=== PATIENT | male | born 1960 | race Caucasian/White ===

== ENCOUNTER → 2019-08-20 | Outpatient (REF) | payer OTHER ==
[~2019-08-20] MED LIST: ASPI325T5 PO; ATIV0.5T3 PO; BENA10TA PO; CEFD250S16 PO; FOLI400T PO; GABA300C2 PO; LEXA1TAB PO; MAG-400T7 PO; MICR10CA PO; PANT40TA2 PO; TYLE325T5 PO; VITA250L PO; verapamil PO
[2019-08-20 12:52] LABS: ALT/SGPT 43 U/L (12-78); BILIRUBIN,TOTAL 0.6 MG/DL (0.2-1.0); BLOOD UREA NITROGEN 24 MG/DL (7-18); CALCIUM LEVEL 9.3 MG/DL (8.8-10.2); CARBON DIOXIDE LEVEL 27 MEQ/L (21-32); CHLORIDE LEVEL 107 MEQ/L (98-107); CHOLESTEROL LEVEL 181 MG/DL (<200); CHOLESTEROL RISK RATIO 2.919 (<5); CREATININE FOR GFR 0.73 MG/DL (0.70-1.30); GLOMERULAR FILTRATION RATE > 60.0 (>49); GLUCOSE, FASTING 138 MG/DL (70-100); HDL CHOLESTEROL 62 MG/DL (>40); LDL CHOLESTEROL 99 MG/DL (<100); NON-HDL-C 119 MG/DL; POTASSIUM SERUM 3.6 MEQ/L (3.5-5.1); SODIUM LEVEL 140 MEQ/L (136-145); TOTAL PROTEIN 7.6 GM/DL (6.4-8.2); TRIGLYCERIDES LEVEL 99 MG/DL (<150)
[2019-08-20 15:23] LABS: MALB URINE SIEMENS 18.5 MG/L; MAU/CREAT RATIO 9.5 MCG/MG (0.0-30.0)
[2019-08-20 16:54] LABS: HEMOGLOBIN A1c 6.6 %
== END ==
LOC: M SFHCPLAZ 10:21
PROVIDERS: ATTEND Nurse Practitioner Adult Health
DX: E11.9 Type 2 diabetes mellitus without complications (principal); E78.2 Mixed hyperlipidemia; I10 Essential (primary) hypertension

== ENCOUNTER → 2019-08-28 | Outpatient (CLI) | payer OTHER ==
--- NOTE | 2019-08-29 09:33 | ECHO ---
DATE OF PROCEDURE: 08/28/2019 DATE OF : 1960 REFERRING PROVIDER: SUNITA Coffman PATIENT LOCATION: Outpatient. REASON FOR THE STUDY: Heart murmur, abnormal EKG. 2-D MEASUREMENTS: IVS: 1.7 cm LV: 4.9 cm LVPW: 1.7 cm LA: 3.8 cm Aorta: 3.6 cm IVC: 1.2 cm DOPPLER MEASUREMENTS: Peak velocity across the aortic valve: 1.6 m/s Peak velocity across the LVOT: 1.1 m/s Mitral E: 0.67, Mitral A: 0.76 with a ratio of 0.9 Maximum tricuspid valve velocity: 2.0 m/s 2-D COMMENTS: 1. Normal left ventricular size with moderately increased left ventricular wall thickness. Left ventricular systolic function is normal, estimated at 60-65%. 2. Normal left atrium. Normal right atrium and right ventricle. 3. The atrial septum appeared to be normal without evidence of defect or shunt. 4. Normal aortic root. 5. Trace pericardial effusion was noted, no evidence of cardiac component. 6. Mildly calcified aortic valve with normal leaflet excursion. Normal tricuspid valve, pulmonic valve, and mitral valve. The proximal pulmonary artery branches were not well visualized. 7. The inferior vena cava was normal in size, central venous pressure is most likely normal. DOPPLER: It detects trace mitral regurgitation, mild tricuspid regurgitation, mild pulmonic regurgitation. The calculated pulmonary artery systolic pressure was normal. Abnormal relaxation pattern was noted across the mitral valve leaflets as well as the mitral valve annulus consistent with features of grade 1 left ventricular diastolic dysfunction. IMPRESSION: 1. Normal global left ventricular systolic function with probably moderate concentric left ventricular hypertrophy. There are some features of grade 1 left ventricular diastolic dysfunction manifested by abnormal relaxation. 2. Aortic valve sclerosis without stenosis or aortic radiation. 3. Trace mitral regurgitation. 4. Trace to mild tricuspid regurgitation with a normal calculated pulmonary artery systolic pressure. 5. Mild pulmonic regurgitation. 6. Trace pericardial effusion, no evidence of cardiac tamponade. [facility]
== END ==
LOC: M CARPUL 08:48
PROVIDERS: ATTEND Nurse Practitioner Adult Health
DX: I45.10 Unspecified right bundle-branch block (principal); R01.1 Cardiac murmur, unspecified

== ENCOUNTER → 2019-11-28 | Outpatient (REF) | payer OTHER ==
[2019-11-28 11:00] LABS: ALBUMIN 3.8 GM/DL (3.2-5.2); ALT/SGPT 89 U/L (12-78); BILIRUBIN,TOTAL 0.7 MG/DL (0.2-1.0); BLOOD UREA NITROGEN 16 MG/DL (7-18); CARBON DIOXIDE LEVEL 30 MEQ/L (21-32); CHLORIDE LEVEL 102 MEQ/L (98-107); CHOLESTEROL LEVEL 184 MG/DL (<200); CHOLESTEROL RISK RATIO 2.875 (<5); CREATININE FOR GFR 0.83 MG/DL (0.70-1.30); GLOMERULAR FILTRATION RATE > 60.0 (>49); GLUCOSE, FASTING 195 MG/DL (70-100); HDL CHOLESTEROL 64 MG/DL (>40); LDL CHOLESTEROL 92 MG/DL (<100); NON-HDL-C 120 MG/DL; POTASSIUM SERUM 4.3 MEQ/L (3.5-5.1); SODIUM LEVEL 138 MEQ/L (136-145); TOTAL PROTEIN 7.6 GM/DL (6.4-8.2); TRIGLYCERIDES LEVEL 140 MG/DL (<150)
[2019-11-28 12:10] LABS: HEMOGLOBIN A1c 7.2 %
== END ==
LOC: M SFHCPLAZ 08:36
PROVIDERS: ATTEND Nurse Practitioner Adult Health
DX: I10 Essential (primary) hypertension (principal); E11.9 Type 2 diabetes mellitus without complications; E78.2 Mixed hyperlipidemia

== ENCOUNTER 2019-12-31 07:12 | Inpatient (IN) | payer OTHER ==
[~2019-12-31] VITALS: Ht 170.2 cm; Wt 97.5 kg
[2019-12-31] VITALS (7 sets, daily range): BP systolic 109–120; BP diastolic 55–79
[2019-12-31] MEDS ORDERED: NS 1,000 ML IV ONE ×3 (07:45→13:30)
[2019-12-31 08:27] LABS: HEMATOCRIT 36.4 % (42.0-52.0); HEMOGLOBIN 12.8 g/dl (13.5-17.5); MEAN CORPUSCULAR HEMOGLOBIN 31.8 pg (27.0-33.0); MEAN CORPUSCULAR HGB CONC 35.2 g/dl (32.0-36.5); MEAN CORPUSCULAR VOLUME 90.3 fl (80.0-96.0); PLATELET COUNT, AUTOMATED 172 10^3/uL (150-450); RED BLOOD COUNT 4.03 10^6/uL (4.30-6.10); WHITE BLOOD COUNT 6.5 10^3/uL (4.0-10.0)
[2019-12-31 08:38] LABS: PARTIAL THROMBOPLASTIN TIME 26.6 SECONDS (24.2-38.5); PROTHROMBIN TIME 13.4 SECONDS (12.5-14.3)
[2019-12-31 08:47] LABS: ATYPICAL LYMPH 1 % (0-5); EOSINOPHILS 2 % (0-3); LYMPHOCYTES 33 % (16-44); METAMYELOCYTES 2 % (0-0); MONOCYTES 4 % (0-5); NEUTROPHILS 24 % (28-66); PLATELET ESTIMATE NORMAL (NORMAL)
[2019-12-31] MEDS ORDERED: FOLIC ACID 1 MG TAB PO SCH (09:00)
[2019-12-31] MEDS ORDERED: MULTIVITAMINS/MINERALS THERAP 1 TAB PO SCH (09:00)
--- NOTE | 2019-12-31 10:17 | REP ---
INDICATION: cough/fever COMPARISON: 02/12/2013 TECHNIQUE: Portable AP view of the chest FINDINGS: The mediastinum and cardiac silhouette are stable and within normal limits for portable technique. The lung srivastava are clear without acute consolidation, effusion, or pneumothorax. Skeletal structures are intact. IMPRESSION: No acute cardiopulmonary process appreciated. <Electronically signed by Delfin Gatica > 12/31/19 [id number]
[2019-12-31 10:45] LABS: ALBUMIN 2.9 GM/DL (3.2-5.2); BILIRUBIN,DIRECT 2.4 MG/DL (0.0-0.2); BILIRUBIN,TOTAL 2.8 MG/DL (0.2-1.0); CK-MB VALUE MASS 11.9 NG/ML (<3.6); CREATININE FOR GFR 2.15 MG/DL (0.70-1.30); ETHYL ALCOHOL (ETHANOL) 0.003 % (0.000-0.010); GLOMERULAR FILTRATION RATE 33.5 (>49); MB/CK RELATIVE INDEX 1.36 (< OR =4); POTASSIUM SERUM 3.4 MEQ/L (3.5-5.1); TOTAL PROTEIN 6.5 GM/DL (6.4-8.2); TROPONIN I 0.04 NG/ML (< 0.10)
[2019-12-31] MEDS ORDERED: PIPERACILLIN/TAZOBACTAM SOD 3.375 GM in D5W MINI-BAG PLUS 50 ML IV ONE (11:15)
--- NOTE | 2019-12-31 12:53 | REP ---
INDICATION: leukocytosis/ vomiting. COMPARISON: None. TECHNIQUE: CT chest performed without the use of intravenous contrast. Sagittal and coronal reconstruction images are performed. FINDINGS: Lungs: There are bilateral fibro atelectatic changes. Mediastinum: No gross adenopathy. Katharina: No gross adenopathy. Axilla: No gross adenopathy. Pleura: No effusion. Heart: Not enlarged. Thoracic aorta: No aneurysm. Visualized osseous structures: There are mild degenerative changes of the spine without compression deformity. IMPRESSION: Fibro atelectatic changes in the dependent lungs with no acute abnormalities. <Electronically signed by Silvestre Fleming > 12/31/19 [id number]
--- NOTE | 2019-12-31 13:07 | REP ---
INDICATION: leukocytosis/ vomiting COMPARISON: None. TECHNIQUE: CT Scan of the abdomen and pelvis was performed without intravenous contrast. Sagittal and coronal reconstruction images performed. FINDINGS: Lung bases: There is a small hiatal hernia. Liver: There is a hepatomegaly, the length of the liver is approximately 22.5 cm. There is heterogeneous diffuse fatty infiltration of the liver. Gallbladder: Unremarkable. Spleen: Grossly unremarkable.. Adrenals: Nodular enlargement of the left adrenal gland is compatible with adrenal adenoma, within maximum diameter is 3 cm. Pancreas: Tiny pancreatic calcifications are seen compatible with prior pancreatitis. There is a cystic mass of the head of the pancreas extending anteriorly and superiorly with a maximum diameter of 5 cm. Kidneys: No hydronephrosis. A punctate calcification is seen in the left renal collecting system.. Ureters demonstrate no dilatation or calculus. Small and large bowel: There is sigmoid and left colonic diverticulosis without evidence of acute diverticulitis. There is a long segment of distal ileum (not terminal ileum) which demonstrates wall thickening and surrounding inflammatory change, with mild dilatation. This is compatible with some type of inflammatory bowel disease. Free fluid: None. Abdominal aorta: No aneurysm. Adenopathy: None. Appendix: Not inflamed. Osseous structures: There are degenerative changes of the spine without compression deformity. Pelvis: No mass. No bladder calculus seen. There is a relatively large right inguinal hernia containing noninflamed fat as well as a portion of the urinary bladder. IMPRESSION: There is a long segment of distal ileum (not terminal ileum) which demonstrates wall thickening and surrounding inflammatory change, with mild dilatation. This is compatible with some type of inflammatory bowel disease. Large right inguinal hernia containing noninflamed fat as well as a portion of the urinary bladder. Tiny pancreatic calcifications compatible with prior pancreatitis. Cystic mass head of the pancreas 5 cm in diameter. Hepatomegaly with diffuse fatty infiltration of the liver. Small hiatal hernia. <Electronically signed by Silvestre Fleming > 12/31/19 [id number]
[2019-12-31] MEDS ORDERED: PANT40TA29 PO (14:10)
[2019-12-31] MEDS ORDERED: LEVE1INJ5 SQ (14:10)
[2019-12-31] MEDS ORDERED: TADA20TA PO (14:10)
[2019-12-31] MEDS ORDERED: FENO145T7 PO (14:10)
[2019-12-31] MEDS ORDERED: PRAZ2CAP PO (14:10)
[2019-12-31] MEDS ORDERED: GABA-843 PO ×2 (14:10)
[2019-12-31] MEDS ORDERED: ESCI20TA PO (14:10)
[2019-12-31] MEDS ORDERED: ARIP1TAB6 PO (14:10)
[2019-12-31] MEDS ORDERED: VERA360C PO (14:10)
[2019-12-31] MEDS ORDERED: AMLO1TAB24 PO (14:10)
[2019-12-31] MEDS ORDERED: OLME40TA PO (14:10)
[2019-12-31] MEDS ORDERED: HYDR100T PO (14:10)
[2019-12-31] MEDS ORDERED: HUMA100I5 SQ (14:10)
[2019-12-31] MEDS ORDERED: METO1TAB33 PO (14:10)
[2019-12-31] MEDS ORDERED: NS 1,000 ML IV SCH (14:45)
[2019-12-31] MEDS ORDERED: THIAMINE 100 MG TAB PO ONE (14:45)
[2019-12-31] MEDS ORDERED: LORazepam 2 MG TAB PO PRN (14:45)
--- NOTE | 2019-12-31 15:29 | HPEPDOC ---
[facility] Medical History & Physical Date of Admission Dec 31, 2019 Date of Service: Dec 31, 2019 Attending Physician: Caroline Edmonds MD History and Physical CHIEF COMPLAINT: Increased weakness, diarrhea HISTORY OF PRESENT ILLNESS: Patient is a 59-year-old male with past mental history of hypertension, alcohol abuse, peripheral neuropathy, diabetes mellitus type 2, GERD, BPH, erectile dysfunction who presented to [facility] emergency room with the chief complaint of increased weakness and diarrhea since 12/28/2019. The patient states that beginning 12/28/2019, and experiencing up to 5 loose, watery bowel movements associated with increased weakness, fever of 103.4 at home, recent fall over the past several days. He denies any recent sick contacts, recent antibiotic use, recent hospitalizations, change in medications, change in diet, nausea/vomiting, shortness of breath, chest pain, decreased appetite or decreased by mouth intake. The patient is a heavy drinker and drinks 1 pint of vodka a day and has done so for over 20 years. His last drink was on 12/26/2019 and he has not been experiencing any signs or symptoms of withdrawal he states. He denies tremoring, hallucinations, diaphoresis. In the emergency room WBC 6.5, 34 bands seen on differential. Sodium was low at 129, chloride low at 89, potassium low at 3.4. Creatinine elevated at 2.15, creatinine is normal at baseline. Lactic acid elevated at 2.3, T bili 2.8, D bili 2.4, AST 534, ALP 193, lipase normal, CK-MB 1.9, troponin negative. The patient was given a total of over 3 L of normal saline for a blood pressure low at 88/36, all other vital signs were within normal limits. He was afebrile on exam. CT of the abdomen and pelvis showed a long segment of distal ileum (not terminal ileum) which demonstrates wall thickening and surrounding inflammatory change, with mild dilatation, poss compatible with some type of inflammatory bowel disease. Hepatomegaly and fatty liver seen. CT chest without contrast: neg for acute findings. Blood pressure improved after aggressive fluid hydration the patient remained weak. The patient was admitted for hypotension likely secondary to dehydration due to diarrhea, rule out infectious etiology, SIRS, alcoholic hepatitis, acute kidney injury likely prerenal cause. REVIEW OF SYSTEMS: CONSTITUTIONAL: Denies unexplained weight gain or weight loss, night sweats EYES: Denies eye drainage, eye pain, visual changes, dry/irritated eye EARS, NOSE, MOUTH, THROAT: Denies difficulty hearing, ringing in ears, mouth sores, loose teeth, sore throat, facial numbness or pain NECK: Denies swollen glands CARDIOVASCULAR: Denies irregular heartbeat, racing heart, chest pains, swelling of feet or legs, pain in legs with walking RESPIRATORY: Denies shortness of breath, night sweats, wheezing, sputum production, oxygen at home, coughing up blood, cough lasting > 1 month GASTROINTESTINAL: Denies abdominal pain, constipation, bloody stool, heartburn, nausea, vomiting GENITOURINARY: Denies painful urination, bloody urine, frequent urination, urgency, leaking urine, impotence MUSCULOSKELETAL: Denies joint pain, muscle pain, leg swelling INTEGUMENTARY: Denies rash, itching, new skin lesion, change in existing skin lesion, hair loss or increase, breast changes. NEUROLOGICAL: Denies headaches, dizziness, numbness or tingling PSYCHIATRIC: Denies recurrent bad thoughts, mood swings, hallucinations PAST MEDICAL HISTORY: 1. HTN 2. Alcohol abuse 3. Depression 4. Peripheral neuropathy 5. DM type II 6. GERD 7. BPH 8. Erectile dysfunction PAST SURGICAL HISTORY: 1. Left total knee replacement FAMILY HISTORY: Father: cancer, at 71 y/o Mother: healthy, Alive SOCIAL HISTORY: Alcohol use daily 1 pint of vodka per day, greater than 20 years. Last drink 12/26/2019. Prior smoker of cigars for 5 years quit recently, exact date unknown. Denies use of drugs. Primary care provider is local. He has been to rehabilitation in the past for his alcohol use most recently earlier this year. He is a full code. ALLERGIES: Please see below. HOME MEDICATIONS: Please see below. PHYSICAL EXAMINATION: VS: please see below CONSTITUTIONAL: Weak appearing, No acute distress, resting comfortably, AAO x 3 EYES: PERRLA, EOM intact HENT, MOUTH: Normocephalic, atraumatic, dry mucous membranes NECK: SUPPLE, no JVD, no lymphadenopathy, no carotid bruit CV: Regular rate and rhythm, S1S2 normal, no murmurs/rubs/gallops RESPIRATORY: Clear to auscultation bilaterally, no rales/rhonchi/wheezes GI: obese abd, BS positive in 4 quadrants, soft, nontender, nondistended, no rebound or guarding, no organomegaly : Deferred MUSCULOSKELETAL: Normal ROM. No cyanosis, clubbing, swelling, joint deformity, extremity edema INTEGUMENTARY: Intact, no rashes, no lesions, no erythema NEUROLOGIC: Cranial Nerves II-XII are intact, no focal deficits PSYCHIATRIC: Flat affect LABORATORY/MICROBIOLOGY: Please see below Blood cultures x 2 sets: pending GI panel: pending IMAGING: CT abd/pelvis: There is a long segment of distal ileum (not terminal ileum) which demonstrates wall thickening and surrounding inflammatory change, with mild dilatation. This is compatible with some type of inflammatory bowel disease. Large right inguinal hernia containing noninflamed fat as well as a portion of the urinary bladder. Tiny pancreatic calcifications compatible with prior pancreatitis. Cystic mass head of the pancreas 5 cm in diameter. Hepatomegaly with diffuse fatty infiltration of the liver. Small hiatal hernia. CT chest without contrast: Fibro atelectatic changes in the dependent lungs with no acute abnormalities. ASSESSMENT: 59-year-old male with past mental history of hypertension, alcohol abuse, peripheral neuropathy, diabetes mellitus type 2, GERD, BPH, erectile dysfunction who was admitted for hypotension likely secondary to dehydration due to diarrhea, rule out infectious etiology, SIRS, alcoholic hepatitis, acute kidney injury likely prerenal cause. PLAN: #Hypotension likely multifactorial 2/2 to dehydration from diarrhea, medication use -Hx of hypertension, on hydralazine, amlodipine, omelsartan and verapamil- all of which patient has been taking daily with diarrhea -Cannot r/o sepsis, septic shock as cause -S/p 3 L NS bolus in ER with improvement of BP from 68/36 --> 120/70 -Holding all antihypertensive meds -F/u infectious w/u, treatment -C/w IVFs at 125 cc/hr, tele, repeat lactic acid #SIRS -WBC wnl, Bandemia: 34, febrile at home but currently afebrile , LA elevated -Source is likely bacterial/gut -Discussed with GI who is consulted -F/u US abd to r/o gallbladder pathology/obstructive pathology, repeat LA, labs, cultures -Started on zosyn, IVFs at 125 cc/hr #Alcoholic hepatitis 2/2 to alcohol abuse -Hx of heavy alcohol abuse, elevated AST/ALT, D and T Bili -this can cause many of his presenting symptoms alone per GI -F/u daily CMP, avoid hepatotoxic medications -US abd to r/o gallbladder pathology -CIWA protocol with ativan, thiamine, folate, MV #Acute kidney injury likely 2/2 to prerenal cause, dehydration, hypovolemia -Cr at baseline is normal, Cr today is 2.3 -Avoid all nephrotoxic meds -F/u daily labs -C/w IVFs #Hypoglycemia likely 2/2 to decreased Po intake and acute infection -Hx of DM type II -BG 65 on admission -Holding all home insulins -FS AC/HS with CLD, advance diet to consistent carb as tolerated -Reincorporate insulins when BS normalize #Hepatomegaly, fatty liver 2/2 to alcohol abuse -AST/ALT, Bili all elevated -Daily CMP -GI to evaluate #Peripheral neuropathy -Resume gabapentin in AM #GERD -IV PPI, change to Po when tolerating diet #BPH -Holding home prazosin with low BP for now #Erectile dysfunction -Holding home tadalafil #HLD -Holding fenofibrate for now #DVT px -lovenox SC DISPOSITION: Admitted under inpatient status. GI consulted to see. Plan is PT/OT when BP normalizes/stabilizes. Vital Signs Vital Signs Date Time Temp Pulse Resp B/P (MAP) Pulse Ox O2 Delivery O2 Flow Rate FiO2 12/31/19 15:00 81 132/83 12/31/19 14:49 18 93 Room Air 12/31/19 08:25 99.0 Laboratory Data Labs 24H Laboratory Tests 2 12/31/19 07:37: Neutrophils (%) (Auto) , Nucleated Red Blood Cells % (auto) 1.7H, Neutrophils 24L, Band Neutrophils 34H, Lymphocytes (Manual) 33, Monocytes (Manual) 4, Eosinophils (Manual) 2, Metamyelocytes 2H, Atypical Lymphocytes 1, Red Blood Cell Morphology NORMAL, Platelet Estimate NORMAL, Prothrombin Time 13.4, P rothromb Time International Ratio 1.00, Activated Partial Thromboplast Time 26.6, Anion Gap 13, Glomerular Filtration Rate 33.5L, Lactic Acid Level 2.3*H, Calcium Level 11.0H, Total Bilirubin 2.8H, Direct Bilirubin 2.4H, Aspartate Amino Transf (AST/SGOT) 534H, Alanine Aminotransferase (ALT/SGPT) 193H, Alkaline Phosphatase 208H, Total Creatine Kinase 877H, Creatine Kinase MB 11.9H, Creatine Kinase MB Relative Index 1.36, Troponin I 0.04, Total Protein 6.5, Albumin 2.9L, Albumin/Globulin Ratio 0.8, Amylase Level 72, Lipase 211, Ethyl Alcohol Level 0.003 12/31/19 07:48: Bedside Glucose (Misc Panel) 90 12/31/19 09:07: Urine Color DAVID, Urine Appearance HAZY, Urine pH 5.0, Urine Specific [place] 1.018, Urine Protein 1+H, Urine Glucose (UA) NEGATIVE, Urine Ketones NEGATIVE, Urine Blood 2+H, Urine Nitrite NEGATIVE, Urine Bilirubin NEGATIVE, Urine Urob ilinogen 4.0H, Urine Leukocyte Esterase NEGATIVE, Urine WBC (Auto) 2, Urine RBC (Auto) 1, Urine Hyaline Casts (Auto) 0, Urine Bacteria (Auto) NEGATIVE, Urine Squamous Epithelial Cells 0, Urine Mucus (Auto) SMALL, Urine Sperm (Auto) 12/31/19 12:46: Bedside Glucose (Misc Panel) 95 CBC/BMP Laboratory Tests 12/31/19 07:37 Microbiology Microbiology 12/31/19 Blood Culture, Received Pending 12/31/19 Blood Culture, Received Pending 12/31/19 Respiratory Virus Panel (PCR) (ESTEFANIA) - Final, Complete 12/31/19 Campylobacter (PCR), Received Pending 12/31/19 Clostridium difficile Toxin A&B PCR, Received Pending 12/31/19 Plesiomonas shigelloides (PCR), Received Pending 12/31/19 Salmonella (PCR)(ESTEFANIA), Received Pending 12/31/19 Vibrio Species (PCR), Received Pending 12/31/19 Vibrio Cholerae (PCR), Received Pending 12/31/19 Yersinia enterocolitica (PCR), Received Pending 12/31/19 Enteroaggregative E. coli (PCR), Received Pending 12/31/19 Enteropathogenic E. coli (PCR), Received Pending 12/31/19 Enterotoxigenic E. coli (PCR), Received Pending 12/31/19 E. coli Shiga-like Toxin (PCR), Received Pending 12/31/19 Escherichia coli 0157 (PCR), Received Pending 12/31/19 Enteroinvasive E. coli/Shigella PCR, Received Pending 12/31/19 Cryptosporidium (PCR), Received Pending 12/31/19 Cyclospora cayetanensis (PCR), Received Pending 12/31/19 Entamoeba histolytica (PCR), Received Pending 12/31/19 Giardia lamblia (PCR), Received Pending 12/31/19 Adenovirus Type F 40/41 (PCR), Received Pending 12/31/19 Astrovirus (PCR), Received Pending 12/31/19 Norovirus GI/GII (PCR), Received Pending 12/31/19 Rotavirus A (PCR), Received Pending 12/31/19 Sapovirus I/II/IV/V (PCR), Received Pending Home Medications Scheduled Amlodipine Besylate (Amlodipine Besylate) 5 Mg Tablet, 5 MG PO DAILY Aripiprazole (Aripiprazole) 5 Mg Tablet, 5 MG PO QHS Escitalopram Oxalate (Escitalopram Oxalate) 20 Mg Tablet, 20 MG PO DAILY Fenofibrate Nanocrystallized (Fenofibrate) 145 Mg Tablet, 145 MG PO QHS Gabapentin (Gabapentin) 300 Mg Capsule, 300 MG PO QAM Gabapentin (Gabapentin) 300 Mg Capsule, 600 MG PO QHS Insulin Detemir (Levemir Flextouch) 100 Unit/1 Ml Insuln.pen, 45 UNITS SQ BID Insulin Lispro (Humalog Kwikpen U-100) 100 Unit/1 Ml Insuln.pen, 1 DOSE SQ AC PER SLIDING SCALE Metoprolol Succinate (Metoprolol Succinate) 100 Mg Tab.er.24h, 100 MG PO DAILY Olmesartan Medoxomil (Olmesartan Medoxomil) 40 Mg Tablet, 40 MG PO DAILY Pantoprazole Sodium (Pantoprazole Sodium) 40 Mg Tablet.dr, 40 MG PO DAILY Prazosin Hcl (Prazosin HCl) 2 Mg Capsule, 2 MG PO QHS Verapamil HCl (Verapamil HCl) 360 Mg Cap24h.pel, 360 MG PO DAILY hydrALAZINE HCL (Hydralazine HCl) 100 Mg Tablet, 100 MG PO BID Scheduled PRN Tadalafil (Tadalafil) 20 Mg Tablet, 20 MG PO DAILY PRN for ERECTILE DYSFUNCTION Allergies Coded Allergies: benazepril (Verified Allergy, Severe, ANGIOEDEMA, 12/31/19) ENVIROMENTAL (Verified Allergy, Unknown, 06/28/04) A-FIB/CHADSVASC A-FIB History Current/History of A-Fib/PAF?: No Current PO Anticoag Therapy: No Age/Risk Factor Scoring CHADSVASC: CHADSVASC Response (Comments) Value Age Risk Factor Age < 65 years old 0 Gender Risk Factor Male 0 Hx of CHF No 0 Hx of HTN Yes 1 Hx of Stroke/TIA/or VTE No 0 Hx of Diabetes Yes 1 Hx of Vascular Disease No 0 Total 2 Treatment Other anticoagulant ordered: Caroline Kirby MD Dec 31, 2019 15:29
[2019-12-31] MEDS: PANTOPRAZOLE 40MG VIAL (C9113 PER 1) IV SCH (17:41)
[2019-12-31] MEDS ORDERED: LORazepam 2 MG/ML VIAL IV PRN ×2 (18:15)
[2019-12-31] MEDS ORDERED: DEXTROSE 50% 50 ML SYRINGE IV STA (18:20)
[2019-12-31] MEDS: D5W/0.9% SODIUM CHLORIDE 1,000 ML IV SCH (18:26)
[2019-12-31 18:47] LABS: ABG BASE EXCESS 0.6 (-2.0-2.0); ABG HCO3 25.1 MEQ/L (22.0-26.0); ABG O2 SATURATION 96.2 % (95.0-99.0); ABG PARTIAL PRESSURE CO2 40.2 mmHg (35.0-45.0); ABG PARTIAL PRESSURE O2 83.1 mmHg (75.0-100.0); ABG TOTAL CO2 26.4 MEQ/L (23.0-31.0); ABG pH (ARTERIAL) 7.414 UNITS (7.350-7.450)
[2019-12-31] MEDS: PIPERACILLIN/TAZOBACTAM SOD 3.375 GM in D5W MINI-BAG PLUS 50 ML IV SCH (19:28)
[2019-12-31 19:52] LABS: CALCIUM LEVEL 8.8 MG/DL (8.8-10.2); CREATININE FOR GFR 1.56 MG/DL (0.70-1.30); GLOMERULAR FILTRATION RATE 48.6 (>49); POTASSIUM SERUM 2.9 MEQ/L (3.5-5.1)
[2019-12-31] MEDS ORDERED: GLUCOSE 4GM CHEW TABLET PO PRN (20:00)
[2019-12-31] MEDS ORDERED: GLUCAGON INJ 1MG VIAL SC PRN (20:00)
[2019-12-31] MEDS ORDERED: DEXTROSE 50% 50 ML SYRINGE IV PRN (20:00)
[2019-12-31] MEDS: KCL 10MEQ/100ML SWI (KRUN) 10 MEQ in IV 1 EA IV SCH ×2 (20:11→21:11)
[2019-12-31] MEDS ORDERED: THIAMINE 100 MG TAB PO SCH (21:00)
--- NOTE | 2019-12-31 21:01 | ECGEPIP ---
[facility] - ED Test Date: 2019-12-31 Pat Name: DEMETRIA HILL Department: Room: - Gender: Male Materials Handling Coordinator: : 1960 Requested By: REYES Wang Order Number: [id number] Reading MD: Reyes Ayon Measurements Intervals [place] Rate: 101 P: -17 CA: 132 QRS: 3 QRSD: 168 T: 31 QT: 419 QTc: 543 Interpretive Statements SINUS TACHYCARDIA POSSIBLE LEFT ATRIAL ENLARGEMENT RIGHT BUNDLE BRANCH BLOCK Baseline artifact Comparison tracing not on file Electronically Signed on 12-31-2019 21:01:01 EST by Reyes Ayon
--- NOTE | 2019-12-31 21:42 | REPVR ---
PROCEDURE INFORMATION: Exam: US Abdomen Complete Exam date and time: 12/31/19 (8:18pm) Age: 59 years old Clinical indication: Alcoholic hepatitis. Possible gallbladder stones / obstructive causes. TECHNIQUE: Imaging protocol: Real-time ultrasound of the abdomen with image documentation COMPARISON: CT ABDOMEN PELVIS of 12/31/19 FINDINGS: The liver shows fatty infiltration (dense, echogenic texture), with no focal lesions. The spleen is normal in size (10.5 cm length). The gallbladder demonstrates normal wall thickness (1.5 mm), with no stones nor sludge appreciated. No pericholecystic fluid is seen. The sonographic Hooper's sign is reported to be (-). The CBD is mildly prominent (5-6 mm diameter). The kidneys are normal in size, with no solid masses and no hydronephrosis noted. The right kidney measures 13.6 cm in length. The left kidney measures 14.6 cm in length. Small peripheral left renal cyst (11 mm size). Hypoechoic mass (6.0 x 3.8 x 4.0 cm size) (4.6 cm avg. size) at the pancreatic head region (also seen on recent CT scan) No ascites. The abdominal aorta and IVC appear unremarkable. IMPRESSION: The gallbladder appears unremarkable, with no stones identified. The sonographic Hooper's sign is reported to be (-). The CBD is mildly prominent (5-6 mm diameter). No ductal stone is seen. Fatty liver infiltration. Indeterminate hypoechoic (cystic) mass at the pancreatic head / proximal pancreatic body region (also seen on recent CT scan) (4.6 cm avg. size). A pancreatic cystic mass of this size, in a patient of this age, usually warrants further evaluation. Can consider: endoscopic ultrasound; fine needle aspiration; MRI scan; enhanced CT scan with pancreas protocol. Consultation with GI and/or surgical service can also be considered initially, to help in further diagnostic and management plan. Electronically signed by: Renata Polanco On 12/31/2019 21:41:38 PM
[2020-01-01] VITALS (11 sets, daily range): BP systolic 98–148; BP diastolic 45–91
[2020-01-01] MEDS: PIPERACILLIN/TAZOBACTAM SOD 3.375 GM in D5W MINI-BAG PLUS 50 ML IV SCH ×4 (00:40→19:30)
[2020-01-01 01:37] LABS: CALCIUM LEVEL 8.6 MG/DL (8.8-10.2); CREATININE FOR GFR 1.38 MG/DL (0.70-1.30); POTASSIUM SERUM 3.2 MEQ/L (3.5-5.1)
[2020-01-01] MEDS: KCL 10MEQ/100ML SWI (KRUN) 10 MEQ in IV 1 EA IV SCH ×4 (02:04→12:07)
[2020-01-01] MEDS: D5W/0.9% SODIUM CHLORIDE 1,000 ML IV SCH ×2 (03:15→10:03)
[2020-01-01 06:08] LABS: BASO % 0.3 % (0.0-1.0); EOS % 0.6 % (0.0-3.0); HEMATOCRIT 29.9 % (42.0-52.0); LYMPH # 0.9 10^3/uL (1.5-5.0); LYMPH % 24.9 % (24.0-44.0); MEAN CORPUSCULAR HEMOGLOBIN 31.8 pg (27.0-33.0); MEAN CORPUSCULAR HGB CONC 34.1 g/dl (32.0-36.5); MEAN CORPUSCULAR VOLUME 93.1 fl (80.0-96.0); MONO # 0.5 10^3/uL (0.0-0.8); MONO % 13.4 % (0.0-5.0); NEUTROPHILS # 2.1 10^3/uL (1.5-8.5); NEUTROPHILS % 59.9 % (36.0-66.0); PLATELET COUNT, AUTOMATED 133 10^3/uL (150-450); RED BLOOD COUNT 3.21 10^6/uL (4.30-6.10); WHITE BLOOD COUNT 3.5 10^3/uL (4.0-10.0)
[2020-01-01 06:13] LABS: HEMOGLOBIN 10.2 g/dl (13.5-17.5)
[2020-01-01 06:38] LABS: ALBUMIN 2.3 GM/DL (3.2-5.2); ALT/SGPT 102 U/L (12-78); BILIRUBIN,TOTAL 1.3 MG/DL (0.2-1.0); BLOOD UREA NITROGEN 53 MG/DL (7-18); CARBON DIOXIDE LEVEL 26 MEQ/L (21-32); CHLORIDE LEVEL 105 MEQ/L (98-107); CREATININE FOR GFR 1.26 MG/DL (0.70-1.30); GLOMERULAR FILTRATION RATE > 60.0 (>49); GLUCOSE, FASTING 116 MG/DL (70-100); POTASSIUM SERUM 3.2 MEQ/L (3.5-5.1); SODIUM LEVEL 139 MEQ/L (136-145); TOTAL PROTEIN 5.2 GM/DL (6.4-8.2)
[2020-01-01] MEDS ORDERED: KCL 20MEQ IN 100ML SWI (KRUN) 20 MEQ in IV 1 EA IV ONE ×2 (07:00)
[2020-01-01 07:28] LABS: MAGNESIUM LEVEL 1.2 MG/DL (1.8-2.4)
[2020-01-01] MEDS: KCL 10MEQ/100ML SWI (KRUN) 100 ML IV SCH ×2 (07:50→09:04)
[2020-01-01] MEDS: ENOXAPARIN 40MG/0.4ML SYRINGE (J1650 PER 10MG) SC SCH (07:50)
[2020-01-01] MEDS ORDERED: MAG SULF 1GM/100ML (MAG RUN) 1 GM in IV 1 EA IV ONE ×2 (08:30→10:00)
[2020-01-01] MEDS ORDERED: THIAMINE 200MG/2ML VIAL (J3411 PER 100MG) IM SCH (09:00)
[2020-01-01] MEDS ORDERED: KCL 10MEQ/100ML SWI (KRUN) 10 MEQ in IV 1 EA IV SCH (09:30)
--- NOTE | 2020-01-01 12:33 | IPNPDOC ---
Date Seen The patient was seen on 01/01/20. Progress Note SUBJECTIVE: BS 127 this AM and later 273, likely increased with advancing to clear liquid diet. Stopping D5 IVFs, will wait until pre-dinner finger stick before adding ISS. More awake and alert this AM, appropriate and following commands . Total of 3 BM since admission. GI panel pending. Patient has flat affect but denies chest pain, shortness of breath, n/v/d, fevers, chills, abdominal pain. OBJECTIVE: PHYSICAL EXAMINATION: VS: please see below CONSTITUTIONAL: No acute distress, sitting up at bedside chair, AAO x 3 EYES: PERRLA, EOM intact HENT, MOUTH: Normocephalic, atraumatic, moist mucous membranes NECK: SUPPLE, no JVD, no lymphadenopathy, no carotid bruit CV: Regular rate and rhythm, S1S2 normal, no murmurs/rubs/gallops RESPIRATORY: Clear to auscultation bilaterally, no rales/rhonchi/wheezes GI: obese abd, BS positive in 4 quadrants, soft, nontender, nondistended, no rebound or guarding, no organomegaly : Deferred MUSCULOSKELETAL: Normal ROM. No cyanosis, clubbing, swelling, joint deformity, extremity edema INTEGUMENTARY: Intact, no rashes, no lesions, no erythema NEUROLOGIC: Cranial Nerves II-XII are intact, no focal deficits PSYCHIATRIC: Flat affect LABORATORY/MICROBIOLOGY: Blood cultures x 2 sets: NG at 24 hours. GI panel: pending IMAGING: US abd: The gallbladder appears unremarkable, with no stones identified. The sonographic Hooper's sign is reported to be (-). The CBD is mildly prominent (5-6 mm diameter). No ductal stone is seen. Fatty liver infiltration. Indeterminate hypoechoic (cystic) mass at the pancreatic head / proximal pancreatic body region (also seen on recent CT scan) (4.6 cm avg. size). A pancreatic cystic mass of this size, in a patient of this age, usually warrants further evaluation. Can consider: endoscopic ultrasound; fine needle aspiration; MRI scan; enhanced CT scan with pancreas protocol. Consultation with GI and/or surgical service can also be considered initially, to help in further diagnostic and management plan. CT abd/pelvis: There is a long segment of distal ileum (not terminal ileum) which demonstrates wall thickening and surrounding inflammatory change, with mild dilatation. This is compatible with some type of inflammatory bowel disease. Large right inguinal hernia containing noninflamed fat as well as a portion of the urinary bladder. Tiny pancreatic calcifications compatible with prior pancreatitis. Cystic mass head of the pancreas 5 cm in diameter. Hepatomegaly with diffuse fatty infiltration of the liver. Small hiatal hernia. CT chest without contrast: Fibro atelectatic changes in the dependent lungs with no acute abnormalities. ASSESSMENT: 59-year-old male with past mental history of hypertension, alcohol abuse, peripheral neuropathy, diabetes mellitus type 2, GERD, BPH, erectile dysfunction who was admitted for hypotension likely secondary to dehydration due to diarrhea, rule out infectious etiology, SIRS, alcoholic hepatitis, acute kidney injury likely prerenal cause. PLAN: #Hypotension likely multifactorial 2/2 to dehydration from diarrhea, medication use- Resolved. Cannot r/o septic shock as cause. - Positive 4.9 Liters since admission, BP much improved, decreased diarrhea -Hx of hypertension, on hydralazine, amlodipine, omelsartan and verapamil- all of which patient has been taking daily prior to admission with diarrhea -Advanced diet to CLD, stopped IVFs. -Continue to hold all antihypertensive meds -F/u infectious w/u, treatment #SIRS- resolved -WBC now low at 3.5, Bandemia on admission: 34, afebrile , LA wnl -Source is likely bacterial/gut -Discussed with GI who has seen, requesting MRI abd -US abd above, BCx NG to date, Gi panel pending -F/u MRI abd -C/w zosyn #Alcoholic hepatitis 2/2 to alcohol abuse -Hx of heavy alcohol abuse. Elevated AST/ALT, D and T Bili- all improving -F/u daily CMP, avoid hepatotoxic medications -US abd above #Acute kidney injury likely 2/2 to prerenal cause, dehydration, hypovolemia- Resolved -Cr wnl today -Avoid all nephrotoxic meds -F/u daily labs -Stopped IVFs, on CLD #Hypoglycemia likely 2/2 to decreased Po intake and acute infection- Resolved -According to patient, hx DM type II and of hypoglycemic episodes -S/p 2 amp D50, D5 0.5% IVFs at 125 throughout the evening and AM today. Stopped this afternoon -BG 270 this afternoon. -Will see how blood sugar does while off D5 IVFs. If does well, will initiate ISS after dinner -Holding all home insulins for now -FS AC/HS with CLD, advance diet to consistent carb as tolerated #Pancreatic mass (cyst?) -Please see US abd and CT abd above -F/u MRI abdomen with pancreatic protocol today -GI following #Hyponatremia, acute and likely 2/2 to hypovolemia -129 on admission, 139 this AM -Stopped IVFs -F/u AM labs #Hypokalemia, acute likely 2/2 to decreased PO intake, diarrhea -Supplementing 40 mEq this AM -F/u K at 13:00 and daily in AM #Hypomagnesemia, acute likely 2/2 to decreased Po intake, diarrhea -Given mag run this AM -F/u mag daily #Hyperammonemia, likely chronic -Ammonia 38--> 41. No increased mental status changes -Per GI, will hold off on treating this currently unless mental status worsens #Hepatomegaly, fatty liver 2/2 to alcohol abuse -AST/ALT, Bili-improving -Daily CMP -US abd above #Alcohol abuse -States last drink was last week, no s/s of withdrawl this AM -CIWA protocol with ativan, thiamine, folate, MV #Peripheral neuropathy -C/w gabapentin #GERD -IV PPI, change to Po when tolerating diet #BPH -Holding home prazosin #Erectile dysfunction -Will not restart tadalafil #HLD -Resume fenofibrate #DVT px -lovenox SC DISPOSITION: Admitted under inpatient status. GI consulted to see. Plan is PT/OT when BP normalizes/stabilizes. VS, I&O, 24H, Fishbone Vital Signs/I&O Vital Signs Date Time Temp Pulse Resp B/P (MAP) Pulse Ox O2 Delivery O2 Flow Rate FiO2 01/01/20 10:00 99 22 106/79 (88) 93 Nasal Cannula 0.0 01/01/20 08:00 98.9 I&O- Last 24 Hours up to 6 AM 01/01/20 06:00 Intake Total 4850 ml Output Total 600 ml Balance 4250 ml Laboratory Data 24H LABS Laboratory Tests 2 12/31/19 12:46: Bedside Glucose (Misc Panel) 95 12/31/19 18:18: Bedside Glucose (Misc Panel) 18*L 12/31/19 18:24: Bedside Glucose (Misc Panel) 186H 12/31/19 18:30: Blood Gas Bicarbonate Standard 25.0, Arterial Blood pH 7.414, Arterial Blood Partial Pressure CO2 40.2, Arterial Blood Partial Pressure O2 83.1, Arterial Blood Total CO2 26.4, Arterial Blood HCO3 25.1, Arterial Blood Base Excess 0.6, Arterial Blood Oxygen Saturation 96.2 12/31/19 18:31: Anion Gap 10, Glomerular Filtration Rate 48.6L, Lactic Acid Level 0.6, Calcium Level 8.8#, Ammonia 38H 12/31/19 18:44: Bedside Glucose (Misc Panel) 111 12/31/19 19:50: Bedside Glucose (Misc Panel) 73L 12/31/19 20:32: Bedside Glucose (Misc Panel) 105 12/31/19 21:54: Bedside Glucose (Misc Panel) 86 12/31/19 22:58: Bedside Glucose (Misc Panel) 85 01/01/20 01:04: Anion Gap 7L, Glomerular Filtration Rate 56.0, Calcium Level 8.6L 01/01/20 05:26: Bedside Glucose (Misc Panel) 127H 01/01/20 05:48: Immature Granulocyte % (Auto) 0.9, Neutrophils (%) (Auto) 59.9, Lymphocytes (%) (Auto) 24.9, Monocytes (%) (Auto) 13.4H, Eosinophils (%) (Auto) 0.6, Basophils (%) (Auto) 0.3, Neutrophils # (Auto) 2.1, Lymphocytes # (Auto) 0.9L, Monocytes # (Auto) 0.5, Eosinophils # (Auto) 0.0, Basophils # (Auto) 0.0, Nucleated Red Blood Cells % (auto) 0.0, Anion Gap 8, Glomerular Filtration Rate > 60.0, Calcium Level 8.0L, Magnesium Level 1.2L, Total Bilirubin 1.3#H, Aspartate Amino Transf (AST/SGOT) 197H, Alanine Aminotransferase (ALT/SGPT) 102H, Alkaline Phosphatase 155H, Ammonia 41H, Total Protein 5.2L, Albumin 2.3#L, A lbumin/Globulin Ratio 0.8 CBC/BMP Laboratory Tests 12/31/19 18:31 01/01/20 01:04 01/01/20 05:48 Microbiology Microbiology 12/31/19 Blood Culture - Preliminary, Resulted No growth after 24 hours . All specim... 12/31/19 Blood Culture - Preliminary, Resulted No growth after 24 hours . All specim... 12/31/19 Respiratory Virus Panel (PCR) (ESTEFANIA) - Final, Complete 12/31/19 Campylobacter (PCR), Received Pending 12/31/19 Clostridium difficile Toxin A&B PCR, Received Pending 12/31/19 Plesiomonas shigelloides (PCR), Received Pending 12/31/19 Salmonella (PCR)(ESTEFANIA), Received Pending 12/31/19 Vibrio Species (PCR), Received Pending 12/31/19 Vibrio Cholerae (PCR), Received Pending 12/31/19 Yersinia enterocolitica (PCR), Received Pending 12/31/19 Enteroaggregative E. coli (PCR), Received Pending 12/31/19 Enteropathogenic E. coli (PCR), Received Pending 12/31/19 Enterotoxigenic E. coli (PCR), Received Pending 12/31/19 E. coli Shiga-like Toxin (PCR), Received Pending 12/31/19 Escherichia coli 0157 (PCR), Received Pending 12/31/19 Enteroinvasive E. coli/Shigella PCR, Received Pending 12/31/19 Cryptosporidium (PCR), Received Pending 12/31/19 Cyclospora cayetanensis (PCR), Received Pending 12/31/19 Entamoeba histolytica (PCR), Received Pending 12/31/19 Giardia lamblia (PCR), Received Pending 12/31/19 Adenovirus Type F 40/41 (PCR), Received Pending 12/31/19 Astrovirus (PCR), Received Pending 12/31/19 Norovirus GI/GII (PCR), Received Pending 12/31/19 Rotavirus A (PCR), Received Pending 12/31/19 Sapovirus I/II/IV/V (PCR), Received Pending Current Medications Current Medications Medications (Trade) Dose Ordered Sig/Mary Route PRN Reason Start Time Stop Time Status Last Admin Dose Admin Dextrose (Dextrose 50%) 25 ml ASDIRECTED PRN IV SEE LABEL COMMENTS 12/31/19 20:00 12/31/19 20:33 Dextrose (Dextrose 50%) 50 ml STAT STAT IV 12/31/19 18:20 12/31/19 18:22 DC 12/31/19 18:26 Dextrose/Sodium Chloride 1,000 ml @ 125 mls/hr Q8H IV 12/31/19 18:30 01/01/20 03:15 Enoxaparin Sodium (Lovenox) 40 mg DAILY SC 01/01/20 09:00 01/01/20 07:50 Folic Acid (Folic Acid) 1 mg DAILY PO 12/31/19 09:00 12/31/19 18:06 DC Folic Acid 1 mg/ Sodium Chloride 50.2 ml @ 100.4 mls/ hr Q24H IV 01/01/20 18:00 Glucagon (Glucagon) 1 mg ASDIRECTED PRN SC SEE LABEL COMMENTS 12/31/19 20:00 Glucose (Glucose) 16 GM ASDIRECTED PRN PO SEE LABEL COMMENTS 12/31/19 20:00 Home Med (Med Rec Complete!) ASDIRECTED XX 12/31/19 14:15 12/31/19 14:17 DC Lorazepam (Ativan) 2 mg ASDIRECTED PRN IV SEE PROTOCOL 12/31/19 18:15 Lorazepam (Ativan) 2 mg ASDIRECTED PRN PO SEE PROTOCOL 12/31/19 14:45 12/31/19 18:06 DC 12/31/19 15:55 Lorazepam (Ativan) 2 mg Q2HP PRN IV AGITATION 12/31/19 18:15 12/31/19 18:11 DC Multivitamins (Theragram-M) 1 tab DAILY PO 12/31/19 09:00 12/31/19 18:06 DC Pantoprazole Sodium (Protonix) 40 mg Q24H IV 12/31/19 15:00 12/31/19 17:41 Piperacillin Sod/ Tazobactam Sod 3.375 gm/Dextrose 50 ml @ 50 mls/hr Q6H IV 12/31/19 19:00 01/01/20 06:31 Potassium Chloride 10 meq/ IV Miscellaneous Supplies 100 ml @ 100 mls/hr 0145,0245 IV 01/01/20 01:45 01/01/20 05:00 DC 01/01/20 03:15 Potassium Chloride 10 meq/ IV Miscellaneous Supplies 100 ml @ 100 mls/hr Q1H IV 12/31/19 20:00 12/31/19 21:59 DC 12/31/19 21:11 Potassium Chloride 10 meq/ IV Miscellaneous Supplies 100 ml @ 100 mls/hr Q1H IV 01/01/20 09:30 01/01/20 13:29 Cancel Potassium Chloride 10 meq/ IV Miscellaneous Supplies 100 ml @ 100 mls/hr Q1H IV 01/01/20 11:00 01/01/20 12:59 01/01/20 12:07 Potassium Chloride 100 ml @ 100 mls/hr 0700,0800 IV 01/01/20 07:00 01/01/20 11:00 DC 01/01/20 09:04 Sodium Chloride 1,000 ml @ 125 mls/hr Q8H IV 12/31/19 14:45 12/31/19 18:22 DC 12/31/19 15:08 Thiamine HCl (Thiamine HCl) 100 mg BID PO 12/31/19 21:00 12/31/19 18:06 DC Thiamine HCl (VITAMIN B1 INJection) 100 mg DAILY IM 01/01/20 09:00 01/01/20 07:51 Allergies Coded Allergies: benazepril (Verified Allergy, Severe, ANGIOEDEMA, 12/31/19) ENVIROMENTAL (Verified Allergy, Unknown, 06/28/04) Caroline Edmonds MD Jan 01, 2020 12:33
[2020-01-01] MEDS: PANTOPRAZOLE 40MG VIAL (C9113 PER 1) IV SCH (14:05)
[2020-01-01 14:06] LABS: CALCIUM LEVEL 8.3 MG/DL (8.8-10.2); CREATININE FOR GFR 1.3 MG/DL (0.70-1.30); GLOMERULAR FILTRATION RATE 59.9 (>49); MAGNESIUM LEVEL 1.5 MG/DL (1.8-2.4); POTASSIUM SERUM 3.7 MEQ/L (3.5-5.1)
[2020-01-01] MEDS ORDERED: PROHANCE 279.3MG/ML 5ML VIAL As Ordered ONE (14:41)
[2020-01-01] MEDS ORDERED: PROHANCE 279.3MG/ML 15ML VIAL As Ordered ONE (14:41)
--- NOTE | 2020-01-01 16:11 | REP ---
INDICATION: panreatic protocol needed for pancreatic mass/cyst. COMPARISON: CT 12/31/2019. TECHNIQUE: Multiple sequences obtained in the axial coronal planes prior to and following the intravenous administration of 20 cc ProHance. FINDINGS: There is a cystic mass in the anterior head of the pancreas which measures approximately 6.2 x 3.7 cm. The wall of this cystic mass is mildly thickened and mildly enhances with mild irregularity along the inner wall of the cyst. The more distal pancreatic duct is mildly dilated up to about 5 mm. No other discrete pancreatic lesion is seen. The common bile duct is not dilated. The gallbladder is grossly unremarkable. There is no intrahepatic biliary dilatation. There is hepatomegaly. The length of the liver is approximately 23 cm. There is signal throughout the liver characteristic of heterogeneous diffuse fatty infiltration. Small cyst is noted in the left lobe of the liver which measures approximately 8 mm in diameter. No significant abnormality is seen of the spleen. There is a left adrenal adenoma again noted. Cyst in the posterior upper pole left kidney measures 1.3 cm in diameter. There is no hydronephrosis bilaterally. There is no adenopathy. There is no free fluid. IMPRESSION: Cystic mass anterior head of pancreas which measures 6.2 x 3.7 cm. The wall is mildly irregular and mildly enhances. There is mild dilatation of the distal pancreatic duct. Recent CT exam showed tiny pancreatic calcifications in the body of the pancreas indicating chronic pancreatitis. This cystic mass could possibly represent a benign pseudocyst. However cystic neoplasm needs to be excluded. <Electronically signed by Silvestre Fleming > 01/01/20 0709
[2020-01-01] MEDS ORDERED: FOLIC ACID 1 MG in NS 50 ML IV SCH (18:00)
[2020-01-01] MEDS: GABAPENTIN 300 MG CAP PO SCH (20:21)
[2020-01-01] MEDS: FENOFIBRATE 145 MG TAB (TRICOR) PO SCH (20:22)
[2020-01-01 20:42] LABS: CLOSTRIDIUM DIFFICILE PCR POSITIVE (NEGATIVE)
[2020-01-01] MEDS ORDERED: PRAZOSIN 1 MG CAP PO SCH (21:00)
[2020-01-01] MEDS ORDERED: LEVEMIR (INSULIN DETEMIR) 1 UNITS/0.01ML SC SCH (21:00)
[2020-01-01] MEDS ORDERED: HumaLOG INSULIN (NovoLOG) PER UNIT SC SCH (21:00)
[2020-01-01] MEDS: LORazepam 2 MG TAB PO PRN ×2 (21:37→22:32)
[2020-01-02] VITALS (10 sets, daily range): BP systolic 91–153; BP diastolic 51–97
[2020-01-02] MEDS ORDERED: LORazepam 2 MG/ML VIAL IV PRN (00:15)
[2020-01-02] MEDS: PIPERACILLIN/TAZOBACTAM SOD 3.375 GM in D5W MINI-BAG PLUS 50 ML IV SCH ×2 (00:50→06:42)
[2020-01-02 05:50] LABS: BASO % 0.7 % (0.0-1.0); EOS # 0.1 10^3/uL (0.0-0.5); EOS % 1.3 % (0.0-3.0); HEMATOCRIT 30.3 % (42.0-52.0); HEMOGLOBIN 10.1 g/dl (13.5-17.5); LYMPH # 1.4 10^3/uL (1.5-5.0); LYMPH % 31.1 % (24.0-44.0); MEAN CORPUSCULAR HEMOGLOBIN 31.8 pg (27.0-33.0); MEAN CORPUSCULAR HGB CONC 33.3 g/dl (32.0-36.5); MEAN CORPUSCULAR VOLUME 95.3 fl (80.0-96.0); MONO # 0.7 10^3/uL (0.0-0.8); MONO % 15.7 % (0.0-5.0); NEUTROPHILS # 2.1 10^3/uL (1.5-8.5); NEUTROPHILS % 47.8 % (36.0-66.0); PLATELET COUNT, AUTOMATED 144 10^3/uL (150-450); RED BLOOD COUNT 3.18 10^6/uL (4.30-6.10); WHITE BLOOD COUNT 4.5 10^3/uL (4.0-10.0)
[2020-01-02 06:23] LABS: ALBUMIN 2.3 GM/DL (3.2-5.2); ALT/SGPT 78 U/L (12-78); BILIRUBIN,TOTAL 1.1 MG/DL (0.2-1.0); BLOOD UREA NITROGEN 30 MG/DL (7-18); CALCIUM LEVEL 7.9 MG/DL (8.8-10.2); CARBON DIOXIDE LEVEL 29 MEQ/L (21-32); CHLORIDE LEVEL 108 MEQ/L (98-107); CREATININE FOR GFR 0.81 MG/DL (0.70-1.30); GLOMERULAR FILTRATION RATE > 60.0 (>49); GLUCOSE, FASTING 35 MG/DL (70-100); POTASSIUM SERUM 2.9 MEQ/L (3.5-5.1); SODIUM LEVEL 141 MEQ/L (136-145); TOTAL PROTEIN 5.9 GM/DL (6.4-8.2)
[2020-01-02] MEDS: HumaLOG INSULIN (NovoLOG) PER UNIT SC SCH ×3 (07:30→16:45)
[2020-01-02] MEDS ORDERED: HumaLOG INSULIN (NovoLOG) PER UNIT SC SCH ×2 (07:30→21:00)
[2020-01-02] MEDS ORDERED: POTASSIUM CHLORIDE 10 MEQ SR TABLET PO ONE (07:30)
[2020-01-02 07:50] LABS: MAGNESIUM LEVEL 1.2 MG/DL (1.8-2.4)
[2020-01-02] MEDS: GABAPENTIN 300 MG CAP PO SCH ×2 (08:14→20:28)
[2020-01-02] MEDS: ESCITALOPRAM OXALATE 10 MG TAB (LEXAPRO) PO SCH (08:14)
[2020-01-02] MEDS: PANTOPRAZOLE 40MG TAB (PROTONIX) PO SCH (08:15)
[2020-01-02] MEDS: MULTIVITAMINS/MINERALS THERAP 1 TAB PO SCH (08:15)
[2020-01-02] MEDS: THIAMINE 100 MG TAB PO SCH (08:15)
[2020-01-02] MEDS: FOLIC ACID 1 MG TAB PO SCH (08:15)
[2020-01-02] MEDS: ENOXAPARIN 40MG/0.4ML SYRINGE (J1650 PER 10MG) SC SCH (08:16)
[2020-01-02] MEDS: MAG SULF 1GM/100ML (MAG RUN) 1 GM in IV 1 EA IV SCH ×2 (08:32→10:11)
--- NOTE | 2020-01-02 11:25 | IPNPDOC ---
Date Seen The patient was seen on 01/02/20. Progress Note SUBJECTIVE: BS 38 this AM, stopped levemir BID. C. diff positive, started vancomycin. 2 BM over 24 hours. Denies chest pain, shortness of breath, n/v, fevers, chills, abdominal pain. OBJECTIVE: PHYSICAL EXAMINATION: VS: please see below CONSTITUTIONAL: No acute distress, sitting up at bedside chair, AAO x 3, slow to respond at times EYES: PERRLA, EOM intact HENT, MOUTH: Normocephalic, atraumatic, moist mucous membranes NECK: SUPPLE, no JVD, no lymphadenopathy, no carotid bruit CV: Regular rate and rhythm, S1S2 normal, no murmurs/rubs/gallops RESPIRATORY: Clear to auscultation bilaterally, no rales/rhonchi/wheezes GI: obese abd, BS positive in 4 quadrants, soft, nontender, nondistended, no rebound or guarding, no organomegaly : Deferred MUSCULOSKELETAL: Normal ROM. No cyanosis, clubbing, swelling, joint deformity, extremity edema INTEGUMENTARY: Intact, no rashes, no lesions, no erythema NEUROLOGIC: Cranial Nerves II-XII are intact, no focal deficits PSYCHIATRIC: Flat affect LABORATORY/MICROBIOLOGY: Blood cultures x 2 sets: NG at 24 hours. GI panel: pending C. diff PCR: positive IMAGING: MRI abd 01/01/20: Cystic mass anterior head of pancreas which measures 6.2 x 3.7 cm. The wall is mildly irregular and mildly enhances. There is mild dilatation of the distal pancreatic duct. Recent CT exam showed tiny pancreatic calcifications in the body of the pancreas indicating chronic pancreatitis. This cystic mass could possibly represent a benign pseudocyst. However cystic neoplasm needs to be excluded. US abd: The gallbladder appears unremarkable, with no stones identified. The sonographic Hooper's sign is reported to be (-). The CBD is mildly prominent (5-6 mm diameter). No ductal stone is seen. Fatty liver infiltration. Indeterminate hypoechoic (cystic) mass at the pancreatic head / proximal pancreatic body region (also seen on recent CT scan) (4.6 cm avg. size). A pancreatic cystic mass of this size, in a patient of this age, usually warrants further evaluation. Can consider: endoscopic ultrasound; fine needle aspiration; MRI scan; enhanced CT scan with pancreas protocol. Consultation with GI and/or surgical service can also be considered initially, to help in further diagnostic and management plan. CT abd/pelvis: There is a long segment of distal ileum (not terminal ileum) which demonstrates wall thickening and surrounding inflammatory change, with mild dilatation. This is compatible with some type of inflammatory bowel disease. Large right inguinal hernia containing noninflamed fat as well as a portion of the urinary bladder. Tiny pancreatic calcifications compatible with prior pancreatitis. Cystic mass head of the pancreas 5 cm in diameter. Hepatomegaly with diffuse fatty infiltration of the liver. Small hiatal hernia. CT chest without contrast: Fibro atelectatic changes in the dependent lungs with no acute abnormalities. ASSESSMENT: 59-year-old male with past mental history of hypertension, alcohol abuse, peripheral neuropathy, diabetes mellitus type 2, GERD, BPH, erectile dysfunction who was admitted for hypotension likely secondary to dehydration due to diarrhea, rule out infectious etiology, SIRS, alcoholic hepatitis, acute kidney injury likely prerenal cause. PLAN: # C. difficile colitis, diarrhea. Resolved sepsis -2 BM overnight, WBC wnl, afebrile ;however, tachycardic still -BCx NG, GI panel pending -C/w IVFs, cLD -PO vancomycin QID x 10 days, contact precautions -GI following #Hypoglycemia likely 2/2 to decreased Po intake and acute infection, insulin use -BS 38 this AM, given juice and increased to 80's -D/rocky levemir at lower dose, restarted 01/01/20 for BS's in the 300's -Appears to be brittle currently and may have hx of brittle diabetes -On CLD -C/w ISS but decreased, FS AC/HS with CLD, advance diet to consistent carb as tolerated #Hypokalemia, acute likely 2/2 to decreased PO intake, diarrhea -Supplementing 50 mEq this AM -F/u K at 11:00 and daily in AM #Hypomagnesemia, acute likely 2/2 to decreased Po intake, diarrhea -Mag 1.2 -Given mag run x 2 today -F/u mag daily #Physical deconditioning likely 2/2 to acute and chronic illness -Per PT: likely need rehab -C/w PT/OT #Pancreatic mass, pseudocyst vs. cystic neoplasm cannot be excluded -MRI abd above -Will discuss results with GI today #Pancreatic calcifications likely 2/2 to chronic pancreatitis likely 2/2 to chronic alcohol abuse -MRI abd: tiny pancreatic calcifications in the body of the pancreas indicating chronic pancreatitis. -Monitor closely #Alcoholic hepatitis 2/2 to alcohol abuse -Hx of heavy alcohol abuse. Elevated AST/ALT, D and T Bili- all improving -F/u daily CMP, avoid hepatotoxic medications #Hyperammonemia, likely chronic -Ammonia 38--> 41. No increased mental status changes -Per GI, will hold off on treating this currently unless mental status worsens -F/u level in the AM #Hepatomegaly, fatty liver 2/2 to alcohol abuse -AST/ALT, Bili-improving -Daily CMP -US abd above #Alcohol abuse -States last drink was last week, no s/s of withdrawl this AM -CIWA protocol with ativan, thiamine, folate, MV #Peripheral neuropathy -C/w gabapentin #GERD -PPI #BPH -Prazosin #Erectile dysfunction -Will not restart tadalafil #HLD -Resume fenofibrate #DVT px -lovenox SC Resolved issues: #Hypotension likely multifactorial 2/2 to dehydration from diarrhea, medication use #Sepsis 2/2 to C. diff colitis #Acute kidney injury likely 2/2 to prerenal cause, dehydration, hypovolemia #Hyponatremia, acute and likely 2/2 to hypovolemia DISPOSITION: Admitted under inpatient status. GI following. Transfer for PCU downgrade. VS, I&O, 24H, Megan Vital Signs/I&O Vital Signs Date Time Temp Pulse Resp B/P (MAP) Pulse Ox O2 Delivery O2 Flow Rate FiO2 01/02/20 08:23 97.8 102 20 118/74 (89) 95 Room Air 01/01/20 10:00 0.0 I&O- Last 24 Hours up to 6 AM 01/02/20 06:00 Intake Total 2000 ml Output Total 1160 ml Balance 840 ml Laboratory Data 24H LABS Laboratory Tests 2 01/01/20 12:13: Bedside Glucose (Misc Panel) 273H 01/01/20 13:28: Anion Gap 10, Glomerular Filtration Rate 59.9, Calcium Level 8.3L, Magnesium Level 1.5L 01/01/20 18:23: Clostridium difficile [id number] PRESUMPTIVE NEGATIVE, Clostridium difficile Toxin (PCR) POSITIVEA 01/01/20 18:37: Bedside Glucose (Misc Panel) 344H 01/01/20 20:17: Bedside Glucose (Misc Panel) 333H 01/02/20 05:26: Immature Granulocyte % (Auto) 3.4H, Neutrophils (%) (Auto) 47.8, Lymphocytes (%) (Auto) 31.1, Monocytes (%) (Auto) 15.7H, Eosinophils (%) (Auto) 1.3, Basophils (%) (Auto) 0.7, Neutrophils # (Auto) 2.1, Lymphocytes # (Auto) 1.4L, Monocytes # (Auto) 0.7, Eosinophils # (Auto) 0.1, Basophils # (Auto) 0.0, Nucleated Red Blood Cells % (auto) 0.0, Anion Gap 4L, Glomerular Filtration Rate > 60.0, Calcium Level 7.9L, Magnesium Level 1.2L, Total Bilirubin 1.1H, Aspartate Amino Transf (AST/SGOT) 96H, Alanine Aminotransferase (ALT/SGPT) 78, Alkaline Phosphatase 150H, Total Protein 5.9L, Albumin 2.3L, Albumin/Globulin Ratio 0.6 01/02/20 07:09: Bedside Glucose (Misc Panel) 83 CBC/BMP Laboratory Tests 01/01/20 13:28 01/02/20 05:26 Microbiology Microbiology 12/31/19 Blood Culture - Preliminary, Resulted No Growth after 48 hours. All Specime... 12/31/19 Blood Culture - Preliminary, Resulted No Growth after 48 hours. All Specime... 12/31/19 Respiratory Virus Panel (PCR) (ESTEFANIA) - Final, Complete 12/31/19 Campylobacter (PCR), Received Pending 12/31/19 Clostridium difficile Toxin A&B PCR, Received Pending 12/31/19 Plesiomonas shigelloides (PCR), Received Pending 12/31/19 Salmonella (PCR)(ESTEFANIA), Received Pending 12/31/19 Vibrio Species (PCR), Received Pending 12/31/19 Vibrio Cholerae (PCR), Received Pending 12/31/19 Yersinia enterocolitica (PCR), Received Pending 12/31/19 Enteroaggregative E. coli (PCR), Received Pending 12/31/19 Enteropathogenic E. coli (PCR), Received Pending 12/31/19 Enterotoxigenic E. coli (PCR), Received Pending 12/31/19 E. coli Shiga-like Toxin (PCR), Received Pending 12/31/19 Escherichia coli 0157 (PCR), Received Pending 12/31/19 Enteroinvasive E. coli/Shigella PCR, Received Pending 12/31/19 Cryptosporidium (PCR), Received Pending 12/31/19 Cyclospora cayetanensis (PCR), Received Pending 12/31/19 Entamoeba histolytica (PCR), Received Pending 12/31/19 Giardia lamblia (PCR), Received Pending 12/31/19 Adenovirus Type F 40/41 (PCR), Received Pending 12/31/19 Astrovirus (PCR), Received Pending 12/31/19 Norovirus GI/GII (PCR), Received Pending 12/31/19 Rotavirus A (PCR), Received Pending 12/31/19 Sapovirus I/II/IV/V (PCR), Received Pending Current Medications Current Medications Medications (Trade) Dose Ordered Sig/Mary Route PRN Reason Start Time Stop Time Status Last Admin Dose Admin Aripiprazole (AbiLIFY) 5 mg QHS PO 01/01/20 21:00 01/01/20 20:21 Dextrose (Dextrose 50%) 25 ml ASDIRECTED PRN IV SEE LABEL COMMENTS 12/31/19 20:00 12/31/19 20:33 Dextrose (Dextrose 50%) 50 ml STAT STAT IV 12/31/19 18:20 12/31/19 18:22 DC 12/31/19 18:26 Dextrose/Sodium Chloride 1,000 ml @ 125 mls/hr Q8H IV 12/31/19 18:30 01/01/20 12:19 DC 01/01/20 03:15 Enoxaparin Sodium (Lovenox) 40 mg DAILY SC 01/01/20 09:00 01/02/20 08:16 Escitalopram Oxalate (Lexapro) 20 mg DAILY PO 01/02/20 09:00 01/02/20 08:14 Fenofibrate (Tricor) 145 mg QHS PO 01/01/20 21:00 01/01/20 20:22 Folic Acid (Folic Acid) 1 mg DAILY PO 12/31/19 09:00 12/31/19 18:06 DC Folic Acid (Folic Acid) 1 mg DAILY PO 01/02/20 09:00 01/02/20 08:15 Folic Acid 1 mg/ Sodium Chloride 50.2 ml @ 100.4 mls/ hr Q24H IV 01/01/20 18:00 01/01/20 18:45 DC 01/01/20 18:27 Gabapentin (Neurontin) 300 mg QAM PO 01/02/20 09:00 01/02/20 08:14 Gabapentin (Neurontin) 600 mg QHS PO 01/01/20 21:00 01/01/20 20:21 Glucagon (Glucagon) 1 mg ASDIRECTED PRN SC SEE LABEL COMMENTS 12/31/19 20:00 Glucose (Glucose) 16 GM ASDIRECTED PRN PO SEE LABEL COMMENTS 12/31/19 20:00 Home Med (Med Rec Complete!) ASDIRECTED XX 12/31/19 14:15 12/31/19 14:17 DC Insulin Detemir (Levemir Insulin) 30 units BID SC 01/01/20 21:00 01/02/20 07:22 DC 01/01/20 20:22 Insulin Human Lispro (HumaLOG INSULIN) SEE PROTOCOL TABLE AC KS 01/02/20 07:30 01/02/20 07:26 DC Insulin Human Lispro (HumaLOG INSULIN) SEE PROTOCOL TABLE AC [place] 01/02/20 07:30 Insulin Human Lispro (HumaLOG INSULIN) [facility] 01/01/20 21:00 01/02/20 07:26 DC 01/01/20 20:23 Insulin Human Lispro (HumaLOG INSULIN) [facility]OTOCOL [facility] 01/02/20 21:00 Lorazepam (Ativan) 2 mg ASDIRECTED PRN IV SEE PROTOCOL 12/31/19 18:15 01/01/20 18:45 DC Lorazepam (Ativan) 2 mg ASDIRECTED PRN PO SEE PROTOCOL 12/31/19 14:45 12/31/19 18:06 DC 12/31/19 15:55 Lorazepam (Ativan) 2 mg ASDIRECTED PRN PO SEE PROTOCOL 01/01/20 18:45 01/02/20 00:11 DC 01/01/20 22:32 Lorazepam (Ativan) 2 mg Q2HP PRN IV AGITATION 12/31/19 18:15 12/31/19 18:11 DC Lorazepam (Ativan) 2 mg Q2HP PRN IV AGITATION 01/02/20 00:15 Magnesium Sulfate/ Dextrose 1 gm/IV Miscellaneous Supplies 100 ml @ 100 mls/hr Q1H IV 01/02/20 09:00 01/02/20 10:59 DC 01/02/20 10:11 Multivitamins (Theragram-M) 1 tab DAILY PO 12/31/19 09:00 12/31/19 18:06 DC Multivitamins (Theragram-M) 1 tab DAILY PO 01/02/20 09:00 01/02/20 08:15 Pantoprazole Sodium (Protonix) 40 mg DAILY PO 01/02/20 09:00 01/02/20 08:15 Pantoprazole Sodium (Protonix) 40 mg Q24H IV 12/31/19 15:00 01/01/20 18:49 DC 01/01/20 14:05 Piperacillin Sod/ Tazobactam Sod 3.375 gm/Dextrose 50 ml @ 50 mls/hr Q6H IV 12/31/19 19:00 01/02/20 07:26 DC 01/02/20 06:42 Potassium Chloride 10 meq/ IV Miscellaneous Supplies 100 ml @ 100 mls/hr 0145,0245 IV 01/01/20 01:45 01/01/20 05:00 DC 01/01/20 03:15 Potassium Chloride 10 meq/ IV Miscellaneous Supplies 100 ml @ 100 mls/hr Q1H IV 12/31/19 20:00 12/31/19 21:59 DC 12/31/19 21:11 Potassium Chloride 10 meq/ IV Miscellaneous Supplies 100 ml @ 100 mls/hr Q1H IV 01/01/20 09:30 01/01/20 13:29 Cancel Potassium Chloride 10 meq/ IV Miscellaneous Supplies 100 ml @ 100 mls/hr Q1H IV 01/01/20 11:00 01/01/20 12:59 DC 01/01/20 12:07 Potassium Chloride 100 ml @ 100 mls/hr 0700,0800 IV 01/01/20 07:00 01/01/20 11:00 DC 01/01/20 09:04 Prazosin HCl (Minipress) 2 mg QHS PO 01/01/20 21:00 01/01/20 20:22 Sodium Chloride 1,000 ml @ 125 mls/hr Q8H IV 12/31/19 14:45 12/31/19 18:22 DC 12/31/19 15:08 Thiamine HCl (Thiamine HCl) 100 mg BID PO 12/31/19 21:00 12/31/19 18:06 DC Thiamine HCl (Thiamine HCl) 100 mg DAILY PO 01/02/20 09:00 01/02/20 08:15 Thiamine HCl (VITAMIN B1 INJection) 100 mg DAILY IM 01/01/20 09:00 01/01/20 18:45 DC 01/01/20 07:51 Vancomycin HCl (First-Vancomycin 50(Firvanq)- 250mg/5ml) 125 mg Q6H PO 01/02/20 12:00 Allergies Coded Allergies: benazepril (Verified Allergy, Severe, ANGIOEDEMA, 12/31/19) ENVIROMENTAL (Verified Allergy, Unknown, 06/28/04) Caroline Edmonds MD Jan 02, 2020 11:25
[2020-01-02] MEDS: VANCOMYCIN ORAL SOL 250MG/5ML ORAL SYRINGE PO SCH ×2 (12:16→18:12)
[2020-01-02 13:02] LABS: BLOOD UREA NITROGEN 29 MG/DL (7-18); CALCIUM LEVEL 8.1 MG/DL (8.8-10.2); CARBON DIOXIDE LEVEL 26 MEQ/L (21-32); CHLORIDE LEVEL 104 MEQ/L (98-107); CREATININE FOR GFR 0.96 MG/DL (0.70-1.30); GLOMERULAR FILTRATION RATE > 60.0 (>49); GLUCOSE, FASTING 251 MG/DL (70-100); MAGNESIUM LEVEL 1.9 MG/DL (1.8-2.4); POTASSIUM SERUM 3.7 MEQ/L (3.5-5.1); SODIUM LEVEL 137 MEQ/L (136-145)
[2020-01-02] MEDS: NS 1,000 ML IV SCH (20:27)
[2020-01-02] MEDS: FENOFIBRATE 145 MG TAB (TRICOR) PO SCH (20:29)
[2020-01-03] VITALS: BP 169/95
[2020-01-03] MEDS: VANCOMYCIN ORAL SOL 250MG/5ML ORAL SYRINGE PO SCH ×5 (00:22→23:33)
[2020-01-03 04:00] VITALS: BP 144/93
[2020-01-03] MEDS: NS 1,000 ML IV SCH (05:43)
[2020-01-03 06:24] LABS: BASO # 0.1 10^3/uL (0.0-0.2); BASO % 1.3 % (0.0-1.0); EOS % 0.9 % (0.0-3.0); HEMOGLOBIN 10.1 g/dl (13.5-17.5); LYMPH # 1.3 10^3/uL (1.5-5.0); LYMPH % 29.1 % (24.0-44.0); MEAN CORPUSCULAR HEMOGLOBIN 31.9 pg (27.0-33.0); MEAN CORPUSCULAR HGB CONC 32.6 g/dl (32.0-36.5); MEAN CORPUSCULAR VOLUME 97.8 fl (80.0-96.0); MONO % 22.2 % (0.0-5.0); NEUTROPHILS # 1.7 10^3/uL (1.5-8.5); NEUTROPHILS % 36.8 % (36.0-66.0); PLATELET COUNT, AUTOMATED 161 10^3/uL (150-450); RED BLOOD COUNT 3.17 10^6/uL (4.30-6.10); WHITE BLOOD COUNT 4.5 10^3/uL (4.0-10.0)
[2020-01-03 06:42] LABS: ALBUMIN 2.4 GM/DL (3.2-5.2); ALT/SGPT 69 U/L (12-78); BILIRUBIN,TOTAL 0.9 MG/DL (0.2-1.0); BLOOD UREA NITROGEN 20 MG/DL (7-18); CALCIUM LEVEL 7.4 MG/DL (8.8-10.2); CARBON DIOXIDE LEVEL 23 MEQ/L (21-32); CHLORIDE LEVEL 106 MEQ/L (98-107); CREATININE FOR GFR 0.67 MG/DL (0.70-1.30); GLOMERULAR FILTRATION RATE > 60.0 (>49); GLUCOSE, FASTING 203 MG/DL (70-100); MAGNESIUM LEVEL 1.2 MG/DL (1.8-2.4); POTASSIUM SERUM 3.6 MEQ/L (3.5-5.1); SODIUM LEVEL 141 MEQ/L (136-145); TOTAL PROTEIN 5.6 GM/DL (6.4-8.2)
[2020-01-03 08:00] VITALS: BP 158/82
[2020-01-03] MEDS: MAG SULF 1GM/100ML (MAG RUN) 1 GM in IV 1 EA IV SCH ×2 (08:55→10:47)
[2020-01-03] MEDS: HumaLOG INSULIN (NovoLOG) PER UNIT SC SCH ×4 (08:55→20:27)
[2020-01-03] MEDS: ESCITALOPRAM OXALATE 10 MG TAB (LEXAPRO) PO SCH (08:55)
[2020-01-03] MEDS: **hydrALAZINE** 50 MG TAB PO SCH ×2 (08:56→20:23)
[2020-01-03] MEDS: THIAMINE 100 MG TAB PO SCH (08:56)
[2020-01-03] MEDS: FOLIC ACID 1 MG TAB PO SCH (08:56)
[2020-01-03] MEDS: MULTIVITAMINS/MINERALS THERAP 1 TAB PO SCH (08:56)
[2020-01-03] MEDS: ENOXAPARIN 40MG/0.4ML SYRINGE (J1650 PER 10MG) SC SCH (08:57)
[2020-01-03] MEDS: GABAPENTIN 300 MG CAP PO SCH ×2 (08:57→20:23)
[2020-01-03] MEDS: amLODIPine 5 MG TAB PO SCH (08:57)
[2020-01-03] MEDS: PANTOPRAZOLE 40MG TAB (PROTONIX) PO SCH (08:57)
--- NOTE | 2020-01-03 10:59 | IPNPDOC ---
Date Seen The patient was seen on 01/03/20. Progress Note SUBJECTIVE: BS 83-245, on ISS. 2 BM over 24 hours. Downgraded to med surg today. Denies chest pain, shortness of breath, n/v, fevers, chills, abdominal pain. OBJECTIVE: PHYSICAL EXAMINATION: VS: please see below CONSTITUTIONAL: No acute distress, sitting up at bedside chair, AAO x 3 EYES: PERRLA, EOM intact HENT, MOUTH: Normocephalic, atraumatic, moist mucous membranes NECK: SUPPLE, no JVD, no lymphadenopathy, no carotid bruit CV: Regular rate and rhythm, S1S2 normal, no murmurs/rubs/gallops RESPIRATORY: Clear to auscultation bilaterally, no rales/rhonchi/wheezes GI: obese abd, BS positive in 4 quadrants, soft, nontender, nondistended, no rebound or guarding, no organomegaly : Deferred MUSCULOSKELETAL: Normal ROM. No cyanosis, clubbing, swelling, joint deformity, extremity edema INTEGUMENTARY: Intact, no rashes, no lesions, no erythema NEUROLOGIC: Cranial Nerves II-XII are intact, no focal deficits PSYCHIATRIC: Flat affect LABORATORY/MICROBIOLOGY: Blood cultures x 2 sets: NG at 24 hours. GI panel: pending C. diff PCR: positive IMAGING: MRI abd 01/01/20: Cystic mass anterior head of pancreas which measures 6.2 x 3.7 cm. The wall is mildly irregular and mildly enhances. There is mild dilatation of the distal pancreatic duct. Recent CT exam showed tiny pancreatic calcifications in the body of the pancreas indicating chronic pancreatitis. This cystic mass could possibly represent a benign pseudocyst. However cystic neoplasm needs to be excluded. US abd: The gallbladder appears unremarkable, with no stones identified. The sonographic Hooper's sign is reported to be (-). The CBD is mildly prominent (5-6 mm diameter). No ductal stone is seen. Fatty liver infiltration. Indeterminate hypoechoic (cystic) mass at the pancreatic head / proximal pancreatic body region (also seen on recent CT scan) (4.6 cm avg. size). A pancreatic cystic mass of this size, in a patient of this age, usually warrants further evaluation. Can consider: endoscopic ultrasound; fine needle aspiration; MRI scan; enhanced CT scan with pancreas protocol. Consultation with GI and/or surgical service can also be considered initially, to help in further diagnostic and management plan. CT abd/pelvis: There is a long segment of distal ileum (not terminal ileum) which demonstrates wall thickening and surrounding inflammatory change, with mild dilatation. This is compatible with some type of inflammatory bowel disease. Large right inguinal hernia containing noninflamed fat as well as a portion of the urinary bladder. Tiny pancreatic calcifications compatible with prior pancreatitis. Cystic mass head of the pancreas 5 cm in diameter. Hepatomegaly with diffuse fatty infiltration of the liver. Small hiatal hernia. CT chest without contrast: Fibro atelectatic changes in the dependent lungs with no acute abnormalities. ASSESSMENT: 59-year-old male with past mental history of hypertension, alcohol abuse, peripheral neuropathy, diabetes mellitus type 2, GERD, BPH, erectile dysfunction who was admitted for hypotension likely secondary to dehydration due to diarrhea, rule out infectious etiology, SIRS, alcoholic hepatitis, acute kidney injury likely prerenal cause. PLAN: # C. difficile colitis, diarrhea. Resolved sepsis -2 BM overnight, WBC wnl, afebrile -BCx NG, GI panel pending -C/w IVFs, advanced diet this AM -PO vancomycin QID x 9 days, contact precautions -GI following #Hypoglycemia likely 2/2 to decreased Po intake and acute infection, insulin use- resolved -BS 83-245 -D/rocky levemir at lower dose, restarted 01/01/20 for BS's in the 300's -Appears to be brittle currently and may have hx of brittle diabetes -Started consistent carb diet and can incorporate long-acting insulin if blood sugar remains elevated -Switched to normal ISS, FS AC/HS with CLD, advance diet #Hypomagnesemia, acute likely 2/2 to decreased Po intake, diarrhea -Mag 1.2 -Given mag run x 2 again today -F/u mag daily #Hyperammonemia, likely chronic -Ammonia 41--> 71. No increased mental status changes -Per GI, repeat ammonia this evening. If worsened, start lactulose daily, goal is 2 BM daily. Careful with current diagnosis of c. diff and diarrhea #Physical deconditioning likely 2/2 to acute and chronic illness -C/w PT/OT #Pancreatic mass, pseudocyst vs. cystic neoplasm cannot be excluded -MRI abd above -Will discuss results with GI #Pancreatic calcifications likely 2/2 to chronic pancreatitis likely 2/2 to chronic alcohol abuse -MRI abd: tiny pancreatic calcifications in the body of the pancreas indicating chronic pancreatitis. -Monitor closely #Alcoholic hepatitis 2/2 to alcohol abuse -Hx of heavy alcohol abuse. Elevated AST/ALT, D and T Bili- all improving -F/u daily CMP, avoid hepatotoxic medications #Hepatomegaly, fatty liver 2/2 to alcohol abuse -AST/ALT, Bili-improving -Daily CMP -US abd above #Alcohol abuse -States last drink was last week, no s/s of withdrawl this AM -[facility] protocol with ativan, thiamine, folate, MV #Peripheral neuropathy -C/w gabapentin #GERD -PPI #BPH -Prazosin #Erectile dysfunction -Will not restart tadalafil #HLD -Resume fenofibrate #DVT px -lovenox SC Resolved issues: #Hypotension likely multifactorial 2/2 to dehydration from diarrhea, medication use #Sepsis 2/2 to C. diff colitis #Acute kidney injury likely 2/2 to prerenal cause, dehydration, hypovolemia #Hyponatremia, acute and likely 2/2 to hypovolemia #Hypokalemia, acute likely 2/2 to decreased PO intake, diarrhea DISPOSITION: Admitted under inpatient status. GI following. Transfer med/surg today, off tele VS, I&O, 24H, Fishbone Vital Signs/I&O Vital Signs Date Time Temp Pulse Resp B/P (MAP) Pulse Ox O2 Delivery O2 Flow Rate FiO2 01/03/20 08:57 89 01/03/20 08:56 158/82 01/03/20 04:00 98.7 20 98 Room Air 01/01/20 10:00 0.0 I&O- Last 24 Hours up to 6 AM 01/03/20 06:00 Intake Total 1650 ml Output Total 1025 ml Balance 625 ml Laboratory Data 24H LABS Laboratory Tests 2 01/02/20 12:08: Bedside Glucose (Misc Panel) 345H 01/02/20 12:09: Anion Gap 7L, Glomerular Filtration Rate > 60.0, Calcium Level 8.1L, Magnesium Level 1.9 01/02/20 16:39: Bedside Glucose (Misc Panel) 129H 01/02/20 20:11: Bedside Glucose (Misc Panel) 252H 01/03/20 05:56: Immature Granulocyte % (Auto) 9.7H, Neutrophils (%) (Auto) 36.8, Lymphocytes (%) (Auto) 29.1, Monocytes (%) (Auto) 22.2H, Eosinophils (%) (Auto) 0.9, Basophils (%) (Auto) 1.3H, Neutrophils # (Auto) 1.7, Lymphocytes # (Auto) 1.3L, Monocytes # (Auto) 1.0H, Eosinophils # (Auto) 0.0, Basophils # (Auto) 0.1, Nucleated Red Blood Cells % (auto) 0.0, Anion Gap 12, Glomerular Filtration Rate > 60.0, Calcium Level 7.4L, Magnesium Level 1.2L, Total Bilirubin 0.9, Aspartate Amino Transf (AST/SGOT) 73H, Alanine Aminotransferase (ALT/SGPT) 69, Alkaline Phosphatase 150H, Ammonia 71H, Total Protein 5.6L, Albumin 2.4L, Albumin/Globulin Ratio 0.8 CBC/BMP Laboratory Tests 01/02/20 12:09 01/03/20 05:56 Microbiology Microbiology 12/31/19 Blood Culture - Preliminary, Resulted No Growth after 72 hours. All specime... 12/31/19 Blood Culture - Preliminary, Resulted No Growth after 72 hours. All specime... 12/31/19 Respiratory Virus Panel (PCR) (ESTEFANIA) - Final, Complete 12/31/19 Campylobacter (PCR), Received Pending 12/31/19 Clostridium difficile Toxin A&B PCR, Received Pending 12/31/19 Plesiomonas shigelloides (PCR), Received Pending 12/31/19 Salmonella (PCR)(ESTEFANIA), Received Pending 12/31/19 Vibrio Species (PCR), Received Pending 12/31/19 Vibrio Cholerae (PCR), Received Pending 12/31/19 Yersinia enterocolitica (PCR), Received Pending 12/31/19 Enteroaggregative E. coli (PCR), Received Pending 12/31/19 Enteropathogenic E. coli (PCR), Received Pending 12/31/19 Enterotoxigenic E. coli (PCR), Received Pending 12/31/19 E. coli Shiga-like Toxin (PCR), Received Pending 12/31/19 Escherichia coli 0157 (PCR), Received Pending 12/31/19 Enteroinvasive E. coli/Shigella PCR, Received Pending 12/31/19 Cryptosporidium (PCR), Received Pending 12/31/19 Cyclospora cayetanensis (PCR), Received Pending 12/31/19 Entamoeba histolytica (PCR), Received Pending 12/31/19 Giardia lamblia (PCR), Received Pending 12/31/19 Adenovirus Type F 40/41 (PCR), Received Pending 12/31/19 Astrovirus (PCR), Received Pending 12/31/19 Norovirus GI/GII (PCR), Received Pending 12/31/19 Rotavirus A (PCR), Received Pending 12/31/19 Sapovirus I/II/IV/V (PCR), Received Pending Current Medications Current Medications Medications (Trade) Dose Ordered Sig/Mary Route PRN Reason Start Time Stop Time Status Last Admin Dose Admin Amlodipine Besylate (Norvasc) 5 mg DAILY PO 01/03/20 09:00 01/03/20 08:57 Aripiprazole (AbiLIFY) 5 mg QHS PO 01/01/20 21:00 01/02/20 20:28 Dextrose (Dextrose 50%) 25 ml ASDIRECTED PRN IV SEE LABEL COMMENTS 12/31/19 20:00 12/31/19 20:33 Dextrose (Dextrose 50%) 50 ml STAT STAT IV 12/31/19 18:20 12/31/19 18:22 DC 12/31/19 18:26 Dextrose/Sodium Chloride 1,000 ml @ 125 mls/hr Q8H IV 12/31/19 18:30 01/01/20 12:19 DC 01/01/20 03:15 Enoxaparin Sodium (Lovenox) 40 mg DAILY SC 01/01/20 09:00 01/03/20 08:57 Escitalopram Oxalate (Lexapro) 20 mg DAILY PO 01/02/20 09:00 01/03/20 08:55 Fenofibrate (Tricor) 145 mg QHS PO 01/01/20 21:00 01/02/20 20:29 Folic Acid (Folic Acid) 1 mg DAILY PO 12/31/19 09:00 12/31/19 18:06 DC Folic Acid (Folic Acid) 1 mg DAILY PO 01/02/20 09:00 01/03/20 08:56 Folic Acid 1 mg/ Sodium Chloride 50.2 ml @ 100.4 mls/ hr Q24H IV 01/01/20 18:00 01/01/20 18:45 DC 01/01/20 18:27 Gabapentin (Neurontin) 300 mg QAM PO 01/02/20 09:00 01/03/20 08:57 Gabapentin (Neurontin) 600 mg QHS PO 01/01/20 21:00 01/02/20 20:28 Glucagon (Glucagon) 1 mg ASDIRECTED PRN SC SEE LABEL COMMENTS 12/31/19 20:00 Glucose (Glucose) 16 GM ASDIRECTED PRN PO SEE LABEL COMMENTS 12/31/19 20:00 Home Med (Med Rec Complete!) ASDIRECTED XX 12/31/19 14:15 12/31/19 14:17 DC Hydralazine HCl (Apresoline) 100 mg BID PO 01/03/20 09:00 01/03/20 08:56 Insulin Detemir (Levemir Insulin) 30 units BID SC 01/01/20 21:00 01/02/20 07:22 DC 01/01/20 20:22 Insulin Human Lispro (HumaLOG INSULIN) SEE PROTOCOL TABLE AC TX 01/02/20 07:30 01/02/20 07:26 DC Insulin Human Lispro (HumaLOG INSULIN) SEE PROTOCOL TABLE AC TX 01/02/20 07:30 01/03/20 08:55 Insulin Human Lispro (HumaLOG INSULIN) [facility]OTOCOL [facility] 01/01/20 21:00 01/02/20 07:26 DC 01/01/20 20:23 Insulin Human Lispro (HumaLOG INSULIN) SEE PROTOCOL [facility] 01/02/20 21:00 Lorazepam (Ativan) 2 mg ASDIRECTED PRN IV SEE PROTOCOL 12/31/19 18:15 01/01/20 18:45 DC Lorazepam (Ativan) 2 mg ASDIRECTED PRN PO SEE PROTOCOL 12/31/19 14:45 12/31/19 18:06 DC 12/31/19 15:55 Lorazepam (Ativan) 2 mg ASDIRECTED PRN PO SEE PROTOCOL 01/01/20 18:45 01/02/20 00:11 DC 01/01/20 22:32 Lorazepam (Ativan) 2 mg Q2HP PRN IV AGITATION 12/31/19 18:15 12/31/19 18:11 DC Lorazepam (Ativan) 2 mg Q2HP PRN IV AGITATION 01/02/20 00:15 Magnesium Oxide (Mag-Ox) 400 mg BID PO 01/04/20 09:00 Magnesium Sulfate/ Dextrose 1 gm/IV Miscellaneous Supplies 100 ml @ 100 mls/hr Q1H IV 01/02/20 09:00 01/02/20 10:59 DC 01/02/20 10:11 Magnesium Sulfate/ Dextrose 1 gm/IV Miscellaneous Supplies 100 ml @ 100 mls/hr Q1H IV 01/03/20 08:00 01/03/20 09:59 DC 01/03/20 10:47 Multivitamins (Theragram-M) 1 tab DAILY PO 12/31/19 09:00 12/31/19 18:06 DC Multivitamins (Theragram-M) 1 tab DAILY PO 01/02/20 09:00 01/03/20 08:56 Pantoprazole Sodium (Protonix) 40 mg DAILY PO 01/02/20 09:00 01/03/20 08:57 Pantoprazole Sodium (Protonix) 40 mg Q24H IV 12/31/19 15:00 01/01/20 18:49 DC 01/01/20 14:05 Piperacillin Sod/ Tazobactam Sod 3.375 gm/Dextrose 50 ml @ 50 mls/hr Q6H IV 12/31/19 19:00 01/02/20 07:26 DC 01/02/20 06:42 Potassium Chloride 10 meq/ IV Miscellaneous Supplies 100 ml @ 100 mls/hr 0145,0245 IV 01/01/20 01:45 01/01/20 05:00 DC 01/01/20 03:15 Potassium Chloride 10 meq/ IV Miscellaneous Supplies 100 ml @ 100 mls/hr Q1H IV 12/31/19 20:00 12/31/19 21:59 DC 12/31/19 21:11 Potassium Chloride 10 meq/ IV Miscellaneous Supplies 100 ml @ 100 mls/hr Q1H IV 01/01/20 09:30 01/01/20 13:29 Cancel Potassium Chloride 10 meq/ IV Miscellaneous Supplies 100 ml @ 100 mls/hr Q1H IV 01/01/20 11:00 01/01/20 12:59 DC 01/01/20 12:07 Potassium Chloride 100 ml @ 100 mls/hr 0700,0800 IV 01/01/20 07:00 01/01/20 11:00 DC 01/01/20 09:04 Prazosin HCl (Minipress) 2 mg QHS PO 01/01/20 21:00 01/02/20 19:20 DC 01/01/20 20:22 Sodium Chloride 1,000 ml @ 100 mls/hr Q10H IV 01/02/20 19:30 01/03/20 05:43 Sodium Chloride 1,000 ml @ 125 mls/hr Q8H IV 12/31/19 14:45 12/31/19 18:22 DC 12/31/19 15:08 Thiamine HCl (Thiamine HCl) 100 mg BID PO 12/31/19 21:00 12/31/19 18:06 DC Thiamine HCl (Thiamine HCl) 100 mg DAILY PO 01/02/20 09:00 01/03/20 08:56 Thiamine HCl (VITAMIN B1 INJection) 100 mg DAILY IM 01/01/20 09:00 01/01/20 18:45 DC 01/01/20 07:51 Vancomycin HCl (First-Vancomycin 50(Firvanq)- 250mg/5ml) 125 mg Q6H PO 01/02/20 12:00 01/03/20 05:43 Allergies Coded Allergies: benazepril (Verified Allergy, Severe, ANGIOEDEMA, 12/31/19) ENVIROMENTAL (Verified Allergy, Unknown, 06/28/04) Caroline Edmonds MD Jan 03, 2020 10:59
[2020-01-03 15:38] VITALS: BP 140/76
[2020-01-03 20:00] VITALS: BP 150/72
[2020-01-03] MEDS: FENOFIBRATE 145 MG TAB (TRICOR) PO SCH (20:23)
[2020-01-04 05:27] VITALS: BP 150/92
[2020-01-04] MEDS: VANCOMYCIN ORAL SOL 250MG/5ML ORAL SYRINGE PO SCH ×4 (05:28→23:53)
[2020-01-04 05:59] LABS: BASO # 0.1 10^3/uL (0.0-0.2); EOS % 0.3 % (0.0-3.0); HEMATOCRIT 33.7 % (42.0-52.0); HEMOGLOBIN 10.9 g/dl (13.5-17.5); LYMPH # 1.8 10^3/uL (1.5-5.0); LYMPH % 29.7 % (24.0-44.0); MEAN CORPUSCULAR HEMOGLOBIN 31.8 pg (27.0-33.0); MEAN CORPUSCULAR HGB CONC 32.3 g/dl (32.0-36.5); MEAN CORPUSCULAR VOLUME 98.3 fl (80.0-96.0); MONO # 1.5 10^3/uL (0.0-0.8); MONO % 24.1 % (0.0-5.0); NEUTROPHILS # 2.4 10^3/uL (1.5-8.5); PLATELET COUNT, AUTOMATED 215 10^3/uL (150-450); RED BLOOD COUNT 3.43 10^6/uL (4.30-6.10); WHITE BLOOD COUNT 6.2 10^3/uL (4.0-10.0)
[2020-01-04 06:28] LABS: ALBUMIN 2.5 GM/DL (3.2-5.2); ALT/SGPT 59 U/L (12-78); BLOOD UREA NITROGEN 15 MG/DL (7-18); CALCIUM LEVEL 7.7 MG/DL (8.8-10.2); CARBON DIOXIDE LEVEL 18 MEQ/L (21-32); CHLORIDE LEVEL 104 MEQ/L (98-107); CREATININE FOR GFR 0.62 MG/DL (0.70-1.30); GLOMERULAR FILTRATION RATE > 60.0 (>49); GLUCOSE, FASTING 191 MG/DL (70-100); MAGNESIUM LEVEL 1.3 MG/DL (1.8-2.4); POTASSIUM SERUM 3.4 MEQ/L (3.5-5.1); SODIUM LEVEL 140 MEQ/L (136-145); TOTAL PROTEIN 5.8 GM/DL (6.4-8.2)
[2020-01-04] MEDS: ESCITALOPRAM OXALATE 10 MG TAB (LEXAPRO) PO SCH (07:28)
[2020-01-04] MEDS: HumaLOG INSULIN (NovoLOG) PER UNIT SC SCH ×4 (07:28→20:07)
[2020-01-04] MEDS: GABAPENTIN 300 MG CAP PO SCH ×2 (07:28→20:05)
[2020-01-04] MEDS: **hydrALAZINE** 50 MG TAB PO SCH ×2 (07:29→20:06)
[2020-01-04] MEDS: THIAMINE 100 MG TAB PO SCH (07:29)
[2020-01-04] MEDS: amLODIPine 5 MG TAB PO SCH (07:30)
[2020-01-04] MEDS: FOLIC ACID 1 MG TAB PO SCH (07:30)
[2020-01-04] MEDS: MULTIVITAMINS/MINERALS THERAP 1 TAB PO SCH (07:30)
[2020-01-04] MEDS: PANTOPRAZOLE 40MG TAB (PROTONIX) PO SCH (07:30)
[2020-01-04] MEDS: ENOXAPARIN 40MG/0.4ML SYRINGE (J1650 PER 10MG) SC SCH (07:31)
[2020-01-04 08:00] VITALS: BP 161/94
[2020-01-04] MEDS ORDERED: MAGNESIUM OXIDE 400 MG TAB (MAG-OX) PO SCH (09:00)
[2020-01-04] MEDS ORDERED: MAG SULF 1GM/100ML (MAG RUN) 1 GM in IV 1 EA IV ONE (09:00)
[2020-01-04] MEDS: MAGNESIUM OXIDE 400 MG TAB (MAG-OX) PO SCH ×3 (09:09→20:05)
[2020-01-04] MEDS: POTASSIUM CHLORIDE 10 MEQ SR TABLET PO SCH (09:12)
[2020-01-04 09:42] VITALS: BP 133/86
--- NOTE | 2020-01-04 12:38 | IPNPDOC ---
Date Seen The patient was seen on 01/04/20. Progress Note SUBJECTIVE: BS 184-266, on ISS. Denies chest pain, shortness of breath, n/v, fevers, chills, abdominal pain. OBJECTIVE: PHYSICAL EXAMINATION: VS: please see below CONSTITUTIONAL: No acute distress, sitting up in bed, AAO x 3 EYES: PERRLA, EOM intact HENT, MOUTH: Normocephalic, atraumatic, moist mucous membranes NECK: SUPPLE, no JVD, no lymphadenopathy, no carotid bruit CV: Regular rate and rhythm, S1S2 normal, no murmurs/rubs/gallops RESPIRATORY: Clear to auscultation bilaterally, no rales/rhonchi/wheezes GI: obese abd, BS positive in 4 quadrants, soft, nontender, nondistended, no rebound or guarding, no organomegaly : Deferred MUSCULOSKELETAL: Normal ROM. No cyanosis, clubbing, swelling, joint deformity, extremity edema INTEGUMENTARY: Intact, no rashes, no lesions, no erythema NEUROLOGIC: Cranial Nerves II-XII are intact, no focal deficits PSYCHIATRIC: Flat affect LABORATORY/MICROBIOLOGY: Blood cultures x 2 sets: NG at 24 hours. GI panel: pending C. diff PCR: positive IMAGING: MRI abd 01/01/20: Cystic mass anterior head of pancreas which measures 6.2 x 3.7 cm. The wall is mildly irregular and mildly enhances. There is mild dilatation of the distal pancreatic duct. Recent CT exam showed tiny pancreatic calcifications in the body of the pancreas indicating chronic pancreatitis. This cystic mass could possibly represent a benign pseudocyst. However cystic neoplasm needs to be excluded. US abd: The gallbladder appears unremarkable, with no stones identified. The sonographic Hooper's sign is reported to be (-). The CBD is mildly prominent (5-6 mm diameter). No ductal stone is seen. Fatty liver infiltration. Indeterminate hypoechoic (cystic) mass at the pancreatic head / proximal pancreatic body region (also seen on recent CT scan) (4.6 cm avg. size). A pancreatic cystic mass of this size, in a patient of this age, usually warrants further evaluation. Can consider: endoscopic ultrasound; fine needle aspiration; MRI scan; enhanced CT scan with pancreas protocol. Consultation with GI and/or surgical service can also be considered initially, to help in further diagnostic and management plan. CT abd/pelvis: There is a long segment of distal ileum (not terminal ileum) which demonstrates wall thickening and surrounding inflammatory change, with mild dilatation. This is compatible with some type of inflammatory bowel disease. Large right inguinal hernia containing noninflamed fat as well as a portion of the urinary bladder. Tiny pancreatic calcifications compatible with prior pancreatitis. Cystic mass head of the pancreas 5 cm in diameter. Hepatomegaly with diffuse fatty infiltration of the liver. Small hiatal hernia. CT chest without contrast: Fibro atelectatic changes in the dependent lungs with no acute abnormalities. ASSESSMENT: 59-year-old male with past mental history of hypertension, alcohol abuse, peripheral neuropathy, diabetes mellitus type 2, GERD, BPH, erectile dysfunction who was admitted for hypotension likely secondary to dehydration due to diarrhea, rule out infectious etiology, SIRS, alcoholic hepatitis, acute kidney injury likely prerenal cause. PLAN: # C. difficile colitis, diarrhea. Resolved sepsis -4 BM overnight- more than day prior, WBC wnl, afebrile -Micro above -Tolerating consistent carb diet -PO vancomycin QID x 8 days, contact precautions -GI following #DM type II -BS improving, no episodes of hypoglycemia in 24 hours -Appears to be brittle currently and may have hx of brittle diabetes -C/w consistent carb diet and can incorporate long-acting insulin if blood sugar remains elevated 01/05/20 -C/w ISS, FS AC/HS #Hypomagnesemia, acute likely 2/2 to decreased Po intake, diarrhea -Mag 1.3, s/p mag run x 2 01/03/20 -Given mag run x 1 again today, increased standing dose magnesium to 400 mg PO TID -F/u mag daily #Hyperammonemia, likely chronic -Ammonia remains elevated at 68 but no mental status changes -Now that patient is eating, would have started lactulose daily ; however, patient had increase in BM 01/03/20 so do not wish to precipitate more diarrhea. Will hold off another day. Goal would be 2 BM a day with lactulose, which patient has already met. -F/u AM ammonia level. #Hypokalemia, acute likely 2/2 to decreased PO intake, diarrhea -K 3.4 -Started KCL daily today -F/u AM labs #Physical deconditioning likely 2/2 to acute and chronic illness -C/w PT/OT after weekend #Pancreatic mass, pseudocyst vs. cystic neoplasm cannot be excluded -MRI abd above -Will discuss what to do going forward with GI #Pancreatic calcifications likely 2/2 to chronic pancreatitis likely 2/2 to chronic alcohol abuse -MRI abd: tiny pancreatic calcifications in the body of the pancreas indicating chronic pancreatitis. -Monitor closely #Alcoholic hepatitis 2/2 to alcohol abuse -Hx of heavy alcohol abuse. Elevated AST/ALT, D and T Bili- all improving -F/u daily CMP, avoid hepatotoxic medications #Hepatomegaly, fatty liver 2/2 to alcohol abuse -AST/ALT, Bili-improving -Daily CMP -US abd above #HTN -BP 160's this AM -C/w hydralazine, BB, CCB. Other home medication include losartan, verapamil which can be incorporated over time also if needed #Alcohol abuse -States last drink was last week, no s/s of withdrawl this AM -CIWA protocol stopped. #Peripheral neuropathy -C/w gabapentin #GERD -PPI #BPH -Prazosin #Erectile dysfunction -Will not restart tadalafil #HLD -C/w fenofibrate #DVT px -lovenox SC Resolved issues: #Hypotension likely multifactorial 2/2 to dehydration from diarrhea, medication use #Sepsis 2/2 to C. diff colitis #Acute kidney injury likely 2/2 to prerenal cause, dehydration, hypovolemia #Hyponatremia, acute and likely 2/2 to hypovolemia #Hypoglycemia likely 2/2 to decreased Po intake and acute infection, insulin use DISPOSITION: Admitted under inpatient status. GI following. Transfer med/surg today. Plan is hopeful for home when cleared by PT/OT and medicine VS, I&O, 24H, Fishbone Vital Signs/I&O Vital Signs Date Time Temp Pulse Resp B/P (MAP) Pulse Ox O2 Delivery O2 Flow Rate FiO2 01/04/20 09:42 97.2 105 18 133/86 (102) 98 Room Air 01/01/20 10:00 0.0 I&O- Last 24 Hours up to 6 AM 01/04/20 06:00 Intake Total 1840 ml Output Total 850 ml Balance 990 ml Laboratory Data 24H LABS Laboratory Tests 2 01/03/20 16:08: Ammonia 44H 01/03/20 16:54: Bedside Glucose (Misc Panel) 266H 01/03/20 19:57: Bedside Glucose (Misc Panel) 184H 01/04/20 05:48: Ammonia 68H, Immature Granulocyte % (Auto) 6.9H, Neutrophils (%) (Auto) 38.0, Lymphocytes (%) (Auto) 29.7, Monocytes (%) (Auto) 24.1H, Eosinophils (%) (Auto) 0.3, Basophils (%) (Auto) 1.0, Neutrophils # (Auto) 2.4, Lymphocytes # (Auto) 1.8, Monocytes # (Auto) 1.5H, Eosinophils # (Auto) 0.0, Basophils # (Auto) 0.1, Nucleated Red Blood Cells % (auto) 0.0, Anion Gap 18H, Glomerular Filtration Rate > 60.0, Calcium Level 7.7L, Magnesium Level 1.3L, Total Bilirubin 1.0, Aspartate Amino Transf (AST/SGOT) 52H, Alanine Aminotransferase (ALT/SGPT) 59, Alkaline Phosphatase 145H, Total Protein 5.8L, Albumin 2.5L, Albumin/Globulin Ratio 0.8 01/04/20 07:16: Bedside Glucose (Misc Panel) 186H 01/04/20 11:49: Bedside Glucose (Misc Panel) 193H CBC/BMP Laboratory Tests 01/04/20 05:48 Microbiology Microbiology 12/31/19 Blood Culture - Preliminary, Resulted No Growth after 72 hours. All specime... 12/31/19 Blood Culture - Preliminary, Resulted No Growth after 72 hours. All specime... 12/31/19 Respiratory Virus Panel (PCR) (ESTEFANIA) - Final, Complete 12/31/19 Campylobacter (PCR) - Final, Complete 12/31/19 Clostridium difficile Toxin A&B PCR - Final, Complete 12/31/19 Plesiomonas shigelloides (PCR) - Final, Complete 12/31/19 Salmonella (PCR)(ESTEFANIA) - Final, Complete 12/31/19 Vibrio Species (PCR) - Final, Complete 12/31/19 Vibrio Cholerae (PCR) - Final, Complete 12/31/19 Yersinia enterocolitica (PCR) - Final, Complete 12/31/19 Enteroaggregative E. coli (PCR) - Final, Complete 12/31/19 Enteropathogenic E. coli (PCR) - Final, Complete 12/31/19 Enterotoxigenic E. coli (PCR) - Final, Complete 12/31/19 E. coli Shiga-like Toxin (PCR) - Final, Complete 12/31/19 Escherichia coli 0157 (PCR) - Final, Complete 12/31/19 Enteroinvasive E. coli/Shigella PCR - Final, Complete 12/31/19 Cryptosporidium (PCR) - Final, Complete 12/31/19 Cyclospora cayetanensis (PCR) - Final, Complete 12/31/19 Entamoeba histolytica (PCR) - Final, Complete 12/31/19 Giardia lamblia (PCR) - Final, Complete 12/31/19 Adenovirus Type F 40/41 (PCR) - Final, Complete 12/31/19 Astrovirus (PCR) - Final, Complete 12/31/19 Norovirus GI/GII (PCR) - Final, Complete 12/31/19 Rotavirus A (PCR) - Final, Complete 12/31/19 Sapovirus I/II/IV/V (PCR) - Final, Complete Current Medications Current Medications Medications (Trade) Dose Ordered Sig/Mary Route PRN Reason Start Time Stop Time Status Last Admin Dose Admin Amlodipine Besylate (Norvasc) 5 mg DAILY PO 01/03/20 09:00 01/04/20 07:30 Aripiprazole (AbiLIFY) 5 mg QHS PO 01/01/20 21:00 01/03/20 20:23 Dextrose (Dextrose 50%) 25 ml ASDIRECTED PRN IV SEE LABEL COMMENTS 12/31/19 20:00 12/31/19 20:33 Dextrose (Dextrose 50%) 50 ml STAT STAT IV 12/31/19 18:20 12/31/19 18:22 DC 12/31/19 18:26 Dextrose/Sodium Chloride 1,000 ml @ 125 mls/hr Q8H IV 12/31/19 18:30 01/01/20 12:19 DC 01/01/20 03:15 Enoxaparin Sodium (Lovenox) 40 mg DAILY SC 01/01/20 09:00 01/04/20 07:31 Escitalopram Oxalate (Lexapro) 20 mg DAILY PO 01/02/20 09:00 01/04/20 07:28 Fenofibrate (Tricor) 145 mg QHS PO 01/01/20 21:00 01/03/20 20:23 Folic Acid (Folic Acid) 1 mg DAILY PO 12/31/19 09:00 12/31/19 18:06 DC Folic Acid (Folic Acid) 1 mg DAILY PO 01/02/20 09:00 01/04/20 07:30 Folic Acid 1 mg/ Sodium Chloride 50.2 ml @ 100.4 mls/ hr Q24H IV 01/01/20 18:00 01/01/20 18:45 DC 01/01/20 18:27 Gabapentin (Neurontin) 300 mg QAM PO 01/02/20 09:00 01/04/20 07:28 Gabapentin (Neurontin) 600 mg QHS PO 01/01/20 21:00 01/03/20 20:23 Glucagon (Glucagon) 1 mg ASDIRECTED PRN SC SEE LABEL COMMENTS 12/31/19 20:00 Glucose (Glucose) 16 GM ASDIRECTED PRN PO SEE LABEL COMMENTS 12/31/19 20:00 Home Med (Med Rec Complete!) ASDIRECTED XX 12/31/19 14:15 12/31/19 14:17 DC Hydralazine HCl (Apresoline) 100 mg BID PO 01/03/20 09:00 01/04/20 07:29 Insulin Detemir (Levemir Insulin) 30 units BID SC 01/01/20 21:00 01/02/20 07:22 DC 01/01/20 20:22 Insulin Human Lispro (HumaLOG INSULIN) SEE PROTOCOL TABLE AC [place] 01/02/20 07:30 01/02/20 07:26 DC Insulin Human Lispro (HumaLOG INSULIN) SEE PROTOCOL TABLE AC AZ 01/02/20 07:30 01/03/20 10:57 DC 01/03/20 08:55 Insulin Human Lispro (HumaLOG INSULIN) SEE PROTOCOL TABLE AC [place] 01/03/20 12:00 01/04/20 07:28 Insulin Human Lispro (HumaLOG INSULIN) [facility] 21:00 01/02/20 07:26 DC 01/01/20 20:23 Insulin Human Lispro (HumaLOG INSULIN) [facility] 21:00 01/03/20 10:57 DC Insulin Human Lispro (HumaLOG INSULIN) [facility] 21:00 Lorazepam (Ativan) 2 mg ASDIRECTED PRN IV SEE PROTOCOL 12/31/19 18:15 01/01/20 18:45 DC Lorazepam (Ativan) 2 mg ASDIRECTED PRN PO SEE PROTOCOL 12/31/19 14:45 12/31/19 18:06 DC 12/31/19 15:55 Lorazepam (Ativan) 2 mg ASDIRECTED PRN PO SEE PROTOCOL 01/01/20 18:45 01/02/20 00:11 DC 01/01/20 22:32 Lorazepam (Ativan) 2 mg Q2HP PRN IV AGITATION 12/31/19 18:15 12/31/19 18:11 DC Lorazepam (Ativan) 2 mg Q2HP PRN IV AGITATION 01/02/20 00:15 Cancel Magnesium Oxide (Mag-Ox) 400 mg BID PO 01/04/20 09:00 01/04/20 07:30 DC Magnesium Oxide (Mag-Ox) 400 mg TID PO 01/04/20 09:00 01/04/20 09:09 Magnesium Sulfate/ Dextrose 1 gm/IV Miscellaneous Supplies 100 ml @ 100 mls/hr Q1H IV 01/02/20 09:00 01/02/20 10:59 DC 01/02/20 10:11 Magnesium Sulfate/ Dextrose 1 gm/IV Miscellaneous Supplies 100 ml @ 100 mls/hr Q1H IV 01/03/20 08:00 01/03/20 09:59 DC 01/03/20 10:47 Multivitamins (Theragram-M) 1 tab DAILY PO 12/31/19 09:00 12/31/19 18:06 DC Multivitamins (Theragram-M) 1 tab DAILY PO 01/02/20 09:00 01/04/20 07:30 Pantoprazole Sodium (Protonix) 40 mg DAILY PO 01/02/20 09:00 01/04/20 07:30 Pantoprazole Sodium (Protonix) 40 mg Q24H IV 12/31/19 15:00 01/01/20 18:49 DC 01/01/20 14:05 Piperacillin Sod/ Tazobactam Sod 3.375 gm/Dextrose 50 ml @ 50 mls/hr Q6H IV 12/31/19 19:00 01/02/20 07:26 DC 01/02/20 06:42 Potassium Chloride 10 meq/ IV Miscellaneous Supplies 100 ml @ 100 mls/hr 0145,0245 IV 01/01/20 01:45 01/01/20 05:00 DC 01/01/20 03:15 Potassium Chloride 10 meq/ IV Miscellaneous Supplies 100 ml @ 100 mls/hr Q1H IV 12/31/19 20:00 12/31/19 21:59 DC 12/31/19 21:11 Potassium Chloride 10 meq/ IV Miscellaneous Supplies 100 ml @ 100 mls/hr Q1H IV 01/01/20 09:30 01/01/20 13:29 Cancel Potassium Chloride 10 meq/ IV Miscellaneous Supplies 100 ml @ 100 mls/hr Q1H IV 01/01/20 11:00 01/01/20 12:59 DC 01/01/20 12:07 Potassium Chloride 100 ml @ 100 mls/hr 0700,0800 IV 01/01/20 07:00 01/01/20 11:00 DC 01/01/20 09:04 Potassium Chloride (Micro-K Extencaps) 40 meq DAILY PO 01/04/20 09:00 01/04/20 09:12 Prazosin HCl (Minipress) 2 mg QHS PO 01/01/20 21:00 01/02/20 19:20 DC 01/01/20 20:22 Sodium Chloride 1,000 ml @ 100 mls/hr Q10H IV 01/02/20 19:30 01/03/20 13:50 DC 01/03/20 05:43 Sodium Chloride 1,000 ml @ 125 mls/hr Q8H IV 12/31/19 14:45 12/31/19 18:22 DC 12/31/19 15:08 Thiamine HCl (Thiamine HCl) 100 mg BID PO 12/31/19 21:00 12/31/19 18:06 DC Thiamine HCl (Thiamine HCl) 100 mg DAILY PO 01/02/20 09:00 01/04/20 07:29 Thiamine HCl (VITAMIN B1 INJection) 100 mg DAILY IM 01/01/20 09:00 01/01/20 18:45 DC 01/01/20 07:51 Vancomycin HCl (First-Vancomycin 50(Firvanq)- 250mg/5ml) 125 mg Q6H PO 01/02/20 12:00 01/04/20 05:28 Allergies Coded Allergies: benazepril (Verified Allergy, Severe, ANGIOEDEMA, 12/31/19) ENVIROMENTAL (Verified Allergy, Unknown, 06/28/04) Caroline Edmonds MD Jan 04, 2020 12:38
[2020-01-04] MEDS: METOPROLOL SUCC (TopROL XL) 100MG *XL* TAB PO SCH (13:39)
[2020-01-04 14:00] VITALS: BP 137/86
[2020-01-04] MEDS: FENOFIBRATE 145 MG TAB (TRICOR) PO SCH (20:06)
[2020-01-04 22:00] VITALS: BP 162/89
[2020-01-05] MEDS: VANCOMYCIN ORAL SOL 250MG/5ML ORAL SYRINGE PO SCH ×3 (05:24→16:56)
[2020-01-05 06:00] VITALS: BP 147/89
[2020-01-05 07:07] LABS: BASO # 0.1 10^3/uL (0.0-0.2); BASO % 1.3 % (0.0-1.0); EOS % 0.7 % (0.0-3.0); HEMATOCRIT 32.1 % (42.0-52.0); HEMOGLOBIN 10.3 g/dl (13.5-17.5); LYMPH # 1.6 10^3/uL (1.5-5.0); LYMPH % 28.4 % (24.0-44.0); MEAN CORPUSCULAR HEMOGLOBIN 31.8 pg (27.0-33.0); MEAN CORPUSCULAR HGB CONC 32.1 g/dl (32.0-36.5); MEAN CORPUSCULAR VOLUME 99.1 fl (80.0-96.0); MONO # 1.2 10^3/uL (0.0-0.8); MONO % 20.7 % (0.0-5.0); NEUTROPHILS # 2.4 10^3/uL (1.5-8.5); NEUTROPHILS % 41.9 % (36.0-66.0); PLATELET COUNT, AUTOMATED 262 10^3/uL (150-450); RED BLOOD COUNT 3.24 10^6/uL (4.30-6.10); WHITE BLOOD COUNT 5.6 10^3/uL (4.0-10.0)
[2020-01-05 07:35] LABS: ALBUMIN 2.5 GM/DL (3.2-5.2); ALT/SGPT 51 U/L (12-78); BILIRUBIN,TOTAL 0.9 MG/DL (0.2-1.0); BLOOD UREA NITROGEN 16 MG/DL (7-18); CALCIUM LEVEL 7.5 MG/DL (8.8-10.2); CARBON DIOXIDE LEVEL 18 MEQ/L (21-32); CHLORIDE LEVEL 103 MEQ/L (98-107); CREATININE FOR GFR 0.76 MG/DL (0.70-1.30); GLOMERULAR FILTRATION RATE > 60.0 (>49); GLUCOSE, FASTING 194 MG/DL (70-100); MAGNESIUM LEVEL 1.3 MG/DL (1.8-2.4); POTASSIUM SERUM 3.6 MEQ/L (3.5-5.1); SODIUM LEVEL 139 MEQ/L (136-145); TOTAL PROTEIN 5.5 GM/DL (6.4-8.2)
[2020-01-05] MEDS: HumaLOG INSULIN (NovoLOG) PER UNIT SC SCH ×4 (08:11→21:00)
[2020-01-05] MEDS: ENOXAPARIN 40MG/0.4ML SYRINGE (J1650 PER 10MG) SC SCH (08:11)
[2020-01-05] MEDS: FOLIC ACID 1 MG TAB PO SCH (08:12)
[2020-01-05] MEDS: ESCITALOPRAM OXALATE 10 MG TAB (LEXAPRO) PO SCH (08:12)
[2020-01-05] MEDS: MULTIVITAMINS/MINERALS THERAP 1 TAB PO SCH (08:12)
[2020-01-05] MEDS: POTASSIUM CHLORIDE 10 MEQ SR TABLET PO SCH (08:12)
[2020-01-05] MEDS: THIAMINE 100 MG TAB PO SCH (08:13)
[2020-01-05] MEDS: GABAPENTIN 300 MG CAP PO SCH ×2 (08:13→20:12)
[2020-01-05] MEDS: MAGNESIUM OXIDE 400 MG TAB (MAG-OX) PO SCH ×4 (08:13→20:12)
[2020-01-05] MEDS: amLODIPine 5 MG TAB PO SCH (08:14)
[2020-01-05] MEDS: METOPROLOL SUCC (TopROL XL) 100MG *XL* TAB PO SCH (08:14)
[2020-01-05] MEDS: PANTOPRAZOLE 40MG TAB (PROTONIX) PO SCH (08:14)
[2020-01-05] MEDS: **hydrALAZINE** 50 MG TAB PO SCH ×2 (08:15→20:13)
[2020-01-05] MEDS ORDERED: MAG SULF 1GM/100ML (MAG RUN) 1 GM in IV 1 EA IV ONE (10:00)
[2020-01-05 14:00] VITALS: BP 139/80
--- NOTE | 2020-01-05 14:15 | IPNPDOC ---
Date Seen The patient was seen on 01/05/20. Progress Note SUBJECTIVE: 2 BM/ 24H. BS 166-201, on ISS. Denies chest pain, shortness of breath, n/v, fevers, chills, abdominal pain. OBJECTIVE: PHYSICAL EXAMINATION: VS: please see below CONSTITUTIONAL: No acute distress, sitting up in bed, AAO x 3 EYES: PERRLA, EOM intact HENT, MOUTH: Normocephalic, atraumatic, moist mucous membranes NECK: SUPPLE, no JVD, no lymphadenopathy, no carotid bruit CV: Regular rate and rhythm, S1S2 normal, no murmurs/rubs/gallops RESPIRATORY: Clear to auscultation bilaterally, no rales/rhonchi/wheezes GI: obese abd, BS positive in 4 quadrants, soft, nontender, nondistended, no rebound or guarding, no organomegaly : Deferred MUSCULOSKELETAL: Normal ROM. No cyanosis, clubbing, swelling, joint deformity, extremity edema INTEGUMENTARY: Intact, no rashes, no lesions, no erythema NEUROLOGIC: Cranial Nerves II-XII are intact, no focal deficits PSYCHIATRIC: Flat affect LABORATORY/MICROBIOLOGY: Blood cultures x 2 sets: NG at 24 hours. GI panel: pending C. diff PCR: positive IMAGING: MRI abd 01/01/20: Cystic mass anterior head of pancreas which measures 6.2 x 3.7 cm. The wall is mildly irregular and mildly enhances. There is mild dilatation of the distal pancreatic duct. Recent CT exam showed tiny pancreatic calcifications in the body of the pancreas indicating chronic pancreatitis. This cystic mass could possibly represent a benign pseudocyst. However cystic neoplasm needs to be excluded. US abd: The gallbladder appears unremarkable, with no stones identified. The sonographic Hooper's sign is reported to be (-). The CBD is mildly prominent (5-6 mm diameter). No ductal stone is seen. Fatty liver infiltration. Indeterminate hypoechoic (cystic) mass at the pancreatic head / proximal pancreatic body region (also seen on recent CT scan) (4.6 cm avg. size). A pancreatic cystic mass of this size, in a patient of this age, usually warrants further evaluation. Can consider: endoscopic ultrasound; fine needle aspiration; MRI scan; enhanced CT scan with pancreas protocol. Consultation with GI and/or surgical service can also be considered initially, to help in further diagnostic and management plan. CT abd/pelvis: There is a long segment of distal ileum (not terminal ileum) which demonstrates wall thickening and surrounding inflammatory change, with mild dilatation. This is compatible with some type of inflammatory bowel disease. Large right inguinal hernia containing noninflamed fat as well as a portion of the urinary bladder. Tiny pancreatic calcifications compatible with prior pancreatitis. Cystic mass head of the pancreas 5 cm in diameter. Hepatomegaly with diffuse fatty infiltration of the liver. Small hiatal hernia. CT chest without contrast: Fibro atelectatic changes in the dependent lungs with no acute abnormalities. ASSESSMENT: 59-year-old male with past mental history of hypertension, alcohol abuse, peripheral neuropathy, diabetes mellitus type 2, GERD, BPH, erectile dysfunction who was admitted for hypotension likely secondary to dehydration due to diarrhea, rule out infectious etiology, SIRS, alcoholic hepatitis, acute kidney injury likely prerenal cause. PLAN: # C. difficile colitis, resolved diarrhea and sepsis -2 BM/24 H WBC wnl, afebrile -Micro above -Tolerating consistent carb diet -PO vancomycin QID x 3/10 days, contact precautions -GI following #DM type II -BS improving, no episodes of hypoglycemia in 24 hours -Appears to be brittle currently and may have hx of brittle diabetes -C/w consistent carb diet and can incorporate long-acting insulin if blood sugar remains elevated above 200 -C/w ISS, FS AC/HS #Hypomagnesemia, acute on chronic likely 2/2 to decreased Po intake, diarrhea with underlying alcohol abuse -Mag 1.3, s/p mag run x 1 -[place] [address] mg PO TID- monitor for worsening diarrhea -F/u mag daily #Hyperammonemia, likely chronic -Ammonia 62, no mental status changes -Now that patient is eating, would have started lactulose daily ; however, patient has been having 2 BM/day. Goal would be 2 BM a day with lactulose, which patient has already met. -F/u AM ammonia level. #Hypokalemia, acute likely 2/2 to decreased PO intake, diarrhea- resolved -K wnl -C/w KCL daily -F/u AM labs #Physical deconditioning likely 2/2 to acute and chronic illness -Per PT 01/03/20: Patient is demonstrating improved mobility this session. He ambulated 50 feet with SBA and RW, no LOB demonstrated. Patient does have a few steps to get into his home and this will need to be assessed as he is fatigued. Patient will likely clear PT in 1-2 sessions. Home with services recommended. -C/w PT/OT after weekend #Pancreatic mass, pseudocyst vs. cystic neoplasm cannot be excluded -MRI abd above -Will discuss what to do going forward with GI #Pancreatic calcifications likely 2/2 to chronic pancreatitis likely 2/2 to chronic alcohol abuse -MRI abd: tiny pancreatic calcifications in the body of the pancreas indicating chronic pancreatitis. -Monitor closely #Alcoholic hepatitis 2/2 to alcohol abuse -Hx of heavy alcohol abuse. -Elevated AST/ALT, D and T Bili- all improving -F/u daily CMP, avoid hepatotoxic medications #Hepatomegaly, fatty liver 2/2 to alcohol abuse -AST/ALT, Bili-improving -Daily CMP -US abd above #HTN -BP 160's this AM -C/w hydralazine, BB, CCB. Other home medication include losartan, verapamil which can be incorporated over time also if needed #Alcohol abuse -States last drink was >1.5 week ago, no s/s of withdrawl this AM -CIWA protocol stopped. #Peripheral neuropathy -C/w gabapentin #GERD -PPI #BPH -Prazosin #Erectile dysfunction -Will not restart tadalafil #HLD -C/w fenofibrate #DVT px -lovenox SC Resolved issues: #Hypotension likely multifactorial 2/2 to dehydration from diarrhea, medication use #Sepsis 2/2 to C. diff colitis #Acute kidney injury likely 2/2 to prerenal cause, dehydration, hypovolemia #Hyponatremia, acute and likely 2/2 to hypovolemia #Hypoglycemia likely 2/2 to decreased Po intake and acute infection, insulin use DISPOSITION: Admitted under inpatient status. GI following. Plan is hopeful for home when cleared by PT/OT and medicine VS, I&O, 24H, Fishbone Vital Signs/I&O Vital Signs Date Time Temp Pulse Resp B/P (MAP) Pulse Ox O2 Delivery O2 Flow Rate FiO2 01/05/20 08:15 140/89 01/05/20 08:14 88 01/05/20 06:00 98.7 18 96 Room Air 01/01/20 10:00 0.0 I&O- Last 24 Hours up to 6 AM 01/05/20 06:00 Intake Total 1990 ml Output Total 0 ml Balance 1990 ml Laboratory Data 24H LABS Laboratory Tests 2 01/04/20 16:41: Bedside Glucose (Misc Panel) 166H 01/04/20 19:39: Bedside Glucose (Misc Panel) 177H 01/05/20 06:40: Immature Granulocyte % (Auto) 7.0H, Neutrophils (%) (Auto) 41.9, Lymphocytes (%) (Auto) 28.4, Monocytes (%) (Auto) 20.7H, Eosinophils (%) (Auto) 0.7, Basophils (%) (Auto) 1.3H, Neutrophils # (Auto) 2.4, Lymphocytes # (Auto) 1.6, Monocytes # (Auto) 1.2H, Eosinophils # (Auto) 0.0, Basophils # (Auto) 0.1, Nucleated Red Blood Cells % (auto) 0.0, Anion Gap 18H, Glomerular Filtration Rate > 60.0, Calcium Level 7.5L, Magnesium Level 1.3L, Total Bilirubin 0.9, Aspartate Amino Transf (AST/SGOT) 48H, Alanine Aminotransferase (ALT/SGPT) 51, Alkaline Phosphatase 118H, Ammonia 62H, Total Protein 5.5L, Albumin 2.5L, Albumin/Globulin Ratio 0.8 01/05/20 11:38: Bedside Glucose (Misc Panel) 201H CBC/BMP Laboratory Tests 01/05/20 06:40 Microbiology Microbiology 12/31/19 Blood Culture - Final, Complete NO GROWTH AFTER 5 DAYS 12/31/19 Blood Culture - Final, Complete NO GROWTH AFTER 5 DAYS 12/31/19 Respiratory Virus Panel (PCR) (ESTEFANIA) - Final, Complete 12/31/19 Campylobacter (PCR) - Final, Complete 12/31/19 Clostridium difficile Toxin A&B PCR - Final, Complete 12/31/19 Plesiomonas shigelloides (PCR) - Final, Complete 12/31/19 Salmonella (PCR)(ESTEFANIA) - Final, Complete 12/31/19 Vibrio Species (PCR) - Final, Complete 12/31/19 Vibrio Cholerae (PCR) - Final, Complete 12/31/19 Yersinia enterocolitica (PCR) - Final, Complete 12/31/19 Enteroaggregative E. coli (PCR) - Final, Complete 12/31/19 Enteropathogenic E. coli (PCR) - Final, Complete 12/31/19 Enterotoxigenic E. coli (PCR) - Final, Complete 12/31/19 E. coli Shiga-like Toxin (PCR) - Final, Complete 12/31/19 Escherichia coli 0157 (PCR) - Final, Complete 12/31/19 Enteroinvasive E. coli/Shigella PCR - Final, Complete 12/31/19 Cryptosporidium (PCR) - Final, Complete 12/31/19 Cyclospora cayetanensis (PCR) - Final, Complete 12/31/19 Entamoeba histolytica (PCR) - Final, Complete 12/31/19 Giardia lamblia (PCR) - Final, Complete 12/31/19 Adenovirus Type F 40/41 (PCR) - Final, Complete 12/31/19 Astrovirus (PCR) - Final, Complete 12/31/19 Norovirus GI/GII (PCR) - Final, Complete 12/31/19 Rotavirus A (PCR) - Final, Complete 12/31/19 Sapovirus I/II/IV/V (PCR) - Final, Complete Current Medications Current Medications Medications (Trade) Dose Ordered Sig/Mary Route PRN Reason Start Time Stop Time Status Last Admin Dose Admin Amlodipine Besylate (Norvasc) 5 mg DAILY PO 01/03/20 09:00 01/05/20 08:14 Aripiprazole (AbiLIFY) 5 mg QHS PO 01/01/20 21:00 01/04/20 20:06 Dextrose (Dextrose 50%) 25 ml ASDIRECTED PRN IV SEE LABEL COMMENTS 12/31/19 20:00 12/31/19 20:33 Dextrose (Dextrose 50%) 50 ml STAT STAT IV 12/31/19 18:20 12/31/19 18:22 DC 12/31/19 18:26 Dextrose/Sodium Chloride 1,000 ml @ 125 mls/hr Q8H IV 12/31/19 18:30 01/01/20 12:19 DC 01/01/20 03:15 Enoxaparin Sodium (Lovenox) 40 mg DAILY SC 01/01/20 09:00 01/05/20 08:11 Escitalopram Oxalate (Lexapro) 20 mg DAILY PO 01/02/20 09:00 01/05/20 08:12 Fenofibrate (Tricor) 145 mg QHS PO 01/01/20 21:00 01/04/20 20:06 Folic Acid (Folic Acid) 1 mg DAILY PO 12/31/19 09:00 12/31/19 18:06 DC Folic Acid (Folic Acid) 1 mg DAILY PO 01/02/20 09:00 01/05/20 08:12 Folic Acid 1 mg/ Sodium Chloride 50.2 ml @ 100.4 mls/ hr Q24H IV 01/01/20 18:00 01/01/20 18:45 DC 01/01/20 18:27 Gabapentin (Neurontin) 300 mg QAM PO 01/02/20 09:00 01/05/20 08:13 Gabapentin (Neurontin) 600 mg QHS PO 01/01/20 21:00 01/04/20 20:05 Glucagon (Glucagon) 1 mg ASDIRECTED PRN SC SEE LABEL COMMENTS 12/31/19 20:00 Glucose (Glucose) 16 GM ASDIRECTED PRN PO SEE LABEL COMMENTS 12/31/19 20:00 Home Med (Med Rec Complete!) ASDIRECTED XX 12/31/19 14:15 12/31/19 14:17 DC Hydralazine HCl (Apresoline) 100 mg BID PO 01/03/20 09:00 01/05/20 08:15 Insulin Detemir (Levemir Insulin) 30 units BID SC 01/01/20 21:00 01/02/20 07:22 DC 01/01/20 20:22 Insulin Human Lispro (HumaLOG INSULIN) SEE PROTOCOL TABLE AC [place] 01/02/20 07:30 01/02/20 07:26 DC Insulin Human Lispro (HumaLOG INSULIN) SEE PROTOCOL TABLE AC [place] 01/02/20 07:30 01/03/20 10:57 DC 01/03/20 08:55 Insulin Human Lispro (HumaLOG INSULIN) SEE PROTOCOL TABLE AC [place] 01/03/20 12:00 01/05/20 11:49 Insulin Human Lispro (HumaLOG INSULIN) [facility] 01[facility] 21:00 01/02/20 07:26 DC 01/01/20 20:23 Insulin Human Lispro (HumaLOG INSULIN) [facility] 01/02/20 21:00 01/03/20 10:57 DC Insulin Human Lispro (HumaLOG INSULIN) [facility] 01/03/20 21:00 Lorazepam (Ativan) 2 mg ASDIRECTED PRN IV SEE PROTOCOL 12/31/19 18:15 01/01/20 18:45 DC Lorazepam (Ativan) 2 mg ASDIRECTED PRN PO SEE PROTOCOL 12/31/19 14:45 12/31/19 18:06 DC 12/31/19 15:55 Lorazepam (Ativan) 2 mg ASDIRECTED PRN PO SEE PROTOCOL 01/01/20 18:45 01/02/20 00:11 DC 01/01/20 22:32 Lorazepam (Ativan) 2 mg Q2HP PRN IV AGITATION 12/31/19 18:15 12/31/19 18:11 DC Lorazepam (Ativan) 2 mg Q2HP PRN IV AGITATION 01/02/20 00:15 Cancel Magnesium Oxide (Mag-Ox) 400 mg BID PO 01/04/20 09:00 01/04/20 07:30 DC Magnesium Oxide (Mag-Ox) 400 mg TID PO 01/04/20 09:00 01/05/20 08:22 DC 01/05/20 08:13 Magnesium Oxide (Mag-Ox) 800 mg TID PO 01/05/20 09:00 01/05/20 09:48 Magnesium Sulfate/ Dextrose 1 gm/IV Miscellaneous Supplies 100 ml @ 100 mls/hr Q1H IV 01/02/20 09:00 01/02/20 10:59 DC 01/02/20 10:11 Magnesium Sulfate/ Dextrose 1 gm/IV Miscellaneous Supplies 100 ml @ 100 mls/hr Q1H IV 01/03/20 08:00 01/03/20 09:59 DC 01/03/20 10:47 Metoprolol Succinate (TopROL XL) 100 mg DAILY PO 01/04/20 13:00 01/05/20 08:14 Multivitamins (Theragram-M) 1 tab DAILY PO 12/31/19 09:00 12/31/19 18:06 DC Multivitamins (Theragram-M) 1 tab DAILY PO 01/02/20 09:00 01/05/20 08:12 Pantoprazole Sodium (Protonix) 40 mg DAILY PO 01/02/20 09:00 01/05/20 08:14 Pantoprazole Sodium (Protonix) 40 mg Q24H IV 12/31/19 15:00 01/01/20 18:49 DC 01/01/20 14:05 Piperacillin Sod/ Tazobactam Sod 3.375 gm/Dextrose 50 ml @ 50 mls/hr Q6H IV 12/31/19 19:00 01/02/20 07:26 DC 01/02/20 06:42 Potassium Chloride 10 meq/ IV Miscellaneous Supplies 100 ml @ 100 mls/hr 0145,0245 IV 01/01/20 01:45 01/01/20 05:00 DC 01/01/20 03:15 Potassium Chloride 10 meq/ IV Miscellaneous Supplies 100 ml @ 100 mls/hr Q1H IV 12/31/19 20:00 12/31/19 21:59 DC 12/31/19 21:11 Potassium Chloride 10 meq/ IV Miscellaneous Supplies 100 ml @ 100 mls/hr Q1H IV 01/01/20 09:30 01/01/20 13:29 Cancel Potassium Chloride 10 meq/ IV Miscellaneous Supplies 100 ml @ 100 mls/hr Q1H IV 01/01/20 11:00 01/01/20 12:59 DC 01/01/20 12:07 Potassium Chloride 100 ml @ 100 mls/hr 0700,0800 IV 01/01/20 07:00 01/01/20 11:00 DC 01/01/20 09:04 Potassium Chloride (Micro-K Extencaps) 40 meq DAILY PO 01/04/20 09:00 01/05/20 08:12 Prazosin HCl (Minipress) 2 mg QHS PO 01/01/20 21:00 01/02/20 19:20 DC 01/01/20 20:22 Sodium Chloride 1,000 ml @ 100 mls/hr Q10H IV 01/02/20 19:30 01/03/20 13:50 DC 01/03/20 05:43 Sodium Chloride 1,000 ml @ 125 mls/hr Q8H IV 12/31/19 14:45 12/31/19 18:22 DC 12/31/19 15:08 Thiamine HCl (Thiamine HCl) 100 mg BID PO 12/31/19 21:00 12/31/19 18:06 DC Thiamine HCl (Thiamine HCl) 100 mg DAILY PO 01/02/20 09:00 01/05/20 08:13 Thiamine HCl (VITAMIN B1 INJection) 100 mg DAILY IM 01/01/20 09:00 01/01/20 18:45 DC 01/01/20 07:51 Vancomycin HCl (First-Vancomycin 50(Firvanq)- 250mg/5ml) 125 mg Q6H PO 01/02/20 12:00 01/05/20 11:48 Allergies Coded Allergies: benazepril (Verified Allergy, Severe, ANGIOEDEMA, 12/31/19) ENVIROMENTAL (Verified Allergy, Unknown, 06/28/04) Caroline Edmonds MD Jan 05, 2020 14:15
[2020-01-05] MEDS: FENOFIBRATE 145 MG TAB (TRICOR) PO SCH (20:14)
[2020-01-05 22:00] VITALS: BP 164/98
[2020-01-06] MEDS: VANCOMYCIN ORAL SOL 250MG/5ML ORAL SYRINGE PO SCH ×4 (00:13→17:50)
[2020-01-06 06:00] VITALS: BP 152/93
[2020-01-06 06:30] LABS: HEMATOCRIT 31.8 % (42.0-52.0); HEMOGLOBIN 10.5 g/dl (13.5-17.5); MEAN CORPUSCULAR HEMOGLOBIN 32.6 pg (27.0-33.0); MEAN CORPUSCULAR VOLUME 98.8 fl (80.0-96.0); PLATELET COUNT, AUTOMATED 296 10^3/uL (150-450); RED BLOOD COUNT 3.22 10^6/uL (4.30-6.10); WHITE BLOOD COUNT 5.1 10^3/uL (4.0-10.0)
[2020-01-06 06:52] LABS: ALBUMIN 2.5 GM/DL (3.2-5.2); ALT/SGPT 50 U/L (12-78); BILIRUBIN,TOTAL 0.8 MG/DL (0.2-1.0); BLOOD UREA NITROGEN 15 MG/DL (7-18); CALCIUM LEVEL 7.9 MG/DL (8.8-10.2); CARBON DIOXIDE LEVEL 21 MEQ/L (21-32); CHLORIDE LEVEL 103 MEQ/L (98-107); GLOMERULAR FILTRATION RATE > 60.0 (>49); GLUCOSE, FASTING 186 MG/DL (70-100); MAGNESIUM LEVEL 1.3 MG/DL (1.8-2.4); POTASSIUM SERUM 3.9 MEQ/L (3.5-5.1); SODIUM LEVEL 139 MEQ/L (136-145); TOTAL PROTEIN 5.4 GM/DL (6.4-8.2)
[2020-01-06] MEDS: PANTOPRAZOLE 40MG TAB (PROTONIX) PO SCH (08:12)
[2020-01-06] MEDS: GABAPENTIN 300 MG CAP PO SCH ×2 (08:12→20:45)
[2020-01-06] MEDS: ESCITALOPRAM OXALATE 10 MG TAB (LEXAPRO) PO SCH (08:13)
[2020-01-06] MEDS: FOLIC ACID 1 MG TAB PO SCH (08:13)
[2020-01-06] MEDS: MAGNESIUM OXIDE 400 MG TAB (MAG-OX) PO SCH ×2 (08:13→20:45)
[2020-01-06] MEDS: MULTIVITAMINS/MINERALS THERAP 1 TAB PO SCH (08:13)
[2020-01-06] MEDS: THIAMINE 100 MG TAB PO SCH (08:13)
[2020-01-06] MEDS: **hydrALAZINE** 50 MG TAB PO SCH ×2 (08:14→20:44)
[2020-01-06] MEDS: POTASSIUM CHLORIDE 10 MEQ SR TABLET PO SCH (08:14)
[2020-01-06] MEDS: METOPROLOL SUCC (TopROL XL) 100MG *XL* TAB PO SCH (08:15)
[2020-01-06] MEDS: amLODIPine 5 MG TAB PO SCH (08:15)
[2020-01-06] MEDS: HumaLOG INSULIN (NovoLOG) PER UNIT SC SCH ×4 (08:16→20:37)
[2020-01-06] MEDS: ENOXAPARIN 40MG/0.4ML SYRINGE (J1650 PER 10MG) SC SCH (08:16)
[2020-01-06] MEDS: MAG SULF 1GM/100ML (MAG RUN) 1 GM in IV 1 EA IV SCH ×2 (08:51→09:59)
[2020-01-06 14:00] VITALS: BP_SYST 136; BP_SYST 150; BP_DIAS 80; BP_DIAS 90
--- NOTE | 2020-01-06 15:18 | IPNPDOC ---
Date Seen The patient was seen on 01/06/20. Progress Note SUBJECTIVE: 4 BM 01/05/20, possibly 2/2 to high magnesium. Will decrease to BID, goal is two BM/day with hyperammonemia- no suspicious of c. diff worsening. BS <200, keeping only on ISS for now. PT: working on stairs today, if continues to do well possibly home 01/07/20. Denies chest pain, shortness of breath, n/v, fevers, chills, abdominal pain. OBJECTIVE: PHYSICAL EXAMINATION: VS: please see below CONSTITUTIONAL: No acute distress, sitting up in bed, AAO x 3 EYES: PERRLA, EOM intact HENT, MOUTH: Normocephalic, atraumatic, moist mucous membranes NECK: SUPPLE, no JVD, no lymphadenopathy, no carotid bruit CV: Regular rate and rhythm, S1S2 normal, no murmurs/rubs/gallops RESPIRATORY: Clear to auscultation bilaterally, no rales/rhonchi/wheezes GI: obese abd, BS positive in 4 quadrants, soft, nontender, nondistended, no rebound or guarding, no organomegaly : Deferred MUSCULOSKELETAL: Normal ROM. No cyanosis, clubbing, swelling, joint deformity, extremity edema INTEGUMENTARY: Intact, no rashes, no lesions, no erythema NEUROLOGIC: Cranial Nerves II-XII are intact, no focal deficits PSYCHIATRIC: Flat affect LABORATORY/MICROBIOLOGY: Blood cultures x 2 sets: NG at 24 hours. GI panel: pending C. diff PCR: positive IMAGING: MRI abd 01/01/20: Cystic mass anterior head of pancreas which measures 6.2 x 3.7 cm. The wall is mildly irregular and mildly enhances. There is mild dilatation of the distal pancreatic duct. Recent CT exam showed tiny pancreatic calcifications in the body of the pancreas indicating chronic pancreatitis. This cystic mass could possibly represent a benign pseudocyst. However cystic neoplasm needs to be excluded. US abd: The gallbladder appears unremarkable, with no stones identified. The sonographic Hooper's sign is reported to be (-). The CBD is mildly prominent (5-6 mm diameter). No ductal stone is seen. Fatty liver infiltration. Indeterminate hypoechoic (cystic) mass at the pancreatic head / proximal pancreatic body region (also seen on recent CT scan) (4.6 cm avg. size). A pancreatic cystic mass of this size, in a patient of this age, usually warrants further evaluation. Can consider: endoscopic ultrasound; fine needle aspiration; MRI scan; enhanced CT scan with pancreas protocol. Consultation with GI and/or surgical service can also be considered initially, to help in further diagnostic and management plan. CT abd/pelvis: There is a long segment of distal ileum (not terminal ileum) which demonstrates wall thickening and surrounding inflammatory change, with mild dilatation. This is compatible with some type of inflammatory bowel disease. Large right inguinal hernia containing noninflamed fat as well as a portion of the urinary bladder. Tiny pancreatic calcifications compatible with prior pancreatitis. Cystic mass head of the pancreas 5 cm in diameter. Hepatomegaly with diffuse fatty infiltration of the liver. Small hiatal hernia. CT chest without contrast: Fibro atelectatic changes in the dependent lungs with no acute abnormalities. ASSESSMENT: 59-year-old male with past mental history of hypertension, alcohol abuse, peripheral neuropathy, diabetes mellitus type 2, GERD, BPH, erectile dysfunction who was admitted for hypotension likely secondary to dehydration due to diarrhea, rule out infectious etiology, SIRS, alcoholic hepatitis, acute kidney injury likely prerenal cause. PLAN: # C. difficile colitis, resolved diarrhea and sepsis -4 BM/24 H WBC wnl, afebrile -Micro above -Tolerating consistent carb diet -PO vancomycin QID x 4/10 days, contact precautions -GI following #DM type II -BS <200, range over 24 hours: 132-201. No longer having episodes of hypoglyc emia -Appears to be brittle this hospital stay and may have hx of brittle diabetes -C/w consistent carb diet and can incorporate long-acting insulin if blood sugar remains elevated above 200 -C/w ISS, FS AC/HS #Hypomagnesemia, acute on chronic likely 2/2 to decreased Po intake, diarrhea with underlying alcohol abuse, ? high dose mag ox? -Mag 1.3 for several days in a row despite multiple magruns daily. -Today to get another 2 gm -Will d/c down to mag ox 800 mg BID from TID due to incr diarrhea -F/u mag in AM #Hyperammonemia, likely chronic -Ammonia 59, no mental status changes -Now that patient is eating, would have started lactulose daily ; however, patient has been having 2-4 BM/day. Goal would be 2 BM a day with lactulose, which patient has already met. -F/u AM ammonia level. -Patient will need follow up with Dr. Hdez as o/p when time for discharge. #Physical deconditioning likely 2/2 to acute and chronic illness -Per PT 01/03/20: Patient is demonstrating improved mobility this session. He ambulated 50 feet with SBA and RW, no LOB demonstrated. Patient does have a few steps to get into his home and this will need to be assessed as he is fatigued. Patient will likely clear PT in 1-2 sessions. Home with services recommended. -F/u evaluation from today with stairs and if did ok then likely home -C/w PT/OT #Pancreatic mass, pseudocyst vs. cystic neoplasm cannot be excluded -MRI abd above -TB with GI to discuss options #Pancreatic calcifications likely 2/2 to chronic pancreatitis likely 2/2 to chronic alcohol abuse -MRI abd: tiny pancreatic calcifications in the body of the pancreas indicating chronic pancreatitis. -Monitor closely #Alcoholic hepatitis 2/2 to alcohol abuse -Hx of heavy alcohol abuse. -Elevated AST/ALT, D and T Bili- all improving -F/u daily CMP, avoid hepatotoxic medications -Will need f/u with Dr. Hdez as o/p #Hepatomegaly, fatty liver 2/2 to alcohol abuse -AST/ALT, Bili-improving -Daily CMP -US abd above #HTN -BP 160's this AM -C/w hydralazine, BB, verapamil, amlodipine. Other home medication include losartan which can be incorporated over time also if needed #Alcohol abuse -No s/s of withdrawl this AM -CIWA protocol stopped. #Peripheral neuropathy -C/w gabapentin #GERD -PPI #BPH -Prazosin #Erectile dysfunction -Will not restart tadalafil #HLD -C/w fenofibrate #DVT px -lovenox SC Resolved issues: #Hypotension likely multifactorial 2/2 to dehydration from diarrhea, medication use #Sepsis 2/2 to C. diff colitis #Acute kidney injury likely 2/2 to prerenal cause, dehydration, hypovolemia #Hyponatremia, acute and likely 2/2 to hypovolemia #Hypoglycemia likely 2/2 to decreased Po intake and acute infection, insulin use #Hypokalemia, acute likely 2/2 to decreased PO intake, diarrhea DISPOSITION: Plan is hopeful for home when cleared by PT/OT and medicine. Reaching out to GI to further discuss pancreatic cyst vs. neoplasm today, as to whether or not he would like additional testing done prior to d/c. VS, I&O, 24H, Megan Vital Signs/I&O Vital Signs Date Time Temp Pulse Resp B/P (MAP) Pulse Ox O2 Delivery O2 Flow Rate FiO2 01/06/20 14:00 97.6 82 18 150/90 (110) 97 Room Air 01/01/20 10:00 0.0 I&O- Last 24 Hours up to 6 AM 01/06/20 06:00 Intake Total 2310 ml Output Total 0 ml Balance 2310 ml Laboratory Data 24H LABS Laboratory Tests 2 01/05/20 16:31: Bedside Glucose (Misc Panel) 132H 01/05/20 20:09: Bedside Glucose (Misc Panel) 193H 01/06/20 05:57: Nucleated Red Blood Cells % (auto) 0.0, Anion Gap 15, Glomerular Filtration Rate > 60.0, Calcium Level 7.9L, Magnesium Level 1.3L, Total Bilirubin 0.8, Aspartate Amino Transf (AST/SGOT) 49H, Alanine Aminotransferase (ALT/SGPT) 50, Alkaline Phosphatase 108, Ammonia 59H, Total Protein 5.4L, Albumin 2.5L, Albumin/Globulin Ratio 0.9 01/06/20 12:01: Bedside Glucose (Misc Panel) 171H CBC/BMP Laboratory Tests 01/06/20 05:57 Microbiology Microbiology 12/31/19 Blood Culture - Final, Complete NO GROWTH AFTER 5 DAYS 12/31/19 Blood Culture - Final, Complete NO GROWTH AFTER 5 DAYS 12/31/19 Respiratory Virus Panel (PCR) (ESTEFANIA) - Final, Complete 12/31/19 Campylobacter (PCR) - Final, Complete 12/31/19 Clostridium difficile Toxin A&B PCR - Final, Complete 12/31/19 Plesiomonas shigelloides (PCR) - Final, Complete 12/31/19 Salmonella (PCR)(ESTEFANIA) - Final, Complete 12/31/19 Vibrio Species (PCR) - Final, Complete 12/31/19 Vibrio Cholerae (PCR) - Final, Complete 12/31/19 Yersinia enterocolitica (PCR) - Final, Complete 12/31/19 Enteroaggregative E. coli (PCR) - Final, Complete 12/31/19 Enteropathogenic E. coli (PCR) - Final, Complete 12/31/19 Enterotoxigenic E. coli (PCR) - Final, Complete 12/31/19 E. coli Shiga-like Toxin (PCR) - Final, Complete 12/31/19 Escherichia coli 0157 (PCR) - Final, Complete 12/31/19 Enteroinvasive E. coli/Shigella PCR - Final, Complete 12/31/19 Cryptosporidium (PCR) - Final, Complete 12/31/19 Cyclospora cayetanensis (PCR) - Final, Complete 12/31/19 Entamoeba histolytica (PCR) - Final, Complete 12/31/19 Giardia lamblia (PCR) - Final, Complete 12/31/19 Adenovirus Type F 40/41 (PCR) - Final, Complete 12/31/19 Astrovirus (PCR) - Final, Complete 12/31/19 Norovirus GI/GII (PCR) - Final, Complete 12/31/19 Rotavirus A (PCR) - Final, Complete 12/31/19 Sapovirus I/II/IV/V (PCR) - Final, Complete Current Medications Current Medications Medications (Trade) Dose Ordered Sig/Mary Route PRN Reason Start Time Stop Time Status Last Admin Dose Admin Amlodipine Besylate (Norvasc) 5 mg DAILY PO 01/03/20 09:00 01/06/20 08:15 Aripiprazole (AbiLIFY) 5 mg QHS PO 01/01/20 21:00 01/05/20 20:14 Dextrose (Dextrose 50%) 25 ml ASDIRECTED PRN IV SEE LABEL COMMENTS 12/31/19 20:00 12/31/19 20:33 Dextrose (Dextrose 50%) 50 ml STAT STAT IV 12/31/19 18:20 12/31/19 18:22 DC 12/31/19 18:26 Dextrose/Sodium Chloride 1,000 ml @ 125 mls/hr Q8H IV 12/31/19 18:30 01/01/20 12:19 DC 01/01/20 03:15 Enoxaparin Sodium (Lovenox) 40 mg DAILY SC 01/01/20 09:00 01/06/20 08:16 Escitalopram Oxalate (Lexapro) 20 mg DAILY PO 01/02/20 09:00 01/06/20 08:13 Fenofibrate (Tricor) 145 mg QHS PO 01/01/20 21:00 01/05/20 20:14 Folic Acid (Folic Acid) 1 mg DAILY PO 12/31/19 09:00 12/31/19 18:06 DC Folic Acid (Folic Acid) 1 mg DAILY PO 01/02/20 09:00 01/06/20 08:13 Folic Acid 1 mg/ Sodium Chloride 50.2 ml @ 100.4 mls/ hr Q24H IV 01/01/20 18:00 01/01/20 18:45 DC 01/01/20 18:27 Gabapentin (Neurontin) 300 mg QAM PO 01/02/20 09:00 01/06/20 08:12 Gabapentin (Neurontin) 600 mg QHS PO 01/01/20 21:00 01/05/20 20:12 Glucagon (Glucagon) 1 mg ASDIRECTED PRN SC SEE LABEL COMMENTS 12/31/19 20:00 Glucose (Glucose) 16 GM ASDIRECTED PRN PO SEE LABEL COMMENTS 12/31/19 20:00 Home Med (Med Rec Complete!) ASDIRECTED XX 12/31/19 14:15 12/31/19 14:17 DC Hydralazine HCl (Apresoline) 100 mg BID PO 01/03/20 09:00 01/06/20 08:14 Insulin Detemir (Levemir Insulin) 30 units BID SC 01/01/20 21:00 01/02/20 07:22 DC 01/01/20 20:22 Insulin Human Lispro (HumaLOG INSULIN) SEE PROTOCOL TABLE AC MN 01/02/20 07:30 01/02/20 07:26 DC Insulin Human Lispro (HumaLOG INSULIN) SEE PROTOCOL TABLE AC MN 01/02/20 07:30 01/03/20 10:57 DC 01/03/20 08:55 Insulin Human Lispro (HumaLOG INSULIN) SEE PROTOCOL TABLE AC MN 01/03/20 12:00 01/06/20 12:42 Insulin Human Lispro (HumaLOG INSULIN) SEE PROTOCOL TABLE Q SC 01/01/20 21:00 01/02/20 07:26 DC 01/01/20 20:23 Insulin Human Lispro (HumaLOG INSULIN) SEE PROTOCOL TABLE QHS SC 01/02/20 21:00 01/03/20 10:57 DC Insulin Human Lispro (HumaLOG INSULIN) SEE PROTOCOL TABLE QHS SC 01/03/20 21:00 Lorazepam (Ativan) 2 mg ASDIRECTED PRN IV SEE PROTOCOL 12/31/19 18:15 01/01/20 18:45 DC Lorazepam (Ativan) 2 mg ASDIRECTED PRN PO SEE PROTOCOL 12/31/19 14:45 12/31/19 18:06 DC 12/31/19 15:55 Lorazepam (Ativan) 2 mg ASDIRECTED PRN PO SEE PROTOCOL 01/01/20 18:45 01/02/20 00:11 DC 01/01/20 22:32 Lorazepam (Ativan) 2 mg Q2HP PRN IV AGITATION 12/31/19 18:15 12/31/19 18:11 DC Lorazepam (Ativan) 2 mg Q2HP PRN IV AGITATION 01/02/20 00:15 Cancel Magnesium Oxide (Mag-Ox) 400 mg BID PO 01/04/20 09:00 01/04/20 07:30 DC Magnesium Oxide (Mag-Ox) 400 mg TID PO 01/04/20 09:00 01/05/20 08:22 DC 01/05/20 08:13 Magnesium Oxide (Mag-Ox) 800 mg TID PO 01/05/20 09:00 01/06/20 08:13 Magnesium Sulfate/ Dextrose 1 gm/IV Miscellaneous Supplies 100 ml @ 100 mls/hr Q1H IV 01/02/20 09:00 01/02/20 10:59 DC 01/02/20 10:11 Magnesium Sulfate/ Dextrose 1 gm/IV Miscellaneous Supplies 100 ml @ 100 mls/hr Q1H IV 01/03/20 08:00 01/03/20 09:59 DC 01/03/20 10:47 Magnesium Sulfate/ Dextrose 1 gm/IV Miscellaneous Supplies 100 ml @ 100 mls/hr Q1H IV 01/06/20 08:30 01/06/20 10:29 DC 01/06/20 09:59 Metoprolol Succinate (TopROL XL) 100 mg DAILY PO 01/04/20 13:00 01/06/20 08:15 Multivitamins (Theragram-M) 1 tab DAILY PO 12/31/19 09:00 12/31/19 18:06 DC Multivitamins (Theragram-M) 1 tab DAILY PO 01/02/20 09:00 01/06/20 08:13 Pantoprazole Sodium (Protonix) 40 mg DAILY PO 01/02/20 09:00 01/06/20 08:12 Pantoprazole Sodium (Protonix) 40 mg Q24H IV 12/31/19 15:00 01/01/20 18:49 DC 01/01/20 14:05 Piperacillin Sod/ Tazobactam Sod 3.375 gm/Dextrose 50 ml @ 50 mls/hr Q6H IV 12/31/19 19:00 01/02/20 07:26 DC 01/02/20 06:42 Potassium Chloride 10 meq/ IV Miscellaneous Supplies 100 ml @ 100 mls/hr 0145,0245 IV 01/01/20 01:45 01/01/20 05:00 DC 01/01/20 03:15 Potassium Chloride 10 meq/ IV Miscellaneous Supplies 100 ml @ 100 mls/hr Q1H IV 12/31/19 20:00 12/31/19 21:59 DC 12/31/19 21:11 Potassium Chloride 10 meq/ IV Miscellaneous Supplies 100 ml @ 100 mls/hr Q1H IV 01/01/20 09:30 01/01/20 13:29 Cancel Potassium Chloride 10 meq/ IV Miscellaneous Supplies 100 ml @ 100 mls/hr Q1H IV 01/01/20 11:00 01/01/20 12:59 DC 01/01/20 12:07 Potassium Chloride 100 ml @ 100 mls/hr 0700,0800 IV 01/01/20 07:00 01/01/20 11:00 DC 01/01/20 09:04 Potassium Chloride (Micro-K Extencaps) 40 meq DAILY PO 01/04/20 09:00 01/06/20 08:14 Prazosin HCl (Minipress) 2 mg QHS PO 01/01/20 21:00 01/02/20 19:20 DC 01/01/20 20:22 Sodium Chloride 1,000 ml @ 100 mls/hr Q10H IV 01/02/20 19:30 01/03/20 13:50 DC 01/03/20 05:43 Sodium Chloride 1,000 ml @ 125 mls/hr Q8H IV 12/31/19 14:45 12/31/19 18:22 DC 12/31/19 15:08 Thiamine HCl (Thiamine HCl) 100 mg BID PO 12/31/19 21:00 12/31/19 18:06 DC Thiamine HCl (Thiamine HCl) 100 mg DAILY PO 01/02/20 09:00 01/06/20 08:13 Thiamine HCl (VITAMIN B1 INJection) 100 mg DAILY IM 01/01/20 09:00 01/01/20 18:45 DC 01/01/20 07:51 Vancomycin HCl (First-Vancomycin 50(Firvanq)- 250mg/5ml) 125 mg Q6H PO 01/02/20 12:00 01/06/20 12:41 Allergies Coded Allergies: benazepril (Verified Allergy, Severe, ANGIOEDEMA, 12/31/19) ENVIROMENTAL (Verified Allergy, Unknown, 06/28/04) Caroline Edmonds MD Jan 06, 2020 15:18
[2020-01-06] MEDS: FENOFIBRATE 145 MG TAB (TRICOR) PO SCH (20:45)
[2020-01-06 22:00] VITALS: BP 162/94
[2020-01-07] MEDS: VANCOMYCIN ORAL SOL 250MG/5ML ORAL SYRINGE PO SCH ×3 (00:22→11:56)
[2020-01-07 06:00] VITALS: BP 140/86
[2020-01-07 06:17] LABS: HEMATOCRIT 33.6 % (42.0-52.0); HEMOGLOBIN 11.1 g/dl (13.5-17.5); MEAN CORPUSCULAR HEMOGLOBIN 32.5 pg (27.0-33.0); MEAN CORPUSCULAR VOLUME 98.2 fl (80.0-96.0); PLATELET COUNT, AUTOMATED 337 10^3/uL (150-450); RED BLOOD COUNT 3.42 10^6/uL (4.30-6.10); WHITE BLOOD COUNT 5.2 10^3/uL (4.0-10.0)
[2020-01-07 06:38] LABS: ALBUMIN 2.3 GM/DL (3.2-5.2); ALT/SGPT 54 U/L (12-78); BILIRUBIN,TOTAL 0.7 MG/DL (0.2-1.0); BLOOD UREA NITROGEN 12 MG/DL (7-18); CALCIUM LEVEL 7.9 MG/DL (8.8-10.2); CARBON DIOXIDE LEVEL 23 MEQ/L (21-32); CHLORIDE LEVEL 104 MEQ/L (98-107); CREATININE FOR GFR 0.72 MG/DL (0.70-1.30); GLOMERULAR FILTRATION RATE > 60.0 (>49); GLUCOSE, FASTING 193 MG/DL (70-100); MAGNESIUM LEVEL 1.4 MG/DL (1.8-2.4); POTASSIUM SERUM 3.6 MEQ/L (3.5-5.1); SODIUM LEVEL 140 MEQ/L (136-145); TOTAL PROTEIN 5.6 GM/DL (6.4-8.2)
[2020-01-07] MEDS ORDERED: VERAPAMIL 180MG EXTENDED RELEASE TABLET PO SCH (09:00)
[2020-01-07] MEDS: ENOXAPARIN 40MG/0.4ML SYRINGE (J1650 PER 10MG) SC SCH (09:05)
[2020-01-07] MEDS: PANTOPRAZOLE 40MG TAB (PROTONIX) PO SCH (09:05)
[2020-01-07] MEDS: POTASSIUM CHLORIDE 10 MEQ SR TABLET PO SCH (09:05)
[2020-01-07 09:06] VITALS: BP 153/93
[2020-01-07] MEDS: MAGNESIUM OXIDE 400 MG TAB (MAG-OX) PO SCH (09:06)
[2020-01-07] MEDS: GABAPENTIN 300 MG CAP PO SCH (09:06)
[2020-01-07] MEDS: **hydrALAZINE** 50 MG TAB PO SCH (09:07)
[2020-01-07] MEDS: ESCITALOPRAM OXALATE 10 MG TAB (LEXAPRO) PO SCH (09:07)
[2020-01-07] MEDS: METOPROLOL SUCC (TopROL XL) 100MG *XL* TAB PO SCH (09:07)
[2020-01-07] MEDS: MULTIVITAMINS/MINERALS THERAP 1 TAB PO SCH (09:08)
[2020-01-07] MEDS: THIAMINE 100 MG TAB PO SCH (09:08)
[2020-01-07] MEDS: amLODIPine 5 MG TAB PO SCH (09:08)
[2020-01-07] MEDS: FOLIC ACID 1 MG TAB PO SCH (09:08)
[2020-01-07] MEDS: HumaLOG INSULIN (NovoLOG) PER UNIT SC SCH ×2 (09:09→11:56)
--- NOTE | 2020-01-07 12:30 | DS.PDOC ---
Discharge Summary General Date of Admission Dec 31, 2019 at 14:34 Date of Discharge 01/07/2020 Attending Physician: RAMONA CAMARILLO MD Discharge Summary PROCEDURES PERFORMED DURING STAY: None ADMITTING DIAGNOSES: 1. Abdominal pain DISCHARGE DIAGNOSES: 1. C.diff colitis 2. Sepsis 2/2 C.diff colitis 3. Dehydration with hypotension 4. ANGELIQUE 5. DM type II 6. Hypomagnesemia, acute on chronic 2/2 to decreased PO, diarrhea and underlying alcohol abuse 7. Hyperammonemia, likely chronic 8. Pancreatic mass, pseudocyst vs. cystic neoplasm, with ongoing workup, i/s/o chronic pancreatitis 9. Alcoholic hepatitis 10. Chronic HTN 11. Alcohol abuse 12. Peripheral neuropathy 13. GERD 14. BPH 15. HLD 16. Acute kidney injury 16. Hyponatremia, acute 2/2 to hypovolemia 17. Hypokalemia, acute COMPLICATIONS/CHIEF COMPLAINT: Alcoholic Hepatitis, Hypotension. 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 The patient is a heavy drinker and drinks 1 pint of vodka a day and has done so for over 20 years. His last drink was on 12/26/2019, without tremoring, hallucinations, diaphoresis at presentation. HOSPITAL COURSE: In the emergency room WBC 6.5, with a 34 % bandemia, Na was 129, chloride low at 89, potassium low at 3.4 and creatinine was elevated at 2.15. Lactic acid elevated at 2.3, T bili 2.8, D bili 2.4, AST 534, ALP 193, lipase normal, CK-MB 1.9, troponin negative. The patient was given a total of over 3 L of normal saline for a blood pressure low at 88/36, all other vital signs were within normal limits. He was afebrile on exam. CT of the abdomen and pelvis showed a long segment of distal ileum (not terminal ileum) with thickening and surrounding inflammatory change, with mild dilatation, poss compatible with some type of inflammatory bowel disease, as well as hepatomegaly and fatty liver while CT chest without contrast was negative for acute findings. Blood pressure improved after aggressive fluid hydration the patient remained weak and he was admitted for persistent hypotension likely secondary to dehydration due to diarrhea, as well as SIRS likely 2/2 sepsis, alcoholic hepatitis, acute kidney injury likely prerenal cause. He ultimately was found to have C.diff colitis that improved tremendously with PO vancomycin, while his Angelique improved with hydration, alcoholic hepatitis improved with stopping alcohol consumption while in hospital. His sepsis resolved with antibiotics. Dr. Hdez (GI) was consulted and after CT A/P and abdominal US, recommended MRI of abdomen that for further assessing pancreatic cyst vs. neoplasm and due to size of cyst/mass and high risk features Dr. Hdez sent a high priority referral to [facility] GI clinic (where patient will be following up after discharge for GI issues) for Endoscopic US with FNA to further evaluate. If the patient does not hear back from [facility] in 2 weeks, he is to call Dr. Hdez's clinic ([phone]) and let them know. In the meantime, he was treated with PO vanc with resolution of diarrhea and will complete a course on discharge. The hypotension, sepsis, ANGELIQUE, hyponatremia, hypokalemia resolved by time of discharge. DISCHARGE MEDICATIONS: Please see below. ALLERGIES: Please see below. PHYSICAL EXAMINATION ON DISCHARGE: VITAL SIGNS: Please see below. CONSTITUTIONAL: No acute distress, sitting up in bed, AAO x 3 EYES: PERRLA, EOM intact HENT, MOUTH: Normocephalic, atraumatic, moist mucous membranes NECK: SUPPLE, no JVD, no lymphadenopathy, no carotid bruit CV: Regular rate and rhythm, S1S2 normal, no murmurs/rubs/gallops RESPIRATORY: Clear to auscultation bilaterally, no rales/rhonchi/wheezes GI: obese abd, BS positive in 4 quadrants, soft, nontender, nondistended, no rebound or guarding, no organomegaly MUSCULOSKELETAL: Normal ROM. No cyanosis, clubbing, swelling, joint deformity, extremity edema INTEGUMENTARY: Intact, no rashes, no lesions, no erythema NEUROLOGIC: Cranial Nerves II-XII are intact, no focal deficits PSYCHIATRIC: Flat affect LABORATORY DATA: Please see below. IMAGING: MRI abd 01/01/20: Cystic mass anterior head of pancreas which measures 6.2 x 3.7 cm. The wall is mildly irregular and mildly enhances. There is mild dilatation of the distal pancreatic duct. Recent CT exam showed tiny pancreatic calcifications in the body of the pancreas indicating chronic pancreatitis. This cystic mass could possibly represent a benign pseudocyst. However cystic neoplasm needs to be excluded. US abd: The gallbladder appears unremarkable, with no stones identified. The sonographic Hooper's sign is reported to be (-). The CBD is mildly prominent (5-6 mm diameter). No ductal stone is seen. Fatty liver infiltration. Indeterminate hypoechoic (cystic) mass at the pancreatic head / proximal pancreatic body region (also seen on recent CT scan) (4.6 cm avg. size). A pancreatic cystic mass of this size, in a patient of this age, usually warrants further evaluation. Can consider: endoscopic ultrasound; fine needle aspiration; MRI scan; enhanced CT scan with pancreas protocol. Consultation with GI and/or surgical service can also be considered initially, to help in further diagnostic and management plan. CT abd/pelvis: There is a long segment of distal ileum (not terminal ileum) which demonstrates wall thickening and surrounding inflammatory change, with mild dilatation. This is compatible with some type of inflammatory bowel disease. Large right inguinal hernia containing noninflamed fat as well as a portion of the urinary bladder. Tiny pancreatic calcifications compatible with prior pancreatitis. Cystic mass head of the pancreas 5 cm in diameter. Hepatomegaly with diffuse fatty infiltration of the liver. Small hiatal hernia. CT chest without contrast: Fibro atelectatic changes in the dependent lungs with no acute abnormalities. PROGNOSIS: Good with abstinence from alcohol consumption and close MD follow up ACTIVITY: As tolerated DIET: Regular DISCHARGE PLAN: Home with [facility] consult in place DISPOSITION: Home DISCHARGE INSTRUCTIONS: 1. Please abstain from alcohol consumption 2. Please complete the vancomycin course 3. Please follow up with GI at [facility] per Dr. Hdez's referral. ITEMS TO FOLLOWUP ON ON OUTPATIENT: 1. C.diff colitis 2. Pancreatic mass 3. Alcoholic hepatitis 4. Fatty liver 5. Alcohol use disorder DISCHARGE CONDITION: Stable TIME SPENT ON DISCHARGE: 54 minutes. Vital Signs/I&Os Vital Signs Date Time Temp Pulse Resp B/P (MAP) Pulse Ox O2 Delivery O2 Flow Rate FiO2 01/07/20 09:06 83 153/93 01/07/20 06:00 98.0 16 97 Room Air 01/01/20 10:00 0.0 I&O- Last 24 Hours up to 6 AM 01/07/20 06:00 Intake Total 1220 ml Balance 1220 ml Laboratory Data Labs 24H Laboratory Tests 2 01/06/20 16:48: Bedside Glucose (Misc Panel) 172H 01/06/20 20:11: Bedside Glucose (Misc Panel) 177H 01/07/20 05:59: Nucleated Red Blood Cells % (auto) 0.0, Anion Gap 13, Glomerular Filtration Rate > 60.0, Calcium Level 7.9L, Magnesium Level 1.4L, Total Bilirubin 0.7, Aspartate Amino Transf (AST/SGOT) 58H, Alanine Aminotransferase (ALT/SGPT) 54, Alkaline Phosphatase 92, Ammonia 60H, Total Protein 5.6L, Albumin 2.3L, Albumin/Globulin Ratio 0.7 01/07/20 11:36: Bedside Glucose (Misc Panel) 172H CBC/BMP Laboratory Tests 01/07/20 05:59 FSBS Laboratory Tests Test 01/06/20 16:48 01/06/20 20:11 01/07/20 11:36 Range/Units Bedside Glucose (Misc Panel) 172 177 172 80-115 MG/DL Microbiology Microbiology 12/31/19 Blood Culture - Final, Complete NO GROWTH AFTER 5 DAYS 12/31/19 Blood Culture - Final, Complete NO GROWTH AFTER 5 DAYS 12/31/19 Respiratory Virus Panel (PCR) (ESTEFANIA) - Final, Complete 12/31/19 Campylobacter (PCR) - Final, Complete 12/31/19 Clostridium difficile Toxin A&B PCR - Final, Complete 12/31/19 Plesiomonas shigelloides (PCR) - Final, Complete 12/31/19 Salmonella (PCR)(ESTEFANIA) - Final, Complete 12/31/19 Vibrio Species (PCR) - Final, Complete 12/31/19 Vibrio Cholerae (PCR) - Final, Complete 12/31/19 Yersinia enterocolitica (PCR) - Final, Complete 12/31/19 Enteroaggregative E. coli (PCR) - Final, Complete 12/31/19 Enteropathogenic E. coli (PCR) - Final, Complete 12/31/19 Enterotoxigenic E. coli (PCR) - Final, Complete 12/31/19 E. coli Shiga-like Toxin (PCR) - Final, Complete 12/31/19 Escherichia coli 0157 (PCR) - Final, Complete 12/31/19 Enteroinvasive E. coli/Shigella PCR - Final, Complete 12/31/19 Cryptosporidium (PCR) - Final, Complete 12/31/19 Cyclospora cayetanensis (PCR) - Final, Complete 12/31/19 Entamoeba histolytica (PCR) - Final, Complete 12/31/19 Giardia lamblia (PCR) - Final, Complete 12/31/19 Adenovirus Type F 40/41 (PCR) - Final, Complete 12/31/19 Astrovirus (PCR) - Final, Complete 12/31/19 Norovirus GI/GII (PCR) - Final, Complete 12/31/19 Rotavirus A (PCR) - Final, Complete 12/31/19 Sapovirus I/II/IV/V (PCR) - Final, Complete Discharge Medications Scheduled Amlodipine Besylate (Amlodipine Besylate) 5 Mg Tablet, 5 MG PO DAILY, (Reported) Aripiprazole (Aripiprazole) 5 Mg Tablet, 5 MG PO QHS, (Reported) Escitalopram Oxalate (Escitalopram Oxalate) 20 Mg Tablet, 20 MG PO DAILY, (Reported) Fenofibrate Nanocrystallized (Fenofibrate) 145 Mg Tablet, 145 MG PO QHS, (Reported) Gabapentin (Gabapentin) 300 Mg Capsule, 300 MG PO QAM, (Reported) Gabapentin (Gabapentin) 300 Mg Capsule, 600 MG PO QHS, (Reported) Insulin Detemir (Levemir Flextouch) 100 Unit/1 Ml Insuln.pen, 45 UNITS SQ BID, ( Reported) Insulin Lispro (Humalog Kwikpen U-100) 100 Unit/1 Ml Insuln.pen, 1 DOSE SQ AC, (Reported) PER SLIDING SCALE Metoprolol Succinate (Metoprolol Succinate) 100 Mg Tab.er.24h, 100 MG PO DAILY, (Reported) Olmesartan Medoxomil (Olmesartan Medoxomil) 40 Mg Tablet, 40 MG PO DAILY, (Reported) Pantoprazole Sodium (Pantoprazole Sodium) 40 Mg Tablet.dr, 40 MG PO DAILY, (Reported) Prazosin Hcl (Prazosin HCl) 2 Mg Capsule, 2 MG PO QHS, (Reported) Verapamil HCl (Verapamil HCl) 360 Mg Cap24h.pel, 360 MG PO DAILY, (Reported) hydrALAZINE HCL (Hydralazine HCl) 100 Mg Tablet, 100 MG PO BID, (Reported) Scheduled PRN Tadalafil (Tadalafil) 20 Mg Tablet, 20 MG PO DAILY PRN for ERECTILE DYSFUNCTION, (Reported) Allergies Coded Allergies: benazepril (Verified Allergy, Severe, ANGIOEDEMA, 12/31/19) ENVIROMENTAL (Verified Allergy, Unknown, 06/28/04) RAMONA CAMARILLO MD Jan 07, 2020 12:30
[2020-01-07] MEDS ORDERED: VITMTA PO (12:39)
[2020-01-07] MEDS ORDERED: MAG400TA PO (12:39)
[2020-01-07] MEDS ORDERED: FOLI1TAB11 PO (12:39)
[2020-01-07] MEDS ORDERED: FIRV50SO PO (12:39)
[2020-01-07] MEDS ORDERED: THIA100TA PO (12:39)
[2020-01-07] MEDS ORDERED: KLOR10TA76 PO (12:39)
[2020-01-08 21:04] LABS: HEMOGLOBIN A1c 7.1 %
--- NOTE | 2020-01-13 09:29 | CR.PDOC ---
General Date of Consultation: Dec 31, 2019 Referring Provider: Caroline Edmonds MD Attending Physician: HARVEY HARPER MD Consultation Primary physician/ hospitalist: - Dr. Edmonds Reason for consult: - Abnormal liver tests. HPI: 59-year-old male patient with HTN, heavy alcohol use, peripheral neuropathy, diabetes mellitus type 2, GERD, BPH, erectile dysfunction was admitted to [facility] for increased weakness and diarrhea since 12/28/2019. patient was diagnosed with C. difficile diarrhea and also noted to have AMS secondary to low glucose levels during the hospitalizatoin. GI was consulted for abnormal liver tests. Patient upon examination able to answer simple questions and unable to provide detailed history. Most of the history was obtained from EMR. Patient symptoms started with multiple loose stools, acute onset and subsequent feeling weak and has a fall as well. Patient was reported to have fever at home. Patient reports he stopped drinking atleast 1 week prior to hospitalizatio nbut before that he used to drink atleast 1pint of vodka daily. Currently patient is AO x 3, denies any abdominal pain, not febrile and not tremulous. Off note: In the emergency room whork up showed - WBC 6.5,. Sodium was low at 129, chloride low at 89, potassium low at 3.4. Creatinine elevated at 2.15, creatinine is normal at baseline. Lactic acid elevated at 2.3, T bili 2.8, D bili 2.4, AST 534, ALP 193, lipase normal, CK-MB 1.9, troponin negative. CT of the abdomen and pelvis showed a long segment of distal ileum (not terminal ileum) which demonstrates wall thickening and surrounding inflammatory change, with mild dilatation, poss compatible with some type of inflammatory bowel disease. Hepatomegaly and fatty liver seen. CT chest without contrast: neg for acute findings. Pertinent negative GI symptoms: Patient denies fever, sick contacts, recent travel, nausea, vomiting, early satiety or unintentional weight loss. No history of hematemesis, melena or hematochezia. Patient reports regular bowel movements. Review of Systems: GI: as stated above CVS: No chest pain, No palpitations, No leg swelling. RS: No Shortness of breath, No Wheezing, no cough [employer]: No dizziness, No motor weakness, No sensory problems Hematology: No bruising, No gum bleeding, Musculoskeletal: No joint pain, ambulating well. Skin: No rash : No hematuria, No burning sensation of the urine ENT: No ear discharge/ pain, No dysphagia. Eyes: No photophobia. Jaundice Home medications: reviewed. Antithrombotic agents: reviewed. Medical h/o: As above. Surgical h/o: None on abdomen. Social h/o: Alcohol: As above. smoking: smokes cigars, IVDA/ drugs: Denies . Family h/o of GI cancers - None Prior Endoscopies: Colonoscopy for screening in 2011 -- by Dr. Cuellar --completed till TI, Noted few small polyps- recommended surveillance in 5 years. Prior GI evaluations: Follows with Dr. Cuellar. Exam: Vitals: reviewed General: Alert and oriented x 3, not in distress HEENT: NO pallor, no icterus. Normal oropharynx, NO cervical lymph nodes. Chest: symmetric with bilateral clear air entry, CVS: S1, S2 heard, normal, no murmurs . Abdomen: non-distended, no surgical scars, soft, non-tender, no palpable masses, normal bowel sounds heard. Rectal exam: Patient refused / Deferred at this time in view of scheduled colonoscopy. Extremities: no pedal edema, pulses palpable. [employer]: no focal motor or sensory deficits. Moves all extremities Skin: no rash. Labs: reviewed. Imaging: reviewed. Impression: - Acute onset diarrhea with abnormal CT scan showing distal ileal thickening and inflammation -- DDx-- acute infectiousenterocolitis vs C. difficile infection. - Abnormal liver panel , with h/o heavy alcohol use and Ultrasound abdomen showing no gallstones, no CBD stone and fatty liver -- Likely alcoholic liver disease vs Alcoholic hepatitis. ( DF < 32) -- Pancreatic calcifications in CT scan and suspected pancreatic cystic mass in ultrasound abdomen and h/o prior heavy alcohol use -- DDx- Chronic pancreatitis with pseudocyst vs r/o other pancreatic cystic lesions. Recommendations: - Patient educated about the test results, possible differential diagnoses and All questions answered. - Advance diet as tolerated. - Thiamine and folic acid - AVOID NSAIDs and complete cessation of alcohol and smoking. - Treatment for C. difficile with oral vancomycin course for 10 - 14 days. - Monitor renal function and treatment as per priamry team - Obtain MRI pancreatitis protocol for further evaluation of the pancreas and biliary tree. - Mild elevated Ammonia level is unlikely the cause for AMS as the mental status returned to normal after therapy of electrolyte abnormalities and low glucose. So at this time will hold off on lactulose as patient is currentlybeing treated for C.difficile. - At this time due to DF below low and infection, patient would not benefit from steroids. - Based on the MRI abdomen, will consider elective EUS. Plan of care discussed with patient and primary team. Patient verbalized understanding and agreed with the plan. Vital Signs/I&O Vital Signs Date Time Temp Pulse Resp B/P (MAP) Pulse Ox O2 Delivery O2 Flow Rate FiO2 12/31/19 16:00 98 114/60 12/31/19 15:45 97.7 19 93 Nasal Cannula 2.0 Laboratory Data Labs 24H Laboratory Tests 2 12/31/19 07:37: Neutrophils (%) (Auto) , Nucleated Red Blood Cells % (auto) 1.7H, Neutrophils 24L, Band Neutrophils 34H, Lymphocytes (Manual) 33, Monocytes (Manual) 4, Eosinophils (Manual) 2, Metamyelocytes 2H, Atypical Lymphocytes 1, Red Blood Cell Morphology NORMAL, Platelet Estimate NORMAL, Prothrombin Time 13.4, Prothromb Time International Ratio 1.00, Activated Partial Thromboplast Time 26.6, Anion Gap 13, Glomerular Filtration Rate 33.5L, Lactic Acid Level 2.3*H, Calcium Level 11.0H, Total Bilirubin 2.8H, Direct Bilirubin 2.4H, Aspartate Amino Transf (AST/SGOT) 534H, Alanine Aminotransferase (ALT/SGPT) 193H, Alkaline Phosphatase 208H, Total Creatine Kinase 877H, Creatine Kinase MB 11.9H, Creatine Kinase MB Relative Index 1.36, Troponin I 0.04, Total Protein 6.5, Albumin 2.9L, Albumin/Globulin Ratio 0.8, Amylase Level 72, Lipase 211, Ethyl Alcohol Level 0.003 12/31/19 07:48: Bedside Glucose (Misc Panel) 90 12/31/19 09:07: Urine Color DAVID, Urine Appearance HAZY, Urine pH 5.0, Urine Specific [place] 1.018, Urine Protein 1+H, Urine Glucose (UA) NEGATIVE, Urine Ketones NEGATIVE, Urine Blood 2+H, Urine Nitrite NEGATIVE, Urine Bilirubin NEGATIVE, Urine Urobilinogen 4.0H, Urine Leukocyte Esterase NEGATIVE, Urine WBC (Auto) 2, Urine RBC (Auto) 1, Urine Hyaline Casts (Auto) 0, Urine Bacteria (Auto) NEGATIVE, Urine Squamous Epithelial Cells 0, Urine Mucus (Auto) SMALL, Urine Sperm (Auto) 12/31/19 12:46: Bedside Glucose (Misc Panel) 95 12/31/19 18:18: Bedside Glucose (Misc Panel) 18*L 12/31/19 18:24: Bedside Glucose (Misc Panel) 186H CBC/BMP Laboratory Tests 12/31/19 07:37 Microbiology Microbiology 12/31/19 Blood Culture, Received Pending 12/31/19 Blood Culture, Received Pending 12/31/19 Respiratory Virus Panel (PCR) (ESTEFANIA) - Final, Complete 12/31/19 Campylobacter (PCR), Received Pending 12/31/19 Clostridium difficile Toxin A&B PCR, Received Pending 12/31/19 Plesiomonas shigelloides (PCR), Received Pending 12/31/19 Salmonella (PCR)(ESTEFANIA), Received Pending 12/31/19 Vibrio Species (PCR), Received Pending 12/31/19 Vibrio Cholerae (PCR), Received Pending 12/31/19 Yersinia enterocolitica (PCR), Received Pending 12/31/19 Enteroaggregative E. coli (PCR), Received Pending 12/31/19 Enteropathogenic E. coli (PCR), Received Pending 12/31/19 Enterotoxigenic E. coli (PCR), Received Pending 12/31/19 E. coli Shiga-like Toxin (PCR), Received Pending 12/31/19 Escherichia coli 0157 (PCR), Received Pending 12/31/19 Enteroinvasive E. coli/Shigella PCR, Received Pending 12/31/19 Cryptosporidium (PCR), Received Pending 12/31/19 Cyclospora cayetanensis (PCR), Received Pending 12/31/19 Entamoeba histolytica (PCR), Received Pending 12/31/19 Giardia lamblia (PCR), Received Pending 12/31/19 Adenovirus Type F 40/41 (PCR), Received Pending 12/31/19 Astrovirus (PCR), Received Pending 12/31/19 Norovirus GI/GII (PCR), Received Pending 12/31/19 Rotavirus A (PCR), Received Pending 12/31/19 Sapovirus I/II/IV/V (PCR), Received Pending Allergies Coded Allergies: benazepril (Verified Allergy, Severe, ANGIOEDEMA, 12/31/19) ENVIROMENTAL (Verified Allergy, Unknown, 06/28/04) Home Medications Scheduled Amlodipine Besylate (Amlodipine Besylate) 5 Mg Tablet, 5 MG PO DAILY, (Reported) Aripiprazole (Aripiprazole) 5 Mg Tablet, 5 MG PO QHS, (Reported) Escitalopram Oxalate (Escitalopram Oxalate) 20 Mg Tablet, 20 MG PO DAILY, (Reported) Fenofibrate Nanocrystallized (Fenofibrate) 145 Mg Tablet, 145 MG PO QHS, (Reported) Folic Acid (Folic Acid) 1 Mg Tablet, 1 MG PO DAILY for 30 Days, #30 Gabapentin (Gabapentin) 300 Mg Capsule, 300 MG PO QAM, (Reported) Gabapentin (Gabapentin) 300 Mg Capsule, 600 MG PO QHS, (Reported) Insulin Detemir (Levemir Flextouch) 100 Unit/1 Ml Insuln.pen, 45 UNITS SQ BID, (Reported) Insulin Lispro (Humalog Kwikpen U-100) 100 Unit/1 Ml Insuln.pen, 1 DOSE SQ AC, (Reported) PER SLIDING SCALE Magnesium Oxide (Magnesium Oxide) 400 Mg Tablet, 800 MG PO BID for 30 Days, #120 Metoprolol Succinate (Metoprolol Succinate) 100 Mg Tab.er.24h, 100 MG PO DAILY, (Reported) Multivitamins (Thera M Plus Tablet) 1 Each Tablet, 1 TAB PO DAILY for 30 Days, #30 Olmesartan Medoxomil (Olmesartan Medoxomil) 40 Mg Tablet, 40 MG PO DAILY, (Reported) Pantoprazole Sodium (Pantoprazole Sodium) 40 Mg Tablet.dr, 40 MG PO DAILY, (Reported) Potassium Chloride (Klor-Con M10) 10 Meq Tab.er.prt, 40 MEQ PO DAILY for 10 Days, #40 Prazosin Hcl (Prazosin HCl) 2 Mg Capsule, 2 MG PO QHS, (Reported) Thiamine Hcl (Vitamin B-1) 100 Mg Tablet, 100 MG PO DAILY for 30 Days, #30 Vancomycin HCl (Firvanq) 50 Mg/1 Ml Soln.recon, 125 MG PO Q6H for 4 Days, #100 Verapamil HCl (Verapamil HCl) 360 Mg Cap24h.pel, 360 MG PO DAILY, (Reported) hydrALAZINE HCL (Hydralazine HCl) 100 Mg Tablet, 100 MG PO BID, (Reported) Scheduled PRN Tadalafil (Tadalafil) 20 Mg Tablet, 20 MG PO DAILY PRN for ERECTILE DYSFUNCTION, (Reported) HARVEY HARPER MD Dec 31, 2019 18:43
== END 2020-01-07 14:39 | disposition home or self-care (01) | DRG 872 ==
LOC: EDBD 07:12 → M ED 07:12 → M ED INP 14:34 → ENRESERV 14:48 → M PCU 15:41 → M ICU 18:41 → M MSPAV 01-04 10:48
PROVIDERS: ADMIT Internal Medicine; ATTEND Internal Medicine
DX: A41.9 Sepsis, unspecified organism (principal); N17.9 Acute kidney failure, unspecified; E72.20 Disorder of urea cycle metabolism, unspecified; A04.72 Enterocolitis due to Clostridium difficile, not specified as recurrent; E87.1 Hypo-osmolality and hyponatremia; K86.0 Alcohol-induced chronic pancreatitis; K86.2 Cyst of pancreas; E86.0 Dehydration; F10.10 Alcohol abuse, uncomplicated; E11.42 Type 2 diabetes mellitus with diabetic polyneuropathy; K21.9 Gastro-esophageal reflux disease without esophagitis; N40.0 Benign prostatic hyperplasia without lower urinary tract symptoms; N52.9 Male erectile dysfunction, unspecified; I10 Essential (primary) hypertension; K86.89 Other specified diseases of pancreas; K70.10 Alcoholic hepatitis without ascites; E11.649 Type 2 diabetes mellitus with hypoglycemia without coma; K70.0 Alcoholic fatty liver; E78.5 Hyperlipidemia, unspecified; E87.6 Hypokalemia; E83.42 Hypomagnesemia; Z96.642 Presence of left artificial hip joint; Z20.828 Contact with and (suspected) exposure to other viral communicable diseases

== ENCOUNTER → 2020-01-24 | Outpatient (REF) | payer OTHER ==
[~2020-01-24] MED LIST changes: +AMLO1TAB24 PO; +ARIP1TAB6 PO; +ESCI20TA PO; +FENO145T7 PO; +FIRV50SO PO; +FOLI1TAB11 PO; +GABA-843 PO; +HUMA100I5 SQ; +HYDR100T PO; +KLOR10TA76 PO; +LEVE1INJ5 SQ; +MAG400TA PO; +METO1TAB33 PO; +OLME40TA PO; +PANT40TA29 PO; +PRAZ2CAP PO; +TADA20TA PO; +THIA100TA PO; +VERA360C PO; +VITMTA PO
== END ==
LOC: M SFHCPLAZ 13:15
PROVIDERS: ATTEND Nurse Practitioner Adult Health
DX: R19.7 Diarrhea, unspecified (principal)

== ENCOUNTER → 2020-03-11 | Outpatient (REF) | payer OTHER ==
[~2020-03-11] MED LIST changes: -ESCI20TA PO; +ESCI20TA16 PO; +GABA-282 PO; -GABA-843 PO; -MAG400TA PO; +MAGN400T35 PO
[2020-03-11 11:10] LABS: HEMATOCRIT 42.1 % (42.0-52.0); HEMOGLOBIN 13.5 g/dl (13.5-17.5); MEAN CORPUSCULAR HEMOGLOBIN 31.1 pg (27.0-33.0); MEAN CORPUSCULAR HGB CONC 32.1 g/dl (32.0-36.5); PLATELET COUNT, AUTOMATED 310 10^3/uL (150-450); RED BLOOD COUNT 4.34 10^6/uL (4.30-6.10); WHITE BLOOD COUNT 9.8 10^3/uL (4.0-10.0)
[2020-03-11 11:42] LABS: ALBUMIN 3.8 GM/DL (3.2-5.2); ALT/SGPT 38 U/L (12-78); BILIRUBIN,TOTAL 0.4 MG/DL (0.2-1.0); BLOOD UREA NITROGEN 25 MG/DL (7-18); CALCIUM LEVEL 9.6 MG/DL (8.8-10.2); CARBON DIOXIDE LEVEL 28 MEQ/L (21-32); CHLORIDE LEVEL 105 MEQ/L (98-107); CHOLESTEROL LEVEL 122 MG/DL (<200); CHOLESTEROL RISK RATIO 3.485 (<5); CREATININE FOR GFR 1.15 MG/DL (0.70-1.30); GLOMERULAR FILTRATION RATE > 60.0 (>49); GLUCOSE, FASTING 175 MG/DL (70-100); HDL CHOLESTEROL 35 MG/DL (>40); LDL CHOLESTEROL 54 MG/DL (<100); NON-HDL-C 87 MG/DL; POTASSIUM SERUM 4.1 MEQ/L (3.5-5.1); SODIUM LEVEL 141 MEQ/L (136-145); TOTAL PROTEIN 7.2 GM/DL (6.4-8.2); TRIGLYCERIDES LEVEL 167 MG/DL (<150)
== END ==
LOC: M SFHCPLAZ 08:21
PROVIDERS: ATTEND Nurse Practitioner Adult Health
DX: I10 Essential (primary) hypertension (principal); E11.9 Type 2 diabetes mellitus without complications; E78.2 Mixed hyperlipidemia

== ENCOUNTER → 2020-05-29 | Outpatient (CLI) | payer OTHER ==
[2020-05-29 11:01] LABS: BLOOD UREA NITROGEN 21 MG/DL (7-18); CALCIUM LEVEL 9.7 MG/DL (8.8-10.2); CARBON DIOXIDE LEVEL 29 MEQ/L (21-32); CHLORIDE LEVEL 106 MEQ/L (98-107); CREATININE FOR GFR 0.83 MG/DL (0.70-1.30); GLOMERULAR FILTRATION RATE > 60.0 (>49); GLUCOSE, FASTING 228 MG/DL (70-100); POTASSIUM SERUM 3.6 MEQ/L (3.5-5.1); SODIUM LEVEL 140 MEQ/L (136-145)
== END ==
LOC: M PLALAB 08:09
PROVIDERS: ATTEND Internal Medicine Gastroenterology
DX: K86.1 Other chronic pancreatitis (principal); K22.10 Ulcer of esophagus without bleeding; K86.89 Other specified diseases of pancreas

== ENCOUNTER → 2020-06-05 | Outpatient (CLI) | payer OTHER ==
[~2020-06-05] MED LIST changes: +PROHANCE 279.3MG/ML 15ML VIAL As Ordered ONE; +PROHANCE 279.3MG/ML 5ML VIAL As Ordered ONE
--- NOTE | 2020-06-05 11:17 | REP ---
INDICATION: K86.1. MRCP exam. Reassess pancreatic pseudocysts and pancreatic ductal dilation. COMPARISON: Comparison CT study 31 December 2019.. TECHNIQUE: Axial and coronal T2 weighted scans are acquired. MRCP acquisition is acquired and maximum intensity projection images are generated. Source coronal images are reviewed. FINDINGS: No filling defect is seen within the T2 hyperintense bile in the gallbladder. The common bile duct measures 6.5 mm in greatest diameter. There is no evidence of choledocholithiasis. The intrahepatic bile ducts are not felt to be dilated. There is a T2 hyperintense area in the left lobe of the liver measuring 1.1 cm consistent with a liver cyst. There is a 2nd smaller T2 hyperintense area also felt to be consistent with a cyst. This measures 6 mm in size and is also in the left lobe. There is a tiny T2 hyperintense area in the right lobe consistent with a cyst. There is a large cystic lesion in the pancreatic head again noted measuring 5.1 cm by 3.9 cm. This is essentially unchanged from comparison CT. The main pancreatic duct is moderately dilated in the tail of the pancreas, 7 mm in greatest diameter. IMPRESSION: 5.1 cm cystic lesion in the head of the pancreas consistent with pseudocyst. Moderate distension of the main pancreatic duct in the tail of the pancreas. No biliary ductal dilation is observed. There are several small hepatic cysts. <Electronically signed by Akbar Khan > 06/05/20 1113
--- NOTE | 2020-06-05 11:26 | REP ---
INDICATION: MCRP. MRI abdomen pancreas protocol without and with IV contrast. See separate accession number for MRCP protocol report. COMPARISON: Comparison is made with CT study abdomen and pelvis 31 December 2019.. TECHNIQUE: Axial and coronal T1 and T2 weighted scans include spin spin echo, fast spin echo, gradient echo, in and out of phase, and pre and dynamic postcontrast T1 fat sat images. Gadolinium enhancement dose is 20 mL of intravenous ProHance. FINDINGS: The liver and the spleen are normal in size. The left lobe of the liver is a markedly atrophic and contains 2 very small liver cysts. The largest of these measures 9 mm. The left hepatic bile duct is normal in caliber. There is no evidence of intrahepatic biliary ductal dilation. There is a tiny cyst in the right lobe of the liver inferiorly and another tiny cyst near the dome of the liver in the right lobe. The right lobe is otherwise homogeneous. The common bile duct is normal in caliber 6 mm. No filling defect is seen in the distal common bile duct or in the gallbladder. SP the pancreas is atrophic in its body and tail and the main pancreatic duct is dilated up to 6-7 mm in size. There is a cystic mass in the head of the pancreas as seen on recent CT study. This measures 5.8 x 4.2 x 4.6 cm. No other pancreatic lesion is seen. This does not enhance postcontrast. There is some mild nodular enlargement of the left adrenal gland with signal dropout on out of phase imaging indicating fat content. This is consistent with a small benign adrenal adenoma on the left. There is also slight signal loss in the liver parenchyma on out of phase imaging consistent with fatty infiltration of the liver. Small parapelvic cysts are noted in the kidneys. Dynamically acquired sequential postcontrast images show no significant additional abnormality. IMPRESSION: 1. 5.8 cm cystic lesion in the head of the pancreas again noted unchanged from comparison CT study. This is associated with moderate distention of the main pancreatic duct in the body and tail region. 2. Chronic advanced atrophy of the left lobe of the liver with a 2 small hepatic parenchymal cysts in the left lobe. There are 2 tiny right lobe cysts. 3. Small benign left adrenal adenoma. 4. No evidence of biliary ductal dilation or biliary stone disease. <Electronically signed by Akbar Khan > 06/05/20 [id number]
== END ==
LOC: M RAD 09:41
PROVIDERS: ATTEND Internal Medicine Gastroenterology
DX: K86.1 Other chronic pancreatitis (principal); K22.10 Ulcer of esophagus without bleeding; K86.3 Pseudocyst of pancreas

== ENCOUNTER → 2020-06-30 | Outpatient (REF) | payer OTHER ==
[~2020-06-30] MED LIST changes: -PROHANCE 279.3MG/ML 15ML VIAL As Ordered ONE; -PROHANCE 279.3MG/ML 5ML VIAL As Ordered ONE
[2020-06-30 13:41] LABS: HEMATOCRIT 44.6 % (42.0-52.0); HEMOGLOBIN 14.2 g/dl (13.5-17.5); MEAN CORPUSCULAR HEMOGLOBIN 30.1 pg (27.0-33.0); MEAN CORPUSCULAR HGB CONC 31.8 g/dl (32.0-36.5); MEAN CORPUSCULAR VOLUME 94.7 fl (80.0-96.0); PLATELET COUNT, AUTOMATED 208 10^3/uL (150-450); RED BLOOD COUNT 4.71 10^6/uL (4.30-6.10); WHITE BLOOD COUNT 5.7 10^3/uL (4.0-10.0)
[2020-06-30 13:57] LABS: HEMOGLOBIN A1c 7.7 %
[2020-06-30 14:19] LABS: CREATININE, URINE 95.7 MG/DL; MALB URINE SIEMENS 7.6 MG/L; MAU/CREAT RATIO 7.9 MCG/MG (0.0-30.0)
[2020-06-30 14:21] LABS: ALBUMIN 3.6 GM/DL (3.2-5.2); ALT/SGPT 35 U/L (12-78); BILIRUBIN,TOTAL 0.4 MG/DL (0.2-1.0); BLOOD UREA NITROGEN 21 MG/DL (7-18); CALCIUM LEVEL 8.8 MG/DL (8.8-10.2); CARBON DIOXIDE LEVEL 30 MEQ/L (21-32); CHLORIDE LEVEL 105 MEQ/L (98-107); CHOLESTEROL LEVEL 110 MG/DL (<200); GLOMERULAR FILTRATION RATE > 60.0 (>49); GLUCOSE, FASTING 150 MG/DL (70-100); HDL CHOLESTEROL 50 MG/DL (>40); LDL CHOLESTEROL 44 MG/DL (<100); NON-HDL-C 60 MG/DL; POTASSIUM SERUM 4.1 MEQ/L (3.5-5.1); SODIUM LEVEL 142 MEQ/L (136-145); TOTAL PROTEIN 6.8 GM/DL (6.4-8.2); TRIGLYCERIDES LEVEL 78 MG/DL (<150)
== END ==
LOC: M SFHCPLAZ 08:41
PROVIDERS: ATTEND Nurse Practitioner Adult Health
DX: E78.2 Mixed hyperlipidemia (principal); E11.9 Type 2 diabetes mellitus without complications; I10 Essential (primary) hypertension

== ENCOUNTER → 2020-09-10 | Outpatient (CLI) | payer OTHER ==
[2020-09-10 17:39] LABS: HEMATOCRIT 33.6 % (42.0-52.0); MEAN CORPUSCULAR HEMOGLOBIN 31.3 pg (27.0-33.0); MEAN CORPUSCULAR HGB CONC 32.7 g/dl (32.0-36.5); MEAN CORPUSCULAR VOLUME 95.7 fl (80.0-96.0); PLATELET COUNT, AUTOMATED 300 10^3/uL (150-450); RED BLOOD COUNT 3.51 10^6/uL (4.30-6.10); WHITE BLOOD COUNT 6.5 10^3/uL (4.0-10.0)
[2020-09-10 18:05] LABS: ALT/SGPT 36 U/L (12-78); BILIRUBIN,TOTAL 0.5 MG/DL (0.2-1.0); BLOOD UREA NITROGEN 13 MG/DL (7-18); CALCIUM LEVEL 8.6 MG/DL (8.8-10.2); CARBON DIOXIDE LEVEL 29 MEQ/L (21-32); CHLORIDE LEVEL 108 MEQ/L (98-107); CREATININE FOR GFR 0.85 MG/DL (0.70-1.30); FERRITIN 199 NG/ML (26-388); GLOMERULAR FILTRATION RATE > 60.0 (>49); GLUCOSE, FASTING 88 MG/DL (70-100); IRON (FE) 26 UG/DL (65-175); MAGNESIUM LEVEL 1.4 MG/DL (1.8-2.4); SODIUM LEVEL 141 MEQ/L (136-145); TOTAL IRON BINDING CAPACITY 324 UG/DL (250-450); TOTAL PROTEIN 6.4 GM/DL (6.4-8.2)
== END ==
LOC: M PLALAB 15:07
PROVIDERS: ATTEND Nurse Practitioner Adult Health
DX: I10 Essential (primary) hypertension (principal); E11.9 Type 2 diabetes mellitus without complications; R79.0 Abnormal level of blood mineral; Z13.29 Encounter for screening for other suspected endocrine disorder

== ENCOUNTER → 2020-10-12 | Outpatient (CLI) | payer OTHER ==
[2020-10-12 10:28] LABS: HEMOGLOBIN 12.1 g/dl (13.5-17.5); MEAN CORPUSCULAR HEMOGLOBIN 31.3 pg (27.0-33.0); MEAN CORPUSCULAR HGB CONC 32.7 g/dl (32.0-36.5); MEAN CORPUSCULAR VOLUME 95.6 fl (80.0-96.0); PLATELET COUNT, AUTOMATED 263 10^3/uL (150-450); RED BLOOD COUNT 3.87 10^6/uL (4.30-6.10); WHITE BLOOD COUNT 5.1 10^3/uL (4.0-10.0)
[2020-10-12 10:54] LABS: ALBUMIN 3.1 GM/DL (3.2-5.2); ALT/SGPT 23 U/L (12-78); BILIRUBIN,TOTAL 0.4 MG/DL (0.2-1.0); BLOOD UREA NITROGEN 12 MG/DL (7-18); CARBON DIOXIDE LEVEL 26 MEQ/L (21-32); CHLORIDE LEVEL 110 MEQ/L (98-107); CREATININE FOR GFR 0.79 MG/DL (0.70-1.30); GLOMERULAR FILTRATION RATE > 60.0 (>49); GLUCOSE, FASTING 202 MG/DL (70-100); IRON (FE) 51 UG/DL (65-175); MAGNESIUM LEVEL 1.4 MG/DL (1.8-2.4); PERCENT SATURATION 11.5 % (19.7-50.0); POTASSIUM SERUM 4.3 MEQ/L (3.5-5.1); SODIUM LEVEL 140 MEQ/L (136-145); TOTAL IRON BINDING CAPACITY 445 UG/DL (250-450); TOTAL PROTEIN 6.3 GM/DL (6.4-8.2)
[2020-10-12 11:08] LABS: HEMOGLOBIN A1c 7.2 %
== END ==
LOC: M PLALAB 08:11
PROVIDERS: ATTEND Nurse Practitioner Adult Health
DX: E11.9 Type 2 diabetes mellitus without complications (principal)

== ENCOUNTER → 2020-10-30 | Outpatient (CLI) | payer OTHER ==
[~2020-10-30] MED LIST changes: -KLOR10TA76 PO; +POTA-136 PO
== END ==
LOC: M RAD 11:14
PROVIDERS: ATTEND Otolaryngology
DX: M54.2 Cervicalgia (principal)

== ENCOUNTER → 2020-11-13 | Outpatient (CLI) | payer OTHER ==
[~2020-11-13] MED LIST changes: +ISOVUE-370 76% 100ML VIAL As Ordered ONE
--- NOTE | 2020-11-13 10:22 | REPVR ---
PROCEDURE INFORMATION: Exam: CT Neck With Contrast Exam date and time: 11/13/2020 9:55 AM Age: 60 years old Clinical indication: Neck pain; Additional info: Cervicalgia TECHNIQUE: Imaging protocol: Computed tomography images of the neck with contrast. Radiation optimization: All CT scans at this facility use at least one of these dose optimization techniques: automated exposure control; mA and/or kV adjustment per patient size (includes targeted exams where dose is matched to clinical indication); or iterative reconstruction. Contrast material: ISOVUE 370; Contrast volume: 75 ml; Contrast route: INTRAVENOUS (IV); COMPARISON: Thyroid, ST head+neck US 10/30/2020 11:26 AM FINDINGS: Paranasal sinuses: Retention cysts in the bilateral maxillary sinuses. Nasopharynx: Unremarkable. Oropharynx: Unremarkable. No significant tonsillar enlargement. Hypopharynx: Unremarkable. Larynx: Unremarkable. Normal epiglottis. Retropharyngeal space: Unremarkable. Submandibular/Parotid glands: Normal. Glands are normal in size. Thyroid: Normal. No enlarged or calcified nodules. Lymph nodes: Unremarkable. No lymphadenopathy. Trachea: Visualized trachea is unremarkable. Lungs: Unremarkable as visualized. Bones/joints: Severe multilevel degenerative disease and facet arthropathy. Multilevel spinal canal and bilateral neural foraminal stenosis most severe at C3-C4. Severe neural foraminal stenosis is also noted at C5-C6 on the left. Soft tissues: Unremarkable. No significant soft tissue swelling. IMPRESSION: Severe multilevel degenerative disease and facet arthropathy. Multilevel spinal canal and bilateral neural foraminal stenosis most severe at C3-C4. Severe neural foraminal stenosis is also noted at C5-C6 on the left. Electronically signed by: Tj Garrett On 11/13/2020 10:21:48 AM
== END ==
LOC: M RAD 09:36
PROVIDERS: ATTEND Otolaryngology
DX: M54.2 Cervicalgia (principal)

== ENCOUNTER → 2020-12-25 | Outpatient (CLI) | payer OTHER ==
[~2020-12-25] MED LIST changes: -ISOVUE-370 76% 100ML VIAL As Ordered ONE
--- NOTE | 2020-12-26 08:20 | REPVR ---
PROCEDURE INFORMATION: Exam: MR Cervical Spine Without Contrast Exam date and time: 12/25/2020 12:39 PM Age: 60 years old Clinical indication: Neck pain; Additional info: Spondylosis TECHNIQUE: Imaging protocol: Multiplanar magnetic resonance images of the cervical spine without contrast. COMPARISON: CT Neck with contrast 11/13/2020 9:59 AM FINDINGS: Vertebrae: No acute fractures seen in the cervical spine. The cervical spine alignment shows mild, less than 15% anterolisthesis of C2 upon C3. Multiple levels of chronic degenerative discovertebral disease with vertebral body endplate osteophytosis and diminished disc height is seen at levels C3 through T1. Spinal cord: Normal signal in the cervical cord. No cord compression. The craniocervical junction is normal. C2-C3: No significant disc disease. No significant spinal canal or neuroforaminal stenosis. C3-C4: Circumferential degenerative disc bulging causing only mild central spinal stenosis at C3/C4. Moderately severe bilateral bony neuroforaminal stenosis is present secondary to uncal joint and posterior facet joint arthropathy. C4-C5: No significant disc disease. No significant spinal canal stenosis. Mild bilateral bony neuroforaminal stenosis is present secondary to uncal joint and posterior facet joint arthropathy. C5-C6: Degenerative anterior disc bulging. No significant spinal canal stenosis. Moderately severe left-sided bony neuroforaminal stenosis is present secondary to uncal joint and posterior facet joint arthropathy. C6-C7: No significant disc disease. No significant spinal canal or neuroforaminal stenosis. C7-T1: No significant disc disease. No significant spinal canal or neuroforaminal stenosis. Soft tissues: Unremarkable prevertebral and posterior paraspinal soft tissues. Vertebral arteries: The expected flow voids in the vertebral arteries are present. IMPRESSION: 1. No acute fractures seen in the cervical spine. The cervical spine alignment shows mild, less than 15% anterolisthesis of C2 upon C3. 2. Multiple levels of chronic degenerative discovertebral disease with vertebral body endplate osteophytosis and diminished disc height is seen at levels C3 through T1. 3. Mild central spinal canal stenosis is present at C3/C4, secondary to mild posterior disc bulging. Normal signal in the cervical cord. No cord compression. The craniocervical junction is normal. 4. Mild to moderately severe chronic degenerative bony neuroforaminal stenoses at levels C3-C6, as detailed above. Electronically signed by: Jordan Breaux On 12/26/2020 08:19:46 AM
== END ==
LOC: M RAD 12:02
PROVIDERS: ATTEND Orthopaedic Surgery
DX: M47.892 Other spondylosis, cervical region (principal)

== ENCOUNTER → 2021-01-28 | Outpatient (REF) | payer OTHER ==
[2021-01-28 19:06] LABS: CREATININE, URINE 86.8 MG/DL; MALB URINE SIEMENS 17.7 MG/L; MAU/CREAT RATIO 20.3 MCG/MG (0.0-30.0)
== END ==
LOC: M LAB REF 17:22
PROVIDERS: ATTEND Nurse Practitioner Family
DX: E11.65 Type 2 diabetes mellitus with hyperglycemia (principal)

== ENCOUNTER → 2021-02-08 | Outpatient (CLI) | payer OTHER ==
[2021-02-09 08:10] LABS: C-PEPTIDE 0.5 ng/mL (1.1-4.4); INSULIN LEVEL 3.1 uIU/mL (2.6-24.9)
== END ==
LOC: M LAB 06:55
PROVIDERS: ATTEND Nurse Practitioner Family
DX: E11.65 Type 2 diabetes mellitus with hyperglycemia (principal)

== ENCOUNTER → 2021-02-08 | Outpatient (CLI) | payer OTHER ==
[2021-02-08 07:38] LABS: HEMATOCRIT 47.9 % (42.0-52.0); HEMOGLOBIN 16.1 g/dl (13.5-17.5); MEAN CORPUSCULAR HEMOGLOBIN 31.6 pg (27.0-33.0); MEAN CORPUSCULAR HGB CONC 33.6 g/dl (32.0-36.5); MEAN CORPUSCULAR VOLUME 93.9 fl (80.0-96.0); PLATELET COUNT, AUTOMATED 209 10^3/uL (150-450); WHITE BLOOD COUNT 5.6 10^3/uL (4.0-10.0)
[2021-02-08 08:16] LABS: ALBUMIN 3.8 GM/DL (3.2-5.2); ALT/SGPT 55 U/L (12-78); BILIRUBIN,TOTAL 0.7 MG/DL (0.2-1.0); BLOOD UREA NITROGEN 14 MG/DL (7-18); CALCIUM LEVEL 9.9 MG/DL (8.8-10.2); CARBON DIOXIDE LEVEL 30 MEQ/L (21-32); CHLORIDE LEVEL 105 MEQ/L (98-107); CREATININE FOR GFR 0.88 MG/DL (0.70-1.30); FERRITIN 48 NG/ML (26-388); GLOMERULAR FILTRATION RATE > 60.0 (>49); GLUCOSE, FASTING 317 MG/DL (70-100); IRON (FE) 161 UG/DL (65-175); MAGNESIUM LEVEL 1.4 MG/DL (1.8-2.4); PERCENT SATURATION 35.6 % (19.7-50.0); POTASSIUM SERUM 3.8 MEQ/L (3.5-5.1); SODIUM LEVEL 140 MEQ/L (136-145); TOTAL IRON BINDING CAPACITY 452 UG/DL (250-450)
[2021-02-08 09:06] LABS: MALB URINE SIEMENS 28.7 MG/L; MAU/CREAT RATIO 14.5 MCG/MG (0.0-30.0)
== END ==
LOC: M LAB 06:57
PROVIDERS: ATTEND Nurse Practitioner Adult Health
DX: E50.9 Vitamin A deficiency, unspecified (principal)

== ENCOUNTER 2021-04-09 13:03 | Emergency (ER) | payer OTHER ==
[~2021-04-09] VITALS: Ht 175.3 cm; Wt 100.0 kg
[2021-04-09] MEDS ORDERED: MULTIVITAMIN -ADULT INJECTION 10 ML, THIAMINE INJection 100 MG, FOLIC ACID 1 MG in NS 1... IV ONE (13:15)
[2021-04-09 13:17] VITALS: BP 124/69
[2021-04-09 13:35] LABS: BASO # 0.1 10^3/uL (0.0-0.2); BASO % 0.9 % (0.0-1.0); EOS # 0.1 10^3/uL (0.0-0.5); EOS % 0.9 % (0.0-3.0); HEMATOCRIT 47.3 % (42.0-52.0); HEMOGLOBIN 16.4 g/dl (13.5-17.5); LYMPH # 3.6 10^3/uL (1.5-5.0); LYMPH % 36.9 % (24.0-44.0); MEAN CORPUSCULAR HGB CONC 34.7 g/dl (32.0-36.5); MEAN CORPUSCULAR VOLUME 97.9 fl (80.0-96.0); MONO % 9.7 % (2.0-8.0); NEUTROPHILS % 51.1 % (36.0-66.0); PLATELET COUNT, AUTOMATED 209 10^3/uL (150-450); RED BLOOD COUNT 4.83 10^6/uL (4.30-6.10); WHITE BLOOD COUNT 9.8 10^3/uL (4.0-10.0)
[2021-04-09 14:19] LABS: OSMOLALITY SERUM 393 MOSM/KG (280-301)
[2021-04-09 14:22] LABS: ACETAMINOPHEN LEVEL < 2.0 UG/ML (10.0-30.0); ALBUMIN 3.5 GM/DL (3.2-5.2); ALT/SGPT 41 U/L (12-78); BILIRUBIN,DIRECT 0.2 MG/DL (0.0-0.2); BILIRUBIN,TOTAL 0.3 MG/DL (0.2-1.0); BLOOD UREA NITROGEN 16 MG/DL (7-18); CALCIUM LEVEL 8.8 MG/DL (8.8-10.2); CARBON DIOXIDE LEVEL 26 MEQ/L (21-32); CHLORIDE LEVEL 109 MEQ/L (98-107); CREATININE FOR GFR 1.03 MG/DL (0.70-1.30); GLOMERULAR FILTRATION RATE > 60.0 (>49); GLUCOSE, FASTING 114 MG/DL (70-100); POTASSIUM SERUM 3.6 MEQ/L (3.5-5.1); SODIUM LEVEL 141 MEQ/L (136-145); TOTAL PROTEIN 6.7 GM/DL (6.4-8.2)
[2021-04-09 15:13] LABS: AMPHETAMINES LEVEL URINE NEGATIVE (NEGATIVE); BARBITURATES URINE NEGATIVE (NEGATIVE); BENZODIAZEPINES URINE NEGATIVE (NEGATIVE); CANNABINOIDS URINE NEGATIVE (NEGATIVE); COCAINE METABOLITE URINE NEGATIVE (NEGATIVE); METHADONE URINE NEGATIVE (NEGATIVE); OPIATES URINE NEGATIVE (NEGATIVE); PHENCYCLIDINE URINE NEGATIVE (NEGATIVE)
== END 2021-04-09 15:27 | disposition left against medical advice (07) ==
LOC: M ED 13:03 → EDBD 13:03 → M ED 15:27
DX: F10.10 Alcohol abuse, uncomplicated (principal); Z53.9 Procedure and treatment not carried out, unspecified reason; E11.9 Type 2 diabetes mellitus without complications; R94.31 Abnormal electrocardiogram [ECG] [EKG]; I10 Essential (primary) hypertension; K73.9 Chronic hepatitis, unspecified; E78.5 Hyperlipidemia, unspecified; Z88.8 Allergy status to other drugs, medicaments and biological substances; Z79.899 Other long term (current) drug therapy
CPT/HCPCS: 70450; 80048; 80076; 80143; 80307; 82077; 82550; 83930; 84443; 85025; 93005; 93041; 94760; 96365; 99284; J3411

== ENCOUNTER → 2021-06-04 | Outpatient (CLI) | payer OTHER ==
[2021-06-04 15:35] LABS: HEMATOCRIT 46.5 % (42.0-52.0); HEMOGLOBIN 16.4 g/dl (13.5-17.5); MEAN CORPUSCULAR HEMOGLOBIN 34.4 pg (27.0-33.0); MEAN CORPUSCULAR HGB CONC 35.3 g/dl (32.0-36.5); MEAN CORPUSCULAR VOLUME 97.5 fl (80.0-96.0); PLATELET COUNT, AUTOMATED 181 10^3/uL (150-450); RED BLOOD COUNT 4.77 10^6/uL (4.30-6.10); WHITE BLOOD COUNT 6.7 10^3/uL (4.0-10.0)
[2021-06-04 15:53] LABS: HEMOGLOBIN A1c 6.4 %
[2021-06-04 16:15] LABS: CREATININE, URINE 50.7 MG/DL; MALB URINE SIEMENS 5.8 MG/L; MAU/CREAT RATIO 11.4 MCG/MG (0.0-30.0)
[2021-06-04 16:17] LABS: ALBUMIN 3.5 GM/DL (3.2-5.2); ALT/SGPT 57 U/L (12-78); BILIRUBIN,TOTAL 0.5 MG/DL (0.2-1.0); BLOOD UREA NITROGEN 10 MG/DL (7-18); CALCIUM LEVEL 9.2 MG/DL (8.8-10.2); CARBON DIOXIDE LEVEL 26 MEQ/L (21-32); CHLORIDE LEVEL 105 MEQ/L (98-107); CHOLESTEROL LEVEL 132 MG/DL (<200); CREATININE FOR GFR 0.86 MG/DL (0.70-1.30); FERRITIN 82 NG/ML (26-388); GLOMERULAR FILTRATION RATE > 60.0 (>49); GLUCOSE, FASTING 350 MG/DL (70-100); HDL CHOLESTEROL 80 MG/DL (>40); IRON (FE) 122 UG/DL (65-175); LDL CHOLESTEROL 23 MG/DL (<100); MAGNESIUM LEVEL 1.3 MG/DL (1.8-2.4); NON-HDL-C 52 MG/DL; PERCENT SATURATION 29.8 % (19.7-50.0); POTASSIUM SERUM 3.8 MEQ/L (3.5-5.1); SODIUM LEVEL 139 MEQ/L (136-145); TOTAL IRON BINDING CAPACITY 410 UG/DL (250-450); TOTAL PROTEIN 6.5 GM/DL (6.4-8.2); TRIGLYCERIDES LEVEL 144 MG/DL (<150)
== END ==
LOC: M PLALAB 13:54
PROVIDERS: ATTEND Nurse Practitioner Adult Health
DX: D50.9 Iron deficiency anemia, unspecified (principal); E11.9 Type 2 diabetes mellitus without complications

== ENCOUNTER → 2021-07-15 | Outpatient (REF) | LOC: M LAB 12:10 ==